=== PATIENT | male | born 1935 | race Caucasian/White ===

== ENCOUNTER → 2016-12-24 | Outpatient (CLI) | payer BC ==
[~2016-12-24] MED LIST: ASPEC81 PO; ATOR-22 PO; B-COTAB18 PO; CLOP1TAB15 PO; COQ10100 PO; GLGKIT; INSUINJ SC; INSUINJ17 SC; LATA0.009 OPB; METO1TAB69 PO; MULT-506 PO; NIAC1TAB59 PO; OMEG10007 PO; OMEP20CA9 PO; SYN100 PO
[2016-12-24 13:20] LABS: ESTIMATED AVERAGE GLUCOSE 174 mg/dl; HA1C FLAG Normal (Normal)
[2016-12-24 13:21] LABS: ALT/SGPT 34 U/L (12-78); BLOOD UREA NITROGEN 18 mg/dl (7-18); BUN/CREATININE RATIO 16.4 (10-20); CALCIUM 8.7 mg/dl (8.5-10.1); CARBON DIOXIDE 27 mmol/L (21-32); CHLORIDE 105 mmol/L (98-107); GLUCOSE 198 mg/dl (70-99); POTASSIUM 4.5 mmol/L (3.5-5.1); SODIUM 139 mmol/L (136-145)
[2016-12-24 13:24] LABS: ALKALINE PHOSPHATASE 107 U/L (45-117); AST/SGOT 20 U/L (15-37)
== END | disposition home or self-care (01) ==
LOC: C.LAB1850 12:14
PROVIDERS: ATTEND Internal Medicine
DX: E11.8 Type 2 diabetes mellitus with unspecified complications (principal); E78.00 Pure hypercholesterolemia, unspecified

== ENCOUNTER → 2017-03-21 | Outpatient (CLI) | payer BC ==
[~2017-03-21] MED LIST changes: +METO100T44 PO; -METO1TAB69 PO
== END | disposition home or self-care (01) ==
LOC: C.LAB1850 07:36
PROVIDERS: ATTEND Urology
DX: R39.9 Unspecified symptoms and signs involving the genitourinary system (principal); Z85.46 Personal history of malignant neoplasm of prostate

== ENCOUNTER → 2017-05-09 | Outpatient (CLI) | payer BC ==
[~2017-05-09] MED LIST changes: -METO100T44 PO; +METO1TAB69 PO
[2017-05-09 09:44] LABS: BLOOD UREA NITROGEN 15 mg/dl (7-18); BUN/CREATININE RATIO 13.4 (10-20); CALCIUM 9.2 mg/dl (8.5-10.1); CARBON DIOXIDE 30 mmol/L (21-32); CHLORIDE 107 mmol/L (98-107); GLUCOSE 221 mg/dl (70-99); POTASSIUM 4.7 mmol/L (3.5-5.1); SODIUM 140 mmol/L (136-145)
[2017-05-09 09:54] LABS: CHOLESTEROL 159 mg/dl (0-200); CHOLESTEROL/HDL RATIO 3.7; HDL CHOLESTEROL 43 mg/dl; LDL CHOLESTEROL CALCULATED 82 mg/dl; TRIGLYCERIDES 171 mg/dl (0-150); VERY LOW DENSITY LIPOPROT CALC 34 mg/dl
[2017-05-09 12:37] LABS: ESTIMATED AVERAGE GLUCOSE 186 mg/dl; HA1C FLAG Normal (Normal)
== END | disposition home or self-care (01) ==
LOC: C.LAB1850 07:25
PROVIDERS: ATTEND Nurse Practitioner Family
DX: E11.8 Type 2 diabetes mellitus with unspecified complications (principal)

== ENCOUNTER → 2017-10-08 | Outpatient (CLI) | payer BC ==
[~2017-10-08] MED LIST changes: +METO100T44 PO; -METO1TAB69 PO
[2017-10-08 09:44] LABS: ESTIMATED AVERAGE GLUCOSE 171 mg/dl; HA1C FLAG Normal (Normal)
[2017-10-08 10:23] LABS: ALT/SGPT 36 U/L (12-78); AST/SGOT 23 U/L (15-37); BLOOD UREA NITROGEN 26 mg/dl (7-18); CALCIUM 8.5 mg/dl (8.5-10.1); CARBON DIOXIDE 24 mmol/L (21-32); CHLORIDE 108 mmol/L (98-107); CREATININE 1.03 mg/dl (0.60-1.40); GLUCOSE 125 mg/dl (70-99); POTASSIUM 4.3 mmol/L (3.5-5.1); SODIUM 138 mmol/L (136-145)
[2017-10-08 10:28] LABS: ALKALINE PHOSPHATASE 96 U/L (45-117)
[2017-10-08 10:39] LABS: RATIO 17.7 mcg/mg (0-30.0)
== END | disposition home or self-care (01) ==
LOC: C.LAB1850 08:02
PROVIDERS: ATTEND Urology
DX: E11.40 Type 2 diabetes mellitus with diabetic neuropathy, unspecified (principal); Z51.81 Encounter for therapeutic drug level monitoring; Z79.4 Long term (current) use of insulin; C61 Malignant neoplasm of prostate

== ENCOUNTER → 2018-03-17 | Outpatient (CLI) | payer BC | END | disposition home or self-care (01) | LOC: C.LAB1850 10:19 | PROVIDERS: ATTEND Urology | DX: R97.20 Elevated prostate specific antigen [PSA] (principal) ==

== ENCOUNTER 2020-09-15 17:00 | Inpatient (IN) ==
[2020-09-15] MEDS ORDERED: ASPIRIN CHEW 324 MG PO STA (17:55)
[2020-09-15] MEDS ORDERED: NITROGLYCERIN SL 0.4 MG/TAB TAB SL STA (17:57)
[2020-09-15] MEDS ORDERED: ASPIRIN CHEW 324 MG ONE (17:57)
[2020-09-15] MEDS ORDERED: HEPARIN SOD (PORCINE) 1000 UNIT/ML 10 ML VIAL ONE (17:57)
[2020-09-15] MEDS ORDERED: TICAGRELOR 90 MG TAB PO ONE (17:57)
--- NOTE | 2020-09-15 18:11 | XRay Report ---
XR chest 1V portable CLINICAL HISTORY: Chest pain COMPARISON STUDY: Chest radiograph February 10, 2014. FINDINGS: Median sternotomy wires are noted as well as mediastinal surgical clips. There is moderate cardiomegaly. No pneumothorax or pleural effusion is noted. Note is made of pulmonary vascular conges tion with reticulonodular interstitial thickening. Hazy opacity along the left heart border is unchan ged. No lobar consolidation is present. IMPRESSION: 1. Reticulonodular interstitial thickening. Pulmonary edema is favored. An infectious process could a ppear similar but is considered less likely. 2. Moderate cardiomegaly. 3. No change in hazy opacity along the left heart border which can be assessed on subsequent exams. ACT 112: Negative or not required by law. Electronically signed by: Al Alston M.D. 09/15/2020 6:09 PM
[2020-09-15 18:12] LABS: Basophils # (auto) 0.01 K/uL (0-0.2); Basophils % (auto) 0.1 %; Eosinophils # (auto) 0.01 K/uL (0-0.5); Eosinophils % (auto) 0.1 %; Hemoglobin 15.3 g/dL (14.0-18.0); Immature Granulocytes # (auto) 0.03 K/uL (0.00-0.02); Immature Granulocytes % (auto) 0.3 %; Lymphocytes # (auto) 1.12 K/uL (1.2-3.4); Lymphocytes % (auto) 10.1 %; Mean Corpuscular Hemoglobin 30.9 pg (25-34); Mean Corpuscular Hgb Conc 34.8 g/dL (32-36); Mean Corpuscular Volume 88.9 fL (80-100); Mean Platelet Volume 10.6 fL (7.4-10.4); Monocytes # (auto) 0.56 K/uL (0.11-0.59); Neutrophils % (auto) 84.4 %; Platelet Count 241 K/uL (130-400); RDW Coefficient of Variation 14.1 % (11.5-14.5); Red Blood Count 4.95 M/uL (4.7-6.1); White Blood Count 11.13 K/uL (4.8-10.8)
[2020-09-15] MEDS ORDERED: niCARdipine HCL INJ 2.5 MG/ML 10 ML AMP ONE (18:12)
[2020-09-15] MEDS ORDERED: HEPARIN (PORCINE) 1000 UNIT/ML 10 ML (CATH LAB USE ONLY) ONE (18:12)
[2020-09-15] MEDS ORDERED: fentaNYL citrate 100 MCG/2 ML VIAL ONE (18:13)
[2020-09-15] MEDS ORDERED: MIDAZOLAM HCL 1 MG/ML 2ML VIAL ONE (18:13)
[2020-09-15] MEDS ORDERED: NITROGLYCERIN/D5W 100MCG/ML 20ML SYR ONE (18:13)
[2020-09-15] MEDS ORDERED: HEPARIN SOD (PORCINE) 1000 UNIT/ML 10 ML VIAL IV STA (18:14)
[2020-09-15] MEDS ORDERED: CLOPIDOGREL BISULFATE 300 MG TAB ONE (18:22)
[2020-09-15 18:25] LABS: Partial Thromboplastin Ratio 1.1; Partial Thromboplastin Time 30.2 Seconds (21.0-31.0); Prothrombin Time 10.9 Seconds (9.0-12.0)
[2020-09-15 18:34] LABS: Albumin Level 3.6 gm/dl (3.4-5.0); BUN Creatinine Ratio 13.5 (10-20); Calcium 9.3 mg/dl (8.5-10.1); Creatinine Clr Calc Pharmacy 41.4 ml/min; Est GFR (African American) 44.2; Est GFR (Non-African American) 38.1; Magnesium 2.2 mg/dl (1.8-2.4); Potassium 4.9 mmol/L (3.5-5.1)
[2020-09-15 18:45] LABS: Albumin Globulin Ratio 0.8 (0.9-2); Beta-Hydroxybutyrate 3.78 mg/dl (0.2-2.81); Bilirubin,Total 0.7 mg/dl (0.2-1); Creatine Kinase MB 37.8 ng/ml (0.5-3.6); Globulin 4.6 gm/dl (2.5-4.0); Thyroid Stimulating Hormone 1.28 uIu/ml (0.300-4.500); Total Protein 8.2 gm/dl (6.4-8.2); Troponin I 3.02 ng/ml (0-0.045)
--- NOTE | 2020-09-15 19:44 | Post Anesthesia Assessment ---
Date of Service September 15, 2020 Post Sedation Assessment Vital Signs Temp Pulse Pulse Resp BP BP Pulse Ox 09/15/20 18:18 98 09/15/20 18:11 90 20 157/89 H 96 09/15/20 18:00 102 H 18 142/86 H 99 09/15/20 17:52 91 H 22 145/83 H 97 09/15/20 17:02 97.7 F 92 H 18 09/15/20 17:00 99 Recovery Score Activity: Moves 4 extremities Respiration: Deep Breath/Cough Circulation: +/-20% PreAnes Value Consciousness: Fully Awake Oxygen Saturation: O2 needed for >90% Discharge Sedation Level of Care: Fast Track Phase II Post Sedation Plan On clinical assessment, the patient appears to have tolerated the sedation without complications. Patient is recovering as anticipated. Patient will continue to be monitored by nursing and may be discharged when sedation discharge criteria are met per below protocol. Upon Completions of procedure up to 15 minutes continue every 5 minute vital signs and the P.A.R. score; then discharge to a Phase I or Fast Track to Phase II per the following guidelines: * Discharge Patient to appropriate Phase II area if PAR is 8 or greater or return to pre- procedure baseline. The post - procedure orders will be as directed. * If PAR score is less than 8 or not return to pre-procedure baseline then patient will follow Phase I monitoring till PAR is reached for Phase II. The Phase I may be done in procedure room or may call to secure a Phase I area. * If naloxone or flumazenil are used for reversal, hold in Phase I for continued monitoring from when last reversal dose was given for a minimum of 60 minutes or longer pending the nurse and/or physician discretion of patient condition before discharge to Phase II. Please call the Sedation Physician to re-evaluate and complete post-note for discharge to Phase II area. Do NOT discharge from procedure sedation or Phase 1 until post- sedation evaluation note is complete by procedure /sedation MD Sedation Discharge Instructions to be given to the patient at discharge to home.
[2020-09-15] MEDS ORDERED: ACETAMINOPHEN 325 MG TAB PO PRN (19:50)
[2020-09-15] MEDS ORDERED: ONDANSETRON INJ 2 MG/ML 2 ML VIAL IV PRN (19:50)
[2020-09-15] MEDS ORDERED: MoRPHine SULFATE 2 MG/ML CARP IV PRN (19:50)
[2020-09-15] MEDS ORDERED: Heparin IV Standard *NO* Bolus IV ONE (19:55)
[2020-09-15] MEDS ORDERED: NITROGLYCERIN SL 0.4 MG/TAB TAB SL PRN (19:55)
[2020-09-15] MEDS ORDERED: SODIUM CHLORIDE 0.9% 1000ML 1,000 ML IV SCH (20:00)
[2020-09-15] MEDS ORDERED: GLUCOSE 10 TABS/TUBE PO PRN (20:02)
[2020-09-15] MEDS ORDERED: GLUCAGON FOR INJ 1 MG VIAL SQ PRN (20:02)
[2020-09-15] MEDS ORDERED: DEXTROSE 50% 50 ML SYRINGE IV PRN (20:02)
[2020-09-15] MEDS ORDERED: GLUCOSE 40% GEL 15 GM TUBE PO PRN (20:02)
[2020-09-15] MEDS ORDERED: PHARMACY GLYCEMIC MGMT CONSULT PRN (20:09)
--- NOTE | 2020-09-15 20:17 | Cardiology Consultation ---
Date of Consultation September 15, 2020 Assessment & Plan (1) Acute [place]: Presentation concerning for inferior [place]. RCA previously with moderate to severe disease that was not bypassed in 2014. Recommend proceeding with emergent cardiac catheterization and possible primary PCI. No apparent contraindications to procedure. Discussed risks, benefits, alternatives of procedure with patient and they are willing to proceed. Given IV heparin and clopidogrel in the ED. Further recommendations pending findings of coronary angiograph History of Present Illness History of Present Illness 84-year-old man here with acute chest pain and ECG concerning for acute [place]. Patient seen emergently in the ED after heart alert activated upon arrival. Past cardiac history remarkable for coronary artery disease post two-vessel CABG in 2013 (ANURADHA to LAD, TESFAYE to circumflex), moderate to severe aortic stenosis, hypertension. He is followed by Dr. Trotter as an outpatient. 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 Patient active at baseline. Today was working in his yard when developed persistent shortness of breath. Has had similar shortness of breath with exertion usually resolving with rest but today symptoms persisted. Denies any real chest pain. In the ED when hemodynamically stable. No chest pain and shortness of breath had largely resolved. Initial ECG showed inferior ST elevations, lateral ST depressions as well as elevation in aVR. Allergies Allergy/AdvReac Type Severity Reaction Status Date / Time adhesive Allergy Mild RASH Verified 08/14/20 10:58 Penicillins Allergy Unknown RASH Verified 08/14/20 10:58 Home Medications Home Medications Medication Instructions Recorded Confirmed Type multivitamin 1 tab PO DAILY #30 tab 05/31/19 08/14/20 Rx omega-3 fatty acids 1,000 mg 1,000 mg PO DAILY #30 cap 05/31/19 08/14/20 Rx capsule vitamin B complex 1 tab PO DAILY #30 tab 05/31/19 08/14/20 Rx aspirin 325 mg tablet 325 mg PO DAILY tab 07/14/19 08/14/20 History latanoprost 0.005 % eye drops 1 drops OP DAILY ml 07/14/19 08/14/20 History levothyroxine 100 mcg tablet 100 mcg PO DAILY #90 tab 12/06/19 08/14/20 Rx losartan 25 mg tablet 25 mg PO DAILY #90 tab 12/06/19 08/14/20 Rx omeprazole 20 mg capsule,delayed 20 mg PO DAILY #90 cap 12/06/19 08/14/20 Rx release blood sugar diagnostic #180 ea 12/10/19 08/14/20 Rx metoprolol succinate 100 mg 100 mg PO DAILY #90 tab 05/08/20 08/14/20 Rx tablet,extended release 24 hr Humulin N NPH U-100 Insulin 100 See Rx Instructions SQ .COMPLEX 05/25/20 08/14/20 Rx unit/mL subcutaneous #50 ml NS Humulin R Regular U-100 Insuln 100 See Rx Instructions SQ BID #30 ml 05/25/20 08/14/20 Rx unit/mL injection solution NS insulin syringe-needle U-100 1 mL ea 05/25/20 08/14/20 History 31 gauge x 5/16" atorvastatin 20 mg tablet 20 mg PO QPM #90 tab 09/08/20 Rx Patient History Medical History (Updated 09/15/20 @ 20:14 by Shay Holt MD) CAD (coronary artery disease) (12/30/13) Diabetes mellitus, with long-term current use of insulin Diabetic peripheral neuropathy Elevated prostate specific antigen (PSA) GERD without esophagitis Glaucoma History of parotid cancer Hypercholesterolemia Hypertension Malignant neoplasm of prostate Mitral regurgitation Moderate to severe aortic stenosis Never smoker Obesity (BMI 30-39.9) Osteoarthritis of hands, bilateral Osteoarthritis of left knee Primary hypothyroidism Tricuspid regurgitation Type 2 diabetes mellitus, with long-term current use of insulin Surgical History H/O transfusion of whole blood H/O varicose veins November 1970 History of genitourinary surgery 04/05/2003 S/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 Family History Brother Prostate cancer Family/Other Cancer Diabetes Heart disease Hypertension Denies family history of Colon cancer Ovarian cancer Myocardial infarction Breast cancer Social History Smoking Status: Never smoker Second Hand Exposure: No; Hx Alcohol Use: Yes Hx Substance Use: No Preferred Language: Malay Visual Impairment: No Limitations Hearing Ability: Normal Beliefs That Will Affect Care: None marital status: / Current Living Situation: Alone current occupational status: retired Feels Safe at Home: Yes and No Childhood Exposure to Second-Hand Smoke: Yes Dental Care, Regularly: No Physical Activity Frequency: 3-4 Times per Week Seatbelt Use: always Sunscreen Use: No Review of Systems Review of Systems: All systems reviewed & are unremarkable except as noted in HPI & below Physical Exam Physical Exam: General: Comfortable, no acute distress HEENT: Sclerae anicteric, mucous membranes moist Lungs: Clear to auscultation bilaterally Cardiac: Regular rate and rhythm, 2/6 systolic ejection murmur, late peaking Abdomen: Soft, nontender, nondistended, positive bowel sounds. Extremities: Warm, well perfused, no edema. 2+ radial pulses Neuro: Nonfocal Psych: Alert orient x3, normal affect and mood Results & Data ([facility]) Vital Signs (Past 12 Hours) Vital Signs Temp Pulse Pulse Resp BP BP Pulse Ox 09/15/20 18:18 98 09/15/20 18:11 90 20 157/89 H 96 09/15/20 18:00 102 H 18 142/86 H 99 09/15/20 17:52 91 H 22 145/83 H 97 09/15/20 17:02 97.7 F 92 H 18 09/15/20 17:00 99 PG Care Time/CCT Total # of Minutes Spent Total Time Spent with Patient: Total time spent is greater than 50% in coordination of care (as documented) at patient's floor/unit and/or counseling patient: Coding Level of Care Code 09537 Initial Inpt Care Lvl 3 Diagnoses Acute W[place] I21.9
--- NOTE | 2020-09-15 20:23 | Post Operative Brief Note ---
Cardiology Brief Post Op Date of Surgery September 15, 2020 Pre & Post Diagnosis Operation Date: 09/15/20 18:00 <No data on this case meets the specified criteria> Procedure -- Curb And Gutter Laborer Aj Holt MD Operations Supervisor [employer] Young Estimated Blood Loss 10 Findings See Below 1. 100% chronic distal left main occlusion 2. 50 to 60% proximal to mid RCA 3. ANURADHA to LAD widely patent. 90+% mid LAD stenosis after anastomosis 4. TESFAYE to high first diagonal widely patent. Retrofills for left main. Proximal circumflex appears acute on chronically occluded. OM, left PLB fills slowly largely from retrograde left to left collaterals from diagonal. Recommendations: Culprit likely acute on chronic proximal circumflex occlusion. OM, left PLB partially fills via collaterals. Proximal circumflex lesion not amenable to PCI through graft and as patient is pain-free recommend medical management.
[2020-09-15] MEDS ORDERED: INSULIN HUMAN NPH SC ONE (21:00)
[2020-09-15] MEDS: HEPARIN SODIUM/DEXTROSE 25,000 UNITS/500 ML BAG IV SCH (21:20)
[2020-09-15] MEDS: METOPROLOL TARTRATE 25 MG TAB PO SCH (21:34)
[2020-09-15] MEDS: INSULIN ASPART 100 UNITS/ML 3 ML PEN SC SCH (21:51)
--- NOTE | 2020-09-15 23:25 | Cardiac Catheterization ---
[facility] Data: Sign Maker Cardiac Status Clinical evaluation leading to the procedure CAD Presenation: STEMI Anginal Classification: CCS IV Heart Failure: No Cardiogenic Shock within 24 Hours: No Cardiac Arrest within 24 Hours: No Imaging Studies Past 6 Months: Yes Stress Studies Past 6 Months: No Diagnostic Physicians Name: Aj Holt MD Status: Emergency Closure Device Percutaneous Entry Location: Femoral Closure Device: Angio-Seal Recommendations: Medical Therapy and/or Counseling Intraprocedure Events Significant Disection: No Perforation: No Cardiac Cath Procedure Full Procedure Date September 15, 2020 Pre-Procedure Diagnosis Pre-Procedure Diagnosis: STEMI AUC Score AUC Score: 9 Post-Procedure Diagnosis Post-Procedure Diagnosis: Severe CAD Procedure(s) Performed Procedure(s) Performed: Coronary Angiography, Bypass Graft Angiography and Femoral Artery Angiography Associate Professor Of Music Aj Holt MD Varnish Blender(s) Young Estimated Blood Loss Estimated Blood Loss: 10 Medication(s) Medication(s): Clopidogrel, Fentanyl, Lidocaine 1%, Nicardipine, Nitroglycerin and Versed Summary of Findings Indication: Acute coronary syndrome. History of CAD post two-vessel CABG (ANURADHA to LAD, TESFAYE to circumflex). Access: 6 Fr right common femoral artery Catheters: JR4, JL4, NUBIA, pigtail Findings: LM -diffusely diseased, 100% distal occlusion LADproximally fills via retrograde filling from diagonal. Diffuse proximal to mid disease prior to takeoff of small second diagonal with 90% ostial stenosis. [id number]% acute on chronic appearing occlusion. Medium caliber OM 2, left PLB fill primarily via retrograde left to left collaterals from diagonal. RCA - dominant, small caliber, 50 to 60% proximal to mid disease. Small distal RCA, right PDA without significant disease ANURADHA to LADwidely patent. 90+% focal stenosis in mid LAD just after anastomosis. TESFAYE to high first diagonalwidely patent. Diagonal without significant disease after anastomosis. Arterial Closure: Angio-Seal Summary: 1. Severe [place] multivessel coronary artery disease -100% chronic distal left main occlusion 100% proximal acute on chronic circumflex occlusion 90+% mid LAD stenosis after anastomosis of ANURADHA 50 to 60% proximal to mid RCA 2. Widely patent ANURADHA to LAD, TESFAYE to first diagonal. Recommendations: Acute culprit thought to be acute on chronic occlusion of proximal circumflex. Suspect that medium caliber OM 2, left PLB previously filled partially via flow from bypassed diagonal. Proximal circumflex not amenable to PCI via TESFAYE bypass graft. In the setting of left to left collaterals to circumflex territory and with patient being chest pain-free, recommend medical management. Admit to telemetry Trend troponin until peak Check echocardiogram in a.m. Continue heparin infusion for 48 hours Continue DAPT with aspirin, clopidogrel Further consideration of PCI to mid LAD anastomosis pending clinical course. Hemodynamics Rest Ao:: 114/48/78 Final Ao: 130/51/82 LV: -- Recommendations Recommendations: Medical Therapy and/or Counseling Specimens Specimens: None Radiation Exposure (mGy) 2404 Contrast (mls) 80 Fluids (cc crystalloids) Fluids (cc crystalloids): 75 Drains Drains: none Anesthesia moderate Procedural Complication(s) None Disposition PCU I attest to the content of the Intraoperative Record and any orders documented therein. Any exceptions are noted below. [facility] Card Cath Procedure Codes Cardiac Catheterization Procedure 1: Cardiovascular Cath Procedures: 55376 Coronaries and Grafts/IM (venous & atrial) Moderate Sedation Procedure 1: Sedation/Anesthesia: 25119 Mod Sedation by the same physician;Init15 Min Child Age 5 & Up Procedure 2: Sedation/Anesthesia: 84828 Mod Sedation by the same physician; Ea [id number] Minutes PG Care Time/CCT Total # of Minutes Spent Total Time Spent with Patient: Total time spent is greater than 50% in coordination of care (as documented) at patient's floor/unit and/or counseling patient:
--- NOTE | 2020-09-15 23:36 | Emergency Department Note ---
History of Present Illness General Chief complaint: Shortness of Breath/Dyspnea Stated complaint: sob Time Seen by Provider: 09/15/20 17:45 Source: patient and RN notes reviewed Mode of arrival: ambulatory Limitations: no limitations History of Present Illness Provider complaint: Shortness of breath This patient is an 84-year-old male who presents to the emergency department with complaints of shortness of breath. The patient states it began earlier this afternoon while he was doing yard work. Patient states it feels currently like there is a squeezing sensation across his chest although it is minimal. Patient denies any nausea, vomiting, abdominal pain. He states he had a two- vessel bypass done at [facility] approximately 6 years ago. He follows with Dr. Trotter and states currently they are "working on a heart valve." Home Medications Home Medications Medication Instructions Recorded Confirmed Type multivitamin 1 tab PO DAILY #30 tab 05/31/19 08/14/20 Rx omega-3 fatty acids 1,000 mg 1,000 mg PO DAILY #30 cap 05/31/19 08/14/20 Rx capsule vitamin B complex 1 tab PO DAILY #30 tab 05/31/19 08/14/20 Rx aspirin 325 mg tablet 325 mg PO DAILY tab 07/14/19 08/14/20 History latanoprost 0.005 % eye drops 1 drops OP DAILY ml 07/14/19 08/14/20 History levothyroxine 100 mcg tablet 100 mcg PO DAILY #90 tab 12/06/19 08/14/20 Rx losartan 25 mg tablet 25 mg PO DAILY #90 tab 12/06/19 08/14/20 Rx omeprazole 20 mg capsule,delayed 20 mg PO DAILY #90 cap 12/06/19 08/14/20 Rx release blood sugar diagnostic #180 ea 12/10/19 08/14/20 Rx metoprolol succinate 100 mg 100 mg PO DAILY #90 tab 05/08/20 08/14/20 Rx tablet,extended release 24 hr Humulin N NPH U-100 Insulin 100 See Rx Instructions SQ .COMPLEX 05/25/20 08/14/20 Rx unit/mL subcutaneous #50 ml NS Humulin R Regular U-100 Insuln 100 See Rx Instructions SQ BID #30 ml 05/25/20 08/14/20 Rx unit/mL injection solution NS insulin syringe-needle U-100 1 mL ea 05/25/20 08/14/20 History 31 gauge x 5/16" atorvastatin 20 mg tablet 20 mg PO QPM #90 tab 09/08/20 Rx Allergies Allergy/AdvReac Type Severity Reaction Status Date / Time adhesive Allergy Mild RASH Verified 08/14/20 10:58 Penicillins Allergy Unknown RASH Verified 08/14/20 10:58 Past Med/Surg History Medical History (Updated 09/16/20 @ 00:15 by Martha Castillo MD) CAD (coronary artery disease) (12/30/13) Diabetes mellitus, with long-term current use of insulin Diabetic peripheral neuropathy Elevated prostate specific antigen (PSA) GERD without esophagitis Glaucoma History of parotid cancer Hypercholesterolemia Hypertension Malignant neoplasm of prostate Mitral regurgitation Moderate to severe aortic stenosis Never smoker Obesity (BMI 30-39.9) Osteoarthritis of hands, bilateral Osteoarthritis of left knee Primary hypothyroidism Tricuspid regurgitation Type 2 diabetes mellitus, with long-term current use of insulin Surgical History H/O transfusion of whole blood H/O varicose veins November 1970 History of genitourinary surgery 04/05/2003 S/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 Family History Brother Prostate cancer Family/Other Cancer Diabetes Heart disease Hypertension Denies family history of Colon cancer Ovarian cancer Myocardial infarction Breast cancer Social History Smoking Status: Never smoker Second Hand Exposure: No; Hx Alcohol Use: Yes Alcohol type: beer Hx Substance Use: No Preferred Language: Chinese Communication Ability: Effective Visual Impairment: No Limitations Hearing Ability: Normal 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 and A total of 10 systems reviewed and were otherwise negative Physical Exam Vital Signs Vital Signs - 24 hr 09/15/20 17:00 09/15/20 17:02 09/15/20 17:52 Temperature 36.5 C Temperature Source Oral Pulse Rate 92 H 91 H Pulse Rate [Apical] Respiratory Rate 18 22 Respiratory Effort / Characteristics Non-Labored Spontaneous Respiratory Depth Normal Respiratory Pattern Blood Pressure 145/83 H Blood Pressure [Left Arm] Blood Pressure Mean 107 Blood Pressure Mean [Left Arm] Blood Pressure Position [Left Arm] Pulse Oximetry 99 97 Oxygen Delivery Method Room Air Room Air Oxygen Flow Rate Sepsis Recent Fever Within 48 Hours No Sepsis New/Unexplained Change in Mental Status No Sepsis Action Taken by Nursing No Action Required 09/15/20 18:00 09/15/20 18:11 09/15/20 18:18 Temperature Temperature Source Pulse Rate 90 Pulse Rate [Apical] 102 H Respiratory Rate 18 20 Respiratory Effort / Characteristics Non-Labored Spontaneous Respiratory Depth Normal Respiratory Pattern Regular Blood Pressure 157/89 H Blood Pressure [Left Arm] 142/86 H Blood Pressure Mean 128 Blood Pressure Mean [Left Arm] 104 Blood Pressure Position [Left Arm] Pulse Oximetry 99 96 98 Oxygen Delivery Method Room Air Room Air Room Air Oxygen Flow Rate Sepsis Recent Fever Within 48 Hours Sepsis New/Unexplained Change in Mental Status Sepsis Action Taken by Nursing 09/15/20 19:30 Temperature 36.5 C Temperature Source Oral Pulse Rate Pulse Rate [Apical] 86 Respiratory Rate 20 Respiratory Effort / Characteristics Respiratory Depth Respiratory Pattern Blood Pressure Blood Pressure [Left Arm] 121/75 Blood Pressure Mean Blood Pressure Mean [Left Arm] 90 Blood Pressure Position [Left Arm] Lying Pulse Oximetry 94 Oxygen Delivery Method Nasal Cannula Oxygen Flow Rate 4 Sepsis Recent Fever Within 48 Hours Sepsis New/Unexplained Change in Mental Status Sepsis Action Taken by Nursing Vital signs reviewed. General: Well-appearing 84 yo male, in no significant distress. HEENT: No scleral icterus, PERRLA, neck supple. Atraumatic. Cardiovascular: Regular rate and rhythm, systolic ejection murmur Pulmonary: Clear to auscultation bilaterally, normal work of breathing. Abdomen: Soft, nontender, nondistended, positive bowel sounds. Musculoskeletal: Atraumatic, no significant peripheral edema. Neurologic: Patient awake alert and oriented x 3 Skin: Warm, dry, no rash Course Administered Medications Sodium Chloride (Nss 1000ml) 1,000 mls @ 100 mls/hr IV .Q10H ARIAN Stop: 09/16/20 03:29 Last Admin: 09/15/20 21:23 Dose: 100 mls/hr Documented by: [id number] Heparin Sodium/Dextrose (Heparin Sodium/Dextrose) 25,000 units in 500 mls @ 31 mls/hr IV .Q16H8M [facility]; Protocol Stop: 10/15/20 19:59 Last Admin: 09/15/20 21:20 Dose: 1,550 units/hr, 31 mls/hr Documented by: [id number] Cosigned by: [id number] Insulin Aspart (Insulin Aspart 100 Units/Ml 3 Ml Pen) 0 units SC ACHS [facility] Stop: 10/15/20 20:59 Last Admin: 09/15/20 21:51 Dose: 22 units Documented by: [id number] Cosigned by: [id number] Metoprolol Tartrate (Metoprolol Tartrate 25 Mg Tab) 25 mg PO Q8H [facility] Stop: 10/15/20 20:14 Last Admin: 09/15/20 21:34 Dose: 25 mg Documented by: [id number] Discontinued Medications Aspirin (Aspirin Chew 324 Mg) Confirm Administered Dose 324 mg .ROUTE .STK-MED ONE Stop: 09/15/20 17:58 Last Admin: 09/15/20 18:04 Dose: 324 mg Documented by: [id number] Clopidogrel Bisulfate (Clopidogrel Bisulfate 300 Mg Tab) Confirm Administered Dose 600 mg .ROUTE .STK-MED ONE Stop: 09/15/20 18:23 Last Admin: 09/15/20 18:24 Dose: 600 mg Documented by: [id number] Fentanyl Citrate (Fentanyl Citrate 100 Mcg/2 Ml Vial) Confirm Administered Dose 100 mcg .ROUTE .STK-MED ONE Stop: 09/15/20 18:14 Last Increment: 09/15/20 19:06 Dose: 50 mcg Documented by: [id number] Heparin Sodium (Porcine) (Heparin (Porcine) 1000 Unit/Ml 10 Ml (Cartography/Mapping Technician Use Only)) Confirm Administered Dose 10,000 units .ROUTE .STK-MED ONE Stop: 09/15/20 18:13 Last Admin: 09/15/20 19:07 Dose: Not Given Documented by: [id number] Heparin Sodium (Porcine) (Heparin Sod (Porcine) 1000 Unit/Ml 10 Ml Vial) 5,000 units IV NOW STA Stop: 09/15/20 18:15 Last Admin: 09/15/20 18:16 Dose: 5,000 units Documented by: [id number] Cosigned by: [id number] Heparin Sodium/Sodium Chloride (Heparin In Nss Infusion 1000 Unit/500 Ml (2 U/Ml) Bag) Confirm Administered Dose 3,000 units IV .STK-MED ONE Stop: 09/15/20 18:14 Last Admin: 09/15/20 19:06 Dose: 3,000 units Documented by: [id number] Insulin Human NPH (Insulin Human Nph) 40 units SC NOW ONE Stop: 09/15/20 21:01 Last Admin: 09/15/20 21:51 Dose: 40 units Documented by: [id number] Cosigned by: [id number] Midazolam HCl (Midazolam Hcl 1 Mg/Ml 2ml Vial) Confirm Administered Dose 2 mg .ROUTE .STK-MED ONE Stop: 09/15/20 18:14 Last Increment: 09/15/20 19:06 Dose: 1 mg Documented by: [id number] Nicardipine HCl (Nicardipine Hcl Inj 2.5 Mg/Ml 10 Ml Amp) Confirm Administered Dose 25 mg .ROUTE .STK-MED ONE Stop: 09/15/20 18:13 Last Admin: 09/15/20 19:07 Dose: 25 mg Documented by: [id number] Nitroglycerin (Nitroglycerin Sl 0.4 Mg/Tab Tab) 0.4 mg SL NOW STA Stop: 09/15/20 17:58 Last Admin: 09/15/20 18:03 Dose: 0.4 mg Documented by: [id number] Nitroglycerin/Dextrose (Nitroglycerin/D5w 100mcg/Ml 20ml Syr) Confirm Administered Dose 2,000 mcg .ROUTE .STK-MED ONE Stop: 09/15/20 18:14 Last Admin: 09/15/20 19:06 Dose: 2,000 mcg Documented by: [id number] Medical Decision Making Differential Diagnosis Reactive airway disease, pneumonia, pneumothorax, COPD, CHF, infections, cardiac ischemia, pulmonary embolism, musculoskeletal, gastrointestinal, as well as other pathologies. Medical Records Attestation: I reviewed the patient's medical records. Home Medications Current Medication List: was personally reviewed by me Laboratory Data Attestation: I reviewed the patient's lab results. Result diagrams: 09/15/20 17:59 09/15/20 17:59 Lab Results 09/15/20 09/15/20 09/15/20 Range/Units 17:59 17:59 17:59 WBC 11.13 H (4.8-10.8) K/uL RBC 4.95 (4.7-6.1) M/uL Hgb 15.3 (14.0-18.0) g/dL Hct 44.0 (42-52) % MCV 88.9 (80-100) fL MCH 30.9 (25-34) pg MCHC 34.8 (32-36) g/dL RDW Std Deviation 46.0 (36.4-46.3) fL RDW Coeff of Jaziel 14.1 (11.5-14.5) % Plt Count 241 (130-400) K/uL MPV 10.6 H (7.4-10.4) fL Immature Gran % (Auto) 0.3 % Neut % (Auto) 84.4 % Lymph % (Auto) 10.1 % [place] % (Auto) 5.0 % Eos % (Auto) 0.1 % Baso % (Auto) 0.1 % Neut # (Auto) 9.40 H (1.4-6.5) K/uL Lymph # (Auto) 1.12 L (1.2-3.4) K/uL [place] # (Auto) 0.56 (0.11-0.59) K/uL Eos # (Auto) 0.01 (0-0.5) K/uL Baso # (Auto) 0.01 (0-0.2) K/uL Immature Gran # (Auto) 0.03 H (0.00-0.02) K/uL PT 10.9 (9.0-12.0) Seconds INR 1.0 (0.9-1.1) APTT 30.2 (21.0-31.0) Seconds PTT Ratio 1.1 Sodium 132 L (136-145) mmol/L Potassium 4.9 (3.5-5.1) mmol/L Chloride 103 (98-107) mmol/L Carbon Dioxide 21 (21-32) mmol/L Anion Gap 8.0 (3-11) BUN 22 H (7-18) mg/dl Creatinine 1.64 H (0.6-1.4) mg/dl Est Cr Clr Drug Dosing 41.4 ml/min Est GFR ( Amer) 44.2 Est GFR (Non-Af Amer) 38.1 BUN/Creatinine Ratio 13.5 (10-20) Glucose 359 H* (70-99) mg/dl POC Glucose (70-99) mg/dl Calcium 9.3 (8.5-10.1) mg/dl Magnesium 2.2 (1.8-2.4) mg/dl Total Bilirubin 0.7 (0.2-1) mg/dl AST 82 H (15-37) U/L ALT 48 (12-78) U/L Alkaline Phosphatase 136 H (45-117) U/L Total Creatine Kinase 549 H (39-308) U/L CK-MB (CK-2) 37.8 H (0.5-3.6) ng/ml CK/CKMB % Calc 6.9 H (0-3.0) Troponin I 3.020 H* (0-0.045) ng/ml Total Protein 8.2 (6.4-8.2) gm/dl Albumin 3.6 (3.4-5.0) gm/dl Globulin 4.6 H (2.5-4.0) gm/dl Albumin/Globulin Ratio 0.8 L (0.9-2) Lipase 42 L (73-393) U/L Beta-Hydroxybutyric Acd 3.78 H (0.2-2.81) mg/dl TSH 1.280 (0.300-4.500) uIu/ml COVID-19 Eval Order SARS-CoV-2, RNA, NAAT (NEGATIVE) 09/15/20 09/15/20 09/15/20 Range/Units 18:00 18:00 18:00 WBC (4.8-10.8) K/uL RBC (4.7-6.1) M/uL Hgb (14.0-18.0) g/dL Hct (42-52) % MCV (80-100) fL MCH (25-34) pg MCHC (32-36) g/dL RDW Std Deviation (36.4-46.3) fL RDW Coeff of Jaziel (11.5-14.5) % Plt Count (130-400) K/uL MPV (7.4-10.4) fL Immature Gran % (Auto) % Neut % (Auto) % Lymph % (Auto) % [place] % (Auto) % Eos % (Auto) % Baso % (Auto) % Neut # (Auto) (1.4-6.5) K/uL Lymph # (Auto) (1.2-3.4) K/uL [place] # (Auto) (0.11-0.59) K/uL Eos # (Auto) (0-0.5) K/uL Baso # (Auto) (0-0.2) K/uL Immature Gran # (Auto) (0.00-0.02) K/uL PT (9.0-12.0) Seconds INR (0.9-1.1) APTT (21.0-31.0) Seconds PTT Ratio Sodium (136-145) mmol/L Potassium (3.5-5.1) mmol/L Chloride (98-107) mmol/L Carbon Dioxide (21-32) mmol/L Anion Gap (3-11) BUN (7-18) mg/dl Creatinine (0.6-1.4) mg/dl Est Cr Clr Drug Dosing ml/min Est GFR ( Amer) Est GFR (Non-Af Amer) BUN/Creatinine Ratio (10-20) Glucose (70-99) mg/dl POC Glucose 375 H* (70-99) mg/dl Calcium (8.5-10.1) mg/dl Magnesium (1.8-2.4) mg/dl Total Bilirubin (0.2-1) mg/dl AST (15-37) U/L ALT (12-78) U/L Alkaline Phosphatase (45-117) U/L Total Creatine Kinase (39-308) U/L CK-MB (CK-2) (0.5-3.6) ng/ml CK/CKMB % Calc (0-3.0) Troponin I (0-0.045) ng/ml Total Protein (6.4-8.2) gm/dl Albumin (3.4-5.0) gm/dl Globulin (2.5-4.0) gm/dl Albumin/Globulin Ratio (0.9-2) Lipase (73-393) U/L Beta-Hydroxybutyric Acd (0.2-2.81) mg/dl TSH (0.300-4.500) uIu/ml COVID-19 [facility] SARS-[facility]-2, RNA, NAAT NEGATIVE (NEGATIVE) 09/15/20 09/15/20 Range/Units 19:38 19:40 WBC (4.8-10.8) K/uL RBC (4.7-6.1) M/uL Hgb (14.0-18.0) g/dL Hct (42-52) % MCV (80-100) fL MCH (25-34) pg MCHC (32-36) g/dL RDW Std Deviation (36.4-46.3) fL RDW Coeff of Jaziel (11.5-14.5) % Plt Count (130-400) K/uL MPV (7.4-10.4) fL Immature Gran % (Auto) % Neut % (Auto) % Lymph % (Auto) % [place] % (Auto) % Eos % (Auto) % Baso % (Auto) % Neut # (Auto) (1.4-6.5) K/uL Lymph # (Auto) (1.2-3.4) K/uL [place] # (Auto) (0.11-0.59) K/uL Eos # (Auto) (0-0.5) K/uL Baso # (Auto) (0-0.2) K/uL Immature Gran # (Auto) (0.00-0.02) K/uL PT (9.0-12.0) Seconds INR (0.9-1.1) APTT (21.0-31.0) Seconds PTT Ratio Sodium (136-145) mmol/L Potassium (3.5-5.1) mmol/L Chloride (98-107) mmol/L Carbon Dioxide (21-32) mmol/L Anion Gap (3-11) BUN (7-18) mg/dl Creatinine (0.6-1.4) mg/dl Est Cr Clr Drug Dosing ml/min Est GFR ( Amer) Est GFR (Non-Af Amer) BUN/Creatinine Ratio (10-20) Glucose (70-99) mg/dl POC Glucose 329 H* 311 H* (70-99) mg/dl Calcium (8.5-10.1) mg/dl Magnesium (1.8-2.4) mg/dl Total Bilirubin (0.2-1) mg/dl AST (15-37) U/L ALT (12-78) U/L Alkaline Phosphatase (45-117) U/L Total Creatine Kinase (39-308) U/L CK-MB (CK-2) (0.5-3.6) ng/ml CK/CKMB % Calc (0-3.0) Troponin I (0-0.045) ng/ml Total Protein (6.4-8.2) gm/dl Albumin (3.4-5.0) gm/dl Globulin (2.5-4.0) gm/dl Albumin/Globulin Ratio (0.9-2) Lipase (73-393) U/L Beta-Hydroxybutyric Acd (0.2-2.81) mg/dl TSH (0.300-4.500) uIu/ml COVID-19 Eval Order SARS-CoV-2, RNA, NAAT (NEGATIVE) Imaging Data Radiologist's Impression: XR chest 1V portable CLINICAL HISTORY: Chest pain COMPARISON STUDY: Chest radiograph February 10, 2014. FINDINGS: Median sternotomy wires are noted as well as mediastinal surgical clips. There is moderate cardiomegaly. No pneumothorax or pleural effusion is noted. Note is made of pulmonary vascular congestion with reticulonodular interstitial thickening. Hazy opacity along the left heart border is unchanged. No lobar consolidation is present. IMPRESSION: 1. Reticulonodular interstitial thickening. Pulmonary edema is favored. An infectious process could appear similar but is considered less likely. 2. Moderate cardiomegaly. 3. No change in hazy opacity along the left heart border which can be assessed on subsequent exams. ACT 112: Negative or not required by law. Electronically signed by: Al Alston M.D. 09/15/2020 6:09 PM Dictated: 09/15/201807Transcribed: 09/15/201807 ECG Data Attestation: I personally reviewed and interpreted this ECG as follows: Indication: + SOB/dyspnea Rate (beats per minute): 91 Rhythm: + normal sinus ECG Intervals/blocks: + Normal QT-c (445) ECG [place]: + Normal ECG ST segments: + ST depression (Lateral) and + ST elevation (Inferior) ECG Findings: no PACs and no PVCs Blood Pressure Blood Pressure Findings: Normal blood pressure Blood Pressure Disposition: did not require urgent referral MDM Narrative This patient is an 84-year-old male who presents emergency department with his daughter by private vehicle. EKG was performed by nursing staff and reveals inferior ST elevation with reciprocal change. Patient did not have severe pain but did complain of a squeezing sensation. He did have shortness of breath with exertion. Patient does have a significant history of coronary artery disease post CABG. A heart alert was called. The patient was given 324 mg of aspirin and 1 sublingual nitroglycerin tablet. Chest x-ray was performed and reveals congestive change. Dr. Holt of interventional cardiology arrived at the [facility]'s bedside. Patient was taken to the catheterization lab for further evaluation. Patient and daughter expressed understanding of the plan and agreed. Impression & Plan ST elevation [place] (STEMI) Discharge Plan Visit Data Chief Complaint: Shortness of Breath/Dyspnea Stated Complaint: sob ED Provider: Martha Castillo Discharge Problem: ST elevation [place] (STEMI) Patient Disposition: Admitted As Inpatient Discharge Instructions Interventions: ED Discharge Assessment Last Done: 09/15/20 18:26 Discharge Problem: ST elevation [place] (STEMI) Qualifiers: Involved coronary artery: other inferior wall coronary artery Qualified Code(s): I21.19 - ST elevation (STEMI) myocardial infarction involving other coronary artery of inferior wall
[2020-09-16] MEDS: INSULIN ASPART 100 UNITS/ML 3 ML PEN SC SCH ×6 (00:34→21:03)
[2020-09-16 02:14] LABS: Basophils # (auto) 0.02 K/uL (0-0.2); Basophils % (auto) 0.2 %; Eosinophils # (auto) 0.02 K/uL (0-0.5); Eosinophils % (auto) 0.2 %; Hematocrit (blood only) 43.6 % (42-52); Hemoglobin 15.3 g/dL (14.0-18.0); Immature Granulocytes # (auto) 0.03 K/uL (0.00-0.02); Immature Granulocytes % (auto) 0.2 %; Lymphocytes # (auto) 1.61 K/uL (1.2-3.4); Lymphocytes % (auto) 12.1 %; Mean Corpuscular Hemoglobin 31.2 pg (25-34); Mean Corpuscular Hgb Conc 35.1 g/dL (32-36); Mean Platelet Volume 10.4 fL (7.4-10.4); Monocytes # (auto) 1.41 K/uL (0.11-0.59); Monocytes % (auto) 10.6 %; Neutrophils # (auto) 10.18 K/uL (1.4-6.5); Neutrophils % (auto) 76.7 %; Platelet Count 234 K/uL (130-400); RDW Standard Deviation 45.9 fL (36.4-46.3); White Blood Count 13.27 K/uL (4.8-10.8)
[2020-09-16 02:40] LABS: BUN Creatinine Ratio 17.8 (10-20); Calcium 8.4 mg/dl (8.5-10.1); Creatinine Clr Calc Pharmacy 54.1 ml/min; Est GFR (African American) 60.7; Est GFR (Non-African American) 52.4
[2020-09-16 03:06] LABS: Troponin I 60.2 ng/ml (0-0.045)
[2020-09-16 03:53] LABS: Partial Thromboplastin Time 55.5 Seconds (21.0-31.0)
[2020-09-16] MEDS: LEVOTHYROXINE SODIUM 100 MCG TABLET PO SCH (06:26)
[2020-09-16] MEDS: METOPROLOL TARTRATE 25 MG TAB PO SCH (06:26)
[2020-09-16 07:05] LABS: Estimated Average Glucose 180 mg/dl; Hemoglobin A1C 7.9 % (4.5-5.6)
[2020-09-16] MEDS ORDERED: PHARMACY GLYCEMIC MGMT CONSULT STA (08:33)
--- NOTE | 2020-09-16 08:34 | Hospitalist Consultation ---
Date of Consultation September 16, 2020 Assessment & Plan (1) ST elevation OK (STEMI): heparin drip aspirin and plavix beta johnie echocardiogram in progress during my visit -- report pending Dr. 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 Quijano with [facility] as outpatient Resume phototherapy after discharge (5) Type 2 diabetes mellitus, with long-term current use of insulin: A1c 7.9 glycemic management consult placed for close BG monitoring while inpatient (6) Malignant neoplasm of prostate: s/p prostatectomy checking post-void residual checking UA with recent symptoms of straining and difficulty starting stream will need to follow up as outpatient with urology (7) CAD (coronary artery disease): aspirin, plavix, lipitor, toprol 25mg q8h (8) Moderate to severe aortic stenosis: (9) Hypercholesterolemia: lipitor (10) GERD without esophagitis: stable (11) DVT prophylaxis: heparin drip diabetic diet full code History of Present Illness Attending Physician: Aj Holt MD History of Present Illness 84yo man PMH CAD s/p 2 vessel CABG, DM2, GERD, HTN, HLD, aortic stenosis, hypothyroidism, prostate ca s/p prostatectomy, 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 On 09-15 patient developed severe dyspnea. EKG significant for ST depressions I, II, aVL and elevations in II, aVR, V2 through V6. Patient went directly to cardiac cath. Found to have occlusion of proximal circumflex, not amenable to PCI. Dr. Holt recommended medical management with heparin, aspirin, plavix. Patient was admitted to telemetry unit. We are consulted for medical management of DM2, HTN, hypothyroidism, s/p prostatectomy. Patient has hx DM2, A1c 7.9% today. Controlled with insulin NPH 40 units am and 36 units pm as well as insulin with meals, but he can not remember the dose. Denies associated retinopathy, neuoropathy or nephropathy. He has had HTN for many years. Here in the hospital the BP ranged 111/72 - 157/89 overnight. Patient denies associated CP, headache, sob, dizziness. He has walked to the bathroom and has no symptoms. SOB has improved dramatically from yesterday. He has hypothyroidism many years duration. TSH today 1.28 which indicates his hypothyroid is well controlled with synthroid 100mcg. He denies associated constipation or diarrhea, dry or clammy skin, weight loss or gain. Patient had prostate cancer many years ago, underwent prostatectomy. Has been urinating without difficulty for > 5 years since his surgery. About 2 weeks ago he started feeling like he needed to go but could not and was straining to urinate. He urinated today without difficulty, no dysuria, no change in odor. Allergies Allergy/AdvReac Type Severity Reaction Status Date / Time adhesive Allergy Mild RASH Verified 08/14/20 10:58 Penicillins Allergy Unknown RASH Verified 08/14/20 10:58 Home Medications Home Medications Medication Instructions Recorded Confirmed Type multivitamin 1 tab PO DAILY #30 tab 05/31/19 08/14/20 Rx omega-3 fatty acids 1,000 mg 1,000 mg PO DAILY #30 cap 05/31/19 08/14/20 Rx capsule vitamin B complex 1 tab PO DAILY #30 tab 05/31/19 08/14/20 Rx aspirin 325 mg tablet 325 mg PO DAILY tab 07/14/19 08/14/20 History latanoprost 0.005 % eye drops 1 drops OP DAILY ml 07/14/19 08/14/20 History levothyroxine 100 mcg tablet 100 mcg PO DAILY #90 tab 12/06/19 08/14/20 Rx losartan 25 mg tablet 25 mg PO DAILY #90 tab 12/06/19 08/14/20 Rx omeprazole 20 mg capsule,delayed 20 mg PO DAILY #90 cap 12/06/19 08/14/20 Rx release blood sugar diagnostic #180 ea 12/10/19 08/14/20 Rx metoprolol succinate 100 mg 100 mg PO DAILY #90 tab 05/08/20 08/14/20 Rx tablet,extended release 24 hr Humulin N NPH U-100 Insulin 100 See Rx Instructions SQ .COMPLEX 05/25/20 08/14/20 Rx unit/mL subcutaneous #50 ml NS Humulin R Regular U-100 Insuln 100 See Rx Instructions SQ BID #30 ml 05/25/20 08/14/20 Rx unit/mL injection solution NS insulin syringe-needle U-100 1 mL ea 05/25/20 08/14/20 History 31 gauge x 5/16" atorvastatin 20 mg tablet 20 mg PO QPM #90 tab 09/08/20 Rx Patient History Medical History (Updated 09/16/20 @ 08:50 by Breana Galvez MD) CAD (coronary artery disease) (12/30/13) Diabetes mellitus, with long-term current use of insulin Diabetic peripheral neuropathy Elevated prostate specific antigen (PSA) GERD without esophagitis Glaucoma History of parotid cancer Hypercholesterolemia Hypertension Malignant neoplasm of prostate Mitral regurgitation Moderate to severe aortic stenosis Never smoker Obesity (BMI 30-39.9) Osteoarthritis of hands, bilateral Osteoarthritis of left knee Primary hypothyroidism Tricuspid regurgitation Type 2 diabetes mellitus, with long-term current use of insulin Surgical History H/O transfusion of whole blood H/O varicose veins November 1970 History of genitourinary surgery 04/05/2003 S/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 Family History Brother Prostate cancer Family/Other Cancer Diabetes Heart disease Hypertension Denies family history of Colon cancer Ovarian cancer Myocardial infarction Breast cancer Social History Smoking Status: Never smoker Second Hand Exposure: No; Hx Alcohol Use: Yes Alcohol type: beer Hx Substance Use: No Preferred Language: Romanian Communication Ability: Effective Visual Impairment: No Limitations Hearing Ability: Normal [employer] Required: No Beliefs That Will Affect Care: None marital status: / Current Living Situation: Alone current occupational status: retired Other Information That Helps Us Care for You: No Feels Safe at Home: Yes Safety Concerns: Feels Safe At This Time Childhood Exposure to Second-Hand Smoke: Yes Dental Care, Regularly: No Physical Activity Frequency: 3-4 Times per Week Seatbelt Use: always Sunscreen Use: No Assistive Devices: Denture - Upper, Denture - Lower and Glasses Review of Systems Constitutional: no fever, no chills, no fatigue, no weakness, no anorexia, no weight loss and no weight gain Ear, Nose, Mouth, Throat: no nasal congestion, no sore throat and no dysphagia Respiratory: no cough and no dyspnea Cardiovascular: no chest pain, no dyspnea on exertion, no orthopnea and no palpitations Gastrointestinal: no abdominal pain, no nausea, no vomiting, no hematemesis, no dysphagia, no constipation, no diarrhea/loose stools, no blood in stools and no melena Musculoskeletal: no back pain, no joint pain, no myalgia and no muscle weakness Integumentary: no rash, no lesions, no skin ulcer, no erythema, no dry skin and no pruritus Neurologic: no falls, no localized weakness, no generalized weakness, no numbness, no paresthesia, no tremor(s) and no headache(s) Psychiatric: no depression, no suicidal ideation, no homicidal ideation and no anxiety Endocrine: no cold intolerance and no heat intolerance Hematologic / Lymphatic: no easy bleeding and no easy bruising Physical Exam Constitutional: well developed and well nourished; no acute distress Eyes: PERRL, conjunctivae normal, anicteric sclerae ENMT: Mouth: oral mucous membranes not dry Respiratory: normal respiratory effort; no respiratory distress and no labored breathing Auscultation: lungs clear to auscultation bilaterally; no crackles, no rales, no rhonchi and no wheezes Cardiovascular: Rate/Rhythm: regular rate and regular rhythm Heart Sounds: no murmur and no cardiac rub Vessels: normal peripheral pulses and radial pulses present; no JVD Extremities: no edema Gastrointestinal (Abdomen): Inspection/Auscultation: abdomen normal to inspection and normal bowel sounds; abdomen not distended P ercussion/Palpation: abdomen soft; abdomen nontender, no guarding, abdomen not rigid and no hepatosplenomegaly Musculoskeletal: Head/Neck/Chest: normocephalic and head atraumatic Spine: no cervical spinal tenderness, no cervical muscular tenderness, no thoracic spinal tenderness and no lumbar spinal tenderness Skin: no rashes, warm and dry Neurologic: CN's II-XI intact bilaterally and moves all extremities Motor/Sensory: no tremor and no sensory deficit Psychiatric: Orientation: alert, oriented to person, oriented to place and oriented to time Apperance: appropriately groomed; not disheveled Affect: euthymic affect; no anxious affect and no tearful affect Genitourinary: no Vega catheter Results & Data Results & Data ([facility]) Vital Signs (Past 12 Hours) Vital Signs Temp Pulse Pulse Resp BP Pulse Ox 09/16/20 07:31 36.7 C 72 19 114/70 95 09/16/20 04:00 36.6 C 75 18 111/72 97 09/15/20 23:50 80 09/15/20 23:33 36.9 C 76 18 110/68 95 09/15/20 21:40 76 134/80 97 09/15/20 21:10 81 139/81 93 09/15/20 20:40 78 136/83 98 09/15/20 20:25 37.1 C 85 16 143/80 H 94 Laboratory Results Abnormal lab results 09/15/20 09/15/20 09/15/20 Range/Units 17:59 17:59 18:00 WBC 11.13 H (4.8-10.8) K/uL MPV 10.6 H (7.4-10.4) fL Neut # (Auto) 9.40 H (1.4-6.5) K/uL Lymph # (Auto) 1.12 L (1.2-3.4) K/uL [place] # (Auto) (0.11-0.59) K/uL Immature Gran # (Auto) 0.03 H (0.00-0.02) K/uL APTT (21.0-31.0) Seconds Sodium 132 L (136-145) mmol/L Chloride (98-107) mmol/L BUN 22 H (7-18) mg/dl Creatinine 1.64 H (0.6-1.4) mg/dl Glucose 359 H* (70-99) mg/dl POC Glucose 375 H* (70-99) mg/dl Hemoglobin A1c (4.5-5.6) % Calcium (8.5-10.1) mg/dl AST 82 H (15-37) U/L Alkaline Phosphatase 136 H (45-117) U/L Total Creatine Kinase 549 H (39-308) U/L CK-MB (CK-2) 37.8 H (0.5-3.6) ng/ml CK/CKMB % Calc 6.9 H (0-3.0) Troponin I 3.020 H* (0-0.045) ng/ml Globulin 4.6 H (2.5-4.0) gm/dl Albumin/Globulin Ratio 0.8 L (0.9-2) Lipase 42 L (73-393) U/L Beta-Hydroxybutyric Acd 3.78 H (0.2-2.81) mg/dl 09/15/20 09/15/20 09/15/20 Range/Units 19:38 19:40 21:29 WBC (4.8-10.8) K/uL MPV (7.4-10.4) fL Neut # (Auto) (1.4-6.5) K/uL Lymph # (Auto) (1.2-3.4) K/uL [place] # (Auto) (0.11-0.59) K/uL Immature Gran # (Auto) (0.00-0.02) K/uL APTT (21.0-31.0) Seconds Sodium (136-145) mmol/L Chloride (98-107) mmol/L BUN (7-18) mg/dl Creatinine (0.6-1.4) mg/dl Glucose (70-99) mg/dl POC Glucose 329 H* 311 H* 292 H (70-99) mg/dl Hemoglobin A1c (4.5-5.6) % Calcium (8.5-10.1) mg/dl AST (15-37) U/L Alkaline Phosphatase (45-117) U/L Total Creatine Kinase (39-308) U/L CK-MB (CK-2) (0.5-3.6) ng/ml CK/CKMB % Calc (0-3.0) Troponin I (0-0.045) ng/ml Globulin (2.5-4.0) gm/dl Albumin/Globulin Ratio (0.9-2) Lipase (73-393) U/L Beta-Hydroxybutyric Acd (0.2-2.81) mg/dl 09/16/20 09/16/20 09/16/20 Range/Units 00:31 01:39 01:39 WBC 13.27 H (4.8-10.8) K/uL MPV (7.4-10.4) fL Neut # (Auto) 10.18 H (1.4-6.5) K/uL Lymph # (Auto) (1.2-3.4) K/uL [place] # (Auto) 1.41 H (0.11-0.59) K/uL Immature Gran # (Auto) 0.03 H (0.00-0.02) K/uL APTT (21.0-31.0) Seconds Sodium (136-145) mmol/L Chloride 108 H (98-107) mmol/L BUN 22 H (7-18) mg/dl Creatinine (0.6-1.4) mg/dl Glucose 228 H (70-99) mg/dl POC Glucose 243 H (70-99) mg/dl Hemoglobin A1c (4.5-5.6) % Calcium 8.4 L (8.5-10.1) mg/dl AST (15-37) U/L Alkaline Phosphatase (45-117) U/L Total Creatine Kinase (39-308) U/L CK-MB (CK-2) (0.5-3.6) ng/ml CK/CKMB % Calc (0-3.0) Troponin I 60.200 H* (0-0.045) ng/ml Globulin (2.5-4.0) gm/dl Albumin/Globulin Ratio (0.9-2) Lipase (73-393) U/L Beta-Hydroxybutyric Acd (0.2-2.81) mg/dl 09/16/20 09/16/20 09/16/20 Range/Units 01:39 03:15 03:57 WBC (4.8-10.8) K/uL MPV (7.4-10.4) fL Neut # (Auto) (1.4-6.5) K/uL Lymph # (Auto) (1.2-3.4) K/uL [place] # (Auto) (0.11-0.59) K/uL Immature Gran # (Auto) (0.00-0.02) K/uL APTT 55.5 H* (21.0-31.0) Seconds Sodium (136-145) mmol/L Chloride (98-107) mmol/L BUN (7-18) mg/dl Creatinine (0.6-1.4) mg/dl Glucose (70-99) mg/dl POC Glucose 154 H (70-99) mg/dl Hemoglobin A1c 7.9 H (4.5-5.6) % Calcium (8.5-10.1) mg/dl AST (15-37) U/L Alkaline Phosphatase (45-117) U/L Total Creatine Kinase (39-308) U/L CK-MB (CK-2) (0.5-3.6) ng/ml CK/CKMB % Calc (0-3.0) Troponin I (0-0.045) ng/ml Globulin (2.5-4.0) gm/dl Albumin/Globulin Ratio (0.9-2) Lipase (73-393) U/L Beta-Hydroxybutyric Acd (0.2-2.81) mg/dl 09/16/20 Range/Units 07:29 WBC (4.8-10.8) K/uL MPV (7.4-10.4) fL Neut # (Auto) (1.4-6.5) K/uL Lymph # (Auto) (1.2-3.4) K/uL [place] # (Auto) (0.11-0.59) K/uL Immature Gran # (Auto) (0.00-0.02) K/uL APTT (21.0-31.0) Seconds Sodium (136-145) mmol/L Chloride (98-107) mmol/L BUN (7-18) mg/dl Creatinine (0.6-1.4) mg/dl Glucose (70-99) mg/dl POC Glucose 148 H (70-99) mg/dl Hemoglobin A1c (4.5-5.6) % Calcium (8.5-10.1) mg/dl AST (15-37) U/L Alkaline Phosphatase (45-117) U/L Total Creatine Kinase (39-308) U/L CK-MB (CK-2) (0.5-3.6) ng/ml CK/CKMB % Calc (0-3.0) Troponin I (0-0.045) ng/ml Globulin (2.5-4.0) gm/dl Albumin/Globulin Ratio (0.9-2) Lipase (73-393) U/L Beta-Hydroxybutyric Acd (0.2-2.81) mg/dl Medications Administered Current Inpatient Medications Acetaminophen (Acetaminophen 325 Mg Tab) 650 mg PO Q4H PRN PRN Reason: MILD Pain (Scale 1,2,3) Stop: 10/15/20 19:49 Aspirin (Aspirin 81 Mg Ectab) 81 mg PO QAM [facility] Stop: 10/16/20 08:59 Atorvastatin Calcium (Atorvastatin 40 Mg Tab) 80 mg PO QAM [facility] Stop: 10/16/20 08:59 Clopidogrel Bisulfate (Clopidogrel Bisulfate 75 Mg Tab) 75 mg PO QAM [facility] Stop: 10/16/20 08:59 Dextrose (Dextrose 50% 50 Ml Syringe) 25 - 50 ml IV UD PRN; Protocol PRN Reason: Hypoglycemia Protocol Stop: 10/15/20 20:01 Glucagon (Glucagon For Inj 1 Mg Vial) 1 mg SQ UD PRN; Protocol PRN Reason: Hypoglycemia Protocol Stop: 10/15/20 20:01 Glucose (Glucose 10 Tabs/Tube) 4 - 8 tabs PO UD PRN; Protocol PRN Reason: Hypoglycemia Protocol Stop: 10/15/20 20:01 Glucose (Glucose 40% Gel 15 Gm Tube) 15 - 30 gm PO UD PRN; Protocol PRN Reason: Hypoglycemia Protocol Stop: 10/15/20 20:01 Heparin Sodium/Dextrose (Heparin Sodium/Dextrose) 25,000 units in 500 mls @ 31 mls/hr IV .Q16H8M ARIAN; Protocol Stop: 10/15/20 19:59 Last Titration: 09/16/20 04:16 Dose: 1,550 units/hr, 31 mls/hr Documented by: Insulin Aspart (Insulin Aspart 100 Units/Ml 3 Ml Pen) 0 units SC ACHS [facility] Stop: 10/15/20 20:59 Last Admin: 09/15/20 21:51 Dose: 22 units Documented by: Insulin Human NPH (Insulin Human Nph) 45 units SC 0900 [facility] Stop: 09/16/20 12:00 Latanoprost (Latanoprost 0.005% Op Soln 2.5 Ml Btl) 1 drops OP DAILY ARIAN Stop: 10/16/20 08:59 Levothyroxine Sodium (Levothyroxine Sodium 100 Mcg Tablet) 100 mcg PO DAILYBB [facility] Stop: 10/16/20 06:29 Last Admin: 09/16/20 06:26 Dose: 100 mcg Documented by: Metoprolol Tartrate (Metoprolol Tartrate 25 Mg Tab) 25 mg PO Q8H [facility] Stop: 10/15/20 20:14 Last Admin: 09/16/20 06:26 Dose: 25 mg Documented by: Miscellaneous (Carbohydrates For Hypoglycemia ) 15 - 30 gm PO UD PRN PRN Reason: Hypoglycemia Protocol Stop: 10/15/20 20:01 Miscellaneous Information (Pharmacy Glycemic Mgmt Consult) 1 ea N/A UD PRN; Protocol PRN Reason: Consult Stop: 10/15/20 20:08 Miscellaneous Information (Pharmacy Glycemic Mgmt Consult) 1 ea N/A NOW STA Stop: 09/16/20 08:34 Morphine Sulfate (Morphine Sulfate 2 Mg/Ml Carp) 2 mg IV Q2H PRN PRN Reason: MODERATE to SEVERE Pain Stop: 09/29/20 19:49 Nitroglycerin (Nitroglycerin Sl 0.4 Mg/Tab Tab) 0.4 mg SL PRN PRN PRN Reason: Chest Pain Stop: 10/15/20 19:54 Ondansetron HCl (Ondansetron Inj 2 Mg/Ml 2 Ml Vial) 4 mg IV Q6H PRN PRN Reason: Nausea And Vomiting Stop: 10/15/20 19:49 PG Care Time/CCT Total # of Minutes Spent Total Time Spent with Patient: Total time spent is greater than 50% in coordination of care (as documented) at patient's floor/unit and/or counseling patient: Coding Level of Care Code 09065 Inpt Consult Level [address] elevation [place] (STEMI) I21.19 Involved coronary artery: other inferior wall coronary artery Hypertension I10 Hypertension type: essential hypertension Primary hypothyroidism E03.9 T-cell lymphoma C85.90 Type 2 diabetes mellitus, with long-term current use of insulin E11.59; Z79.4 Diabetes mellitus complication detail: with other circulatory complications Diabetes mellitus complication status: with circulatory complication Malignant neoplasm of prostate C61 CAD (coronary artery disease) I25.10 Associated angina: without angina Coronary Disease-Associated Artery/Lesion type: [place] artery [place] vs. transplanted heart: [place] heart Moderate to severe aortic stenosis I35.0 Hypercholesterolemia E78.00 GERD without esophagitis K21.9 DVT prophylaxis Z29.9 (1) CAD (coronary artery disease) Associated angina: without angina Coronary Disease-Associated Artery/Lesion type: [place] artery [place] vs. transplanted heart: [place] heart Qualified Code(s): I25.10 - Atherosclerotic heart disease of [place] coronary artery without angina pectoris (2) ST elevation [place] (STEMI) Involved coronary artery: other inferior wall coronary artery Qualified Code(s): I21.19 - ST elevation (STEMI) myocardial infarction involving other coronary artery of inferior wall (3) Type 2 diabetes mellitus, with long-term current use of insulin Diabetes mellitus complication detail: with other circulatory complications Diabetes mellitus complication status: with circulatory complication Qualified Code(s): E11.59 - Type 2 diabetes mellitus with other circulatory complications; Z79.4 - jail (current) use of insulin (4) Hypertension Hypertension type: essential hypertension Qualified Code(s): I10 - Essential (primary) hypertension
[2020-09-16] MEDS: ATORVASTATIN 40 MG TAB PO SCH (08:46)
[2020-09-16] MEDS: CLOPIDOGREL BISULFATE 75 MG TAB PO SCH (08:46)
[2020-09-16] MEDS: ASPIRIN 81 MG ECTAB PO SCH (08:46)
[2020-09-16] MEDS: LATANOPROST 0.005% OP SOLN 2.5 ML BTL OP SCH (08:50)
[2020-09-16] MEDS ORDERED: INSULIN HUMAN NPH SC SCH (09:00)
[2020-09-16] MEDS: HEPARIN SODIUM/DEXTROSE 25,000 UNITS/500 ML BAG IV SCH (10:50)
--- NOTE | 2020-09-16 12:42 | Cardiology Progress Note ---
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 OM/PLB partially fill via left to left collaterals -- 95% distal LAD after ANURADHA anastomosis 2. Moderate to severe 3. Mild LV dysfunction. Inferolateral wall severe hypokinesis. 4. Moderate mitral regurgitation. 5. Type 2 DM 6. MIKE 7. Hypertension Chest pain free. Troponin peaking. Hemodynamically and electrically stable Mild LV dysfunction with inferolateral wma on echo. No signs of heart failure on exam. Post procedure labs stable. No access site complications. -- Continue heparin infusion over weekend -- Continue DAPT with Aspirin, Clopidogrel -- Increase metoprolol to 50mg BID -- Restart losartan -- Continue statin -- Will decide about possible intervention to distal LAD stenosis on Friday. -- Appreciate hospital medicine/glycemic management input. Admission and Anticipated Discharge Date Admission Date: September 15, 2020 Subjective Feeling well this morning. No chest pain. No dyspnea. Some trouble sleeping overnight due to coughing. Cough resolved. Telemetry reviewed -- no events. 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 pulse intact -- No edema Results & Data ([facility]) Vital Signs (Past 12 Hours) Vital Signs Temp Pulse Resp BP Pulse Ox 09/16/20 11:53 98.2 F 88 18 123/70 93 09/16/20 07:31 98.1 F 72 19 114/70 95 09/16/20 04:00 97.9 F 75 18 111/72 97 PG Care Time/CCT Total # of Minutes Spent Total Time Spent with Patient: Total time spent is greater than 50% in coordination of care (as documented) at patient's floor/unit and/or counseling patient: Coding Level of Care Code 47440 Subseq Hosp Care Lvl 3 Diagnoses Acute NC I21.9
--- NOTE | 2020-09-16 13:51 | XCELERA ---
[id number]
--- NOTE | 2020-09-16 14:06 | Pharmacy Report ---
Pharmacy Glycemic Short Note 2 - Date of Service September 16, 2020 - Glycemic Short BSG Results (Last 24 hours): 09/15/20 09/15/20 09/15/20 17:59 18:00 19:38 Glucose 359 H* POC Glucose 375 H* 329 H* 09/15/20 09/15/20 09/16/20 19:40 21:29 00:31 Glucose POC Glucose 311 H* 292 H 243 H 09/16/20 09/16/20 09/16/20 01:39 03:57 07:29 Glucose 228 H POC Glucose 154 H 148 H 09/16/20 11:30 Glucose POC Glucose 187 H OUTPATIENT ANTIDIABETIC REGIMEN: * NPH 70 units qAM, 66 units qPM * Regular insulin 40 units qAM, 36 units qPM * A1c = 7.7% (05/18/20) ASSESSMENT: * Law is a 84 yo T2DM s/p [place] * Pharmacy was consulted 09/15 PM for severe hyperglycemia * Patient takes large doses of insulin at home (total 212 units/day). He reported to staff that during previous admissions he required much less insulin than he takes at home. * Fasting BSG of 148 mg/dL is near goal. He received 40 units of NPH last evening, which is ~40% reduction compared to home dose. Will continue 40% reduction this AM and then change to dose per scale. * Post prandial BSGs are improving. Will slightly tighten carb coverage. PLAN FOR INPATIENT GLYCEMIC CONTROL: * Basal insulin * NPH 45 units SQ this AM, then per scale BID with meals * 40 units for BSG less than 140 * 45 units for BSG 140 - 200 * 50 units for BSG greater than 200 * Bolus insulin * NovoLog per scale ACHS or Q6hrs while NPO * Goal Range: Low 120 mg/dL - High 160 mg/dL * Correction Factor: 12 mg/dL/unit * Nutritional / Prandial insulin per carb ratio of 1 unit per 3 grams CHO consumed thank you
[2020-09-16] MEDS: METOPROLOL TARTRATE 50 MG TAB PO SCH ×2 (14:21→21:13)
[2020-09-16] MEDS: INSULIN HUMAN NPH SC SCH (17:05)
[2020-09-17] MEDS: HEPARIN SODIUM/DEXTROSE 25,000 UNITS/500 ML BAG IV SCH ×3 (02:50→17:11)
[2020-09-17 04:28] LABS: Basophils # (auto) 0.02 K/uL (0-0.2); Basophils % (auto) 0.2 %; Eosinophils # (auto) 0.05 K/uL (0-0.5); Eosinophils % (auto) 0.5 %; Hemoglobin 13.3 g/dL (14.0-18.0); Immature Granulocytes # (auto) 0.03 K/uL (0.00-0.02); Immature Granulocytes % (auto) 0.3 %; Lymphocytes # (auto) 1.64 K/uL (1.2-3.4); Lymphocytes % (auto) 15.6 %; Mean Corpuscular Hemoglobin 30.2 pg (25-34); Mean Corpuscular Hgb Conc 34.1 g/dL (32-36); Mean Corpuscular Volume 88.4 fL (80-100); Monocytes # (auto) 1.43 K/uL (0.11-0.59); Monocytes % (auto) 13.6 %; Neutrophils # (auto) 7.37 K/uL (1.4-6.5); Neutrophils % (auto) 69.8 %; Platelet Count 219 K/uL (130-400); RDW Standard Deviation 45.8 fL (36.4-46.3); Red Blood Count 4.41 M/uL (4.7-6.1); White Blood Count 10.54 K/uL (4.8-10.8)
[2020-09-17 04:38] LABS: INR 1.1 (0.9-1.1); Prothrombin Time 11.9 Seconds (9.0-12.0)
[2020-09-17 04:46] LABS: BUN Creatinine Ratio 22.4 (10-20); Calcium 8.1 mg/dl (8.5-10.1); Creatinine Clr Calc Pharmacy 68.8 ml/min; Est GFR (African American) 81.3; Est GFR (Non-African American) 70.1; Magnesium 2.3 mg/dl (1.8-2.4); Phosphorus 2.6 mg/dl (2.5-4.9); Potassium 3.7 mmol/L (3.5-5.1)
[2020-09-17] MEDS: METOPROLOL TARTRATE 50 MG TAB PO SCH ×2 (06:01→13:20)
[2020-09-17] MEDS: LEVOTHYROXINE SODIUM 100 MCG TABLET PO SCH (06:18)
--- NOTE | 2020-09-17 06:22 | Electrocardiogram Report ---
Test Reason : Blood Pressure : / mmHG Vent. Rate : 091 BPM Atrial Rate : 091 BPM P-R Int : 208 ms QRS Dur : 102 ms QT Int : 362 ms P-R-T Axes : 043 041 166 degrees QTc Int : 445 ms Normal sinus rhythm ST elevation consider inferior injury or acute infarct ACUTE OH / STEMI Consider right ventricular involvement in acute inferior infarct Abnormal ECG When compared with ECG of 30-DEC-2013 15:47, Acute inferior infarction is now Present Confirmed by Abdirizak Parkinson ([id number]) on 09/17/2020 6:22:11 AM Referred By: REFERRED SELF Confirmed By:Abdirizak Parkinson
[2020-09-17 06:31] LABS: Partial Thromboplastin Ratio 3.1
--- NOTE | 2020-09-17 06:41 | Electrocardiogram Report ---
Test Reason : Blood Pressure : / mmHG Vent. Rate : 078 BPM Atrial Rate : 078 BPM P-R Int : 186 ms QRS Dur : 086 ms QT Int : 396 ms P-R-T Axes : 062 062 172 degrees QTc Int : 451 ms Normal sinus rhythm Possible Left atrial enlargement Abnormal ECG When compared with ECG of 15-SEP-2020 17:49, (unconfirmed) Inferior injury pattern is no longer Present Confirmed by Abdirizak Parkinson ([id number] on 09/17/2020 6:40:56 AM Referred By: REFERRED SELF Confirmed By:Abdirizak Parkinson
[2020-09-17 06:52] LABS: Partial Thromboplastin Time 85.9 Seconds (21.0-31.0)
[2020-09-17] MEDS: CARBOHYDRATES FOR HYPOGLYCEMIA PO PRN ×2 (07:41→07:56)
[2020-09-17] MEDS ORDERED: INSULIN ASPART 100 UNITS/ML 3 ML PEN SC SCH (08:00)
--- NOTE | 2020-09-17 08:35 | Hospitalist Progress Note ---
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 Quijano with [facility] as outpatient Resume phototherapy after discharge (4) GERD without esophagitis: stable (5) Hypercholesterolemia: lipitor (6) Malignant neoplasm of prostate: s/p prostatectomy - checked post-void residual -- post void was negligible 09-17 checking UA with recent symptoms of straining and difficulty starting stream -- UA was normal patient now states all symptoms have resolved. follow up as outpatient with urology as needed (7) ST elevation [place] (STEMI): heparin drip aspirin and plavix beta johnie echocardiogram EF 40-45%, grade 2 diastolic dysfunction, moderate to severe aortic stenosis, RVSP 45-50 Dr. Holt cardiology is primary (8) CAD (coronary artery disease): aspirin, plavix, lipitor, toprol 50mg q8h plans per Dr. Holt (9) Hypertension: -14 SBP range 111-123 Dr. Holt increased metoprolol tartrate from 25mg q8h to 50mg q8h 11-15 SBP 99 - [address] Holt (10) Moderate to severe aortic stenosis: plans per Dr. Holt (11) DVT prophylaxis: heparin drip diabetic diet full code Admission and Anticipated Discharge Date Admission Date: September 15, 2020 Subjective Hypoglycemia this AM -- BG 60. Asymptomatic -- not shaky or jittery, not sweaty. Insulin held this morning. Patient eating well. Denies shortness of breath, no chest pain. Briefly discussed patient's echocardiogram which was significant for EF 45% -- discussed mostly preserved "squeezing" function. Told him that I would defer to Dr. Holt for further discussion of echo. No hemoptysis or epistasix. No melena, no hematochezia, no hematuria, no bruising or bleeding in the setting of heparin drip. Urinary hesitancy has resolved, no dysuria, no retention. Review of Systems Constitutional: no fever, no chills, no fatigue, no weakness, no anorexia, no weight loss and no weight gain Ear, Nose, Mouth, Throat: no nasal congestion, no sore throat and no dysphagia Respiratory: no cough and no dyspnea Cardiovascular: no chest pain, no dyspnea on exertion, no orthopnea and no palpitations Gastrointestinal: no abdominal pain, no nausea, no vomiting, no hematemesis, no dysphagia, no constipation, no diarrhea/loose stools, no blood in stools and no melena Musculoskeletal: no back pain, no joint pain, no myalgia and no muscle weakness Integumentary: no rash, no lesions, no skin ulcer, no erythema, no dry skin and no pruritus Neurologic: no falls, no localized weakness, no generalized weakness, no numbness, no paresthesia, no tremor(s) and no headache(s) Psychiatric: no depression, no suicidal ideation, no homicidal ideation and no anxiety Endocrine: no cold intolerance and no heat intolerance Hematologic / Lymphatic: no easy bleeding and no easy bruising Physical Exam Constitutional: well developed and well nourished; no acute distress Eyes: PERRL, conjunctivae normal, anicteric sclerae ENMT: Mouth: oral mucous membranes not dry Respiratory: normal respiratory effort; no respiratory distress and no labored breathing Auscultation: lungs clear to auscultation bilaterally; no crackles, no rales, no rhonchi and no wheezes Cardiovascular: Rate/Rhythm: regular rate and regular rhythm Heart Sounds: no murmur and no cardiac rub Vessels: normal peripheral pulses and radial pulses present; no JVD Extremities: no edema Gastrointestinal (Abdomen): Inspection/Auscultation: abdomen normal to inspection and normal bowel sounds; abdomen not distended Percussion/Palpation: abdomen soft; abdomen nontender, no guarding, abdomen not rigid and no hepatosplenomegaly Musculoskeletal: Head/Neck/Chest: normocephalic and head atraumatic Spine: no cervical spinal tenderness, no cervical muscular tenderness, no thoracic spinal tenderness and no lumbar spinal tenderness Skin: no rashes, warm and dry Neurologic: CN's II-XI intact bilaterally and moves all extremities Motor/Sensory: no tremor and no sensory deficit Psychiatric: Orientation: alert, oriented to person, oriented to place and oriented to time Apperance: appropriately groomed; not disheveled Affect: euthymic affect; no anxious affect and no tearful affect Results & Data Results & Data ([facility]) Vital Signs (Past 12 Hours) Vital Signs Temp Pulse Resp BP Pulse Ox 09/17/20 07:52 36.9 C 65 18 112/72 98 09/17/20 03:31 37.2 C 74 18 115/71 94 09/16/20 23:25 37.8 C H 78 20 99/62 L 93 09/16/20 20:43 37.3 C 81 20 115/68 92 Laboratory Results Abnormal lab results 09/16/20 09/16/20 09/16/20 Range/Units 08:05 11:30 16:23 RBC (4.7-6.1) M/uL Hgb (14.0-18.0) g/dL Hct (42-52) % Neut # (Auto) (1.4-6.5) K/uL Towner # (Auto) (0.11-0.59) K/uL Immature Gran # (Auto) (0.00-0.02) K/uL APTT (21.0-31.0) Seconds Chloride (98-107) mmol/L BUN (7-18) mg/dl BUN/Creatinine Ratio (10-20) Glucose (70-99) mg/dl POC Glucose 187 H 166 H (70-99) mg/dl Calcium (8.5-10.1) mg/dl Troponin I 76.700 H* (0-0.045) ng/ml 09/16/20 09/17/20 09/17/20 Range/Units 20:38 04:16 04:16 RBC 4.41 L (4.7-6.1) M/uL Hgb 13.3 L (14.0-18.0) g/dL Hct 39.0 L (42-52) % Neut # (Auto) 7.37 H (1.4-6.5) K/uL Towner # (Auto) 1.43 H (0.11-0.59) K/uL Immature Gran # (Auto) 0.03 H (0.00-0.02) K/uL APTT (21.0-31.0) Seconds Chloride 111 H (98-107) mmol/L BUN 22 H (7-18) mg/dl BUN/Creatinine Ratio 22.4 H (10-20) Glucose 54 L (70-99) mg/dl POC Glucose 101 H (70-99) mg/dl Calcium 8.1 L (8.5-10.1) mg/dl Troponin I (0-0.045) ng/ml 09/17/20 09/17/20 09/17/20 Range/Units 05:52 07:34 07:35 RBC (4.7-6.1) M/uL Hgb (14.0-18.0) g/dL Hct (42-52) % Neut # (Auto) (1.4-6.5) K/uL Towner # (Auto) (0.11-0.59) K/uL Immature Gran # (Auto) (0.00-0.02) K/uL APTT 85.9 H* (21.0-31.0) Seconds Chloride (98-107) mmol/L BUN (7-18) mg/dl BUN/Creatinine Ratio (10-20) Glucose (70-99) mg/dl POC Glucose 60 L* 60 L* (70-99) mg/dl Calcium (8.5-10.1) mg/dl Troponin I (0-0.045) ng/ml 09/17/20 Range/Units 08:00 RBC (4.7-6.1) M/uL Hgb (14.0-18.0) g/dL Hct (42-52) % Neut # (Auto) (1.4-6.5) K/uL Towner # (Auto) (0.11-0.59) K/uL Immature Gran # (Auto) (0.00-0.02) K/uL APTT (21.0-31.0) Seconds Chloride (98-107) mmol/L BUN (7-18) mg/dl BUN/Creatinine Ratio (10-20) Glucose (70-99) mg/dl POC Glucose 67 L* (70-99) mg/dl Calcium (8.5-10.1) mg/dl Troponin I (0-0.045) ng/ml Medications Administered Current Inpatient Medications Acetaminophen (Acetaminophen 325 Mg Tab) 650 mg PO Q4H PRN PRN Reason: MILD Pain (Scale 1,2,3) Stop: 10/15/20 19:49 Last Admin: 09/16/20 23:30 Dose: 650 mg Documented by: Aspirin (Aspirin 81 Mg Ectab) 81 mg PO QAM [facility] Stop: 10/16/20 08:59 Last Admin: 09/16/20 08:46 Dose: 81 mg Documented by: Atorvastatin Calcium (Atorvastatin 40 Mg Tab) 80 mg PO QAM [facility] Stop: 10/16/20 08:59 Last Admin: 09/16/20 08:46 Dose: 80 mg Documented by: Clopidogrel Bisulfate (Clopidogrel Bisulfate 75 Mg Tab) [facility] Stop: 10/16/20 08:59 Last Admin: 09/16/20 08:46 Dose: 75 mg Documented by: Dextrose (Dextrose 50% 50 Ml Syringe) 25 - 50 ml IV UD PRN; Protocol PRN Reason: Hypoglycemia Protocol Stop: 10/15/20 20:01 Glucagon (Glucagon For Inj 1 Mg Vial) 1 mg SQ UD PRN; Protocol PRN Reason: Hypoglycemia Protocol Stop: 10/15/20 20:01 Glucose (Glucose 10 Tabs/Tube) 4 - 8 tabs PO UD PRN; Protocol PRN Reason: Hypoglycemia Protocol Stop: 10/15/20 20:01 Glucose (Glucose 40% Gel 15 Gm Tube) 15 - 30 gm PO UD PRN; Protocol PRN Reason: Hypoglycemia Protocol Stop: 10/15/20 20:01 Heparin Sodium/Dextrose (Heparin Sodium/Dextrose) 25,000 units in 500 mls @ 0 mls/hr IV .Q0M [facility]; Protocol Stop: 10/15/20 19:59 Last Titration: 09/17/20 06:56 Dose: 0 units/hr, 0 mls/hr Documented by: Insulin Aspart (Insulin Aspart 100 Units/Ml 3 Ml Pen) 0 units SC ACHS [facility] Stop: 10/15/20 20:59 Last Admin: 09/16/20 21:03 Dose: Not Given Documented by: Insulin Human NPH (Insulin Human Nph) 0 units SC BIDM [facility]; Protocol Stop: 10/16/20 16:59 Last Admin: 09/16/20 17:05 Dose: 45 units Documented by: Latanoprost (Latanoprost 0.005% Op Soln 2.5 Ml Btl) 1 drops OP DAILY [facility] Stop: 10/16/20 08:59 Last Admin: 09/16/20 08:50 Dose: 1 drops Documented by: Levothyroxine Sodium (Levothyroxine Sodium 100 Mcg Tablet) [facility] Stop: 10/16/20 06:29 Last Admin: 09/17/20 06:18 Dose: 100 mcg Documented by: Losartan Potassium (Losartan Potassium 25 Mg Tab) 25 mg PO QAM [facility] Stop: 10/17/20 08:59 Metoprolol Tartrate (Metoprolol Tartrate 50 Mg Tab) 50 mg PO Q8H [facility] Stop: 10/16/20 13:59 Last Admin: 09/17/20 06:01 Dose: 50 mg Documented by: Miscellaneous (Carbohydrates For Hypoglycemia ) 15 - 30 gm PO UD PRN PRN Reason: Hypoglycemia Protocol Stop: 10/15/20 20:01 Last Admin: 09/17/20 07:56 Dose: 15 gm Documented by: Miscellaneous Information (Pharmacy Glycemic Mgmt Consult) 1 ea N/A UD PRN; Protocol PRN Reason: Consult Stop: 10/15/20 20:08 Morphine Sulfate (Morphine Sulfate 2 Mg/Ml Carp) 2 mg IV Q2H PRN PRN Reason: MODERATE to SEVERE Pain Stop: 09/29/20 19:49 Nitroglycerin (Nitroglycerin Sl 0.4 Mg/Tab Tab) 0.4 mg SL PRN PRN PRN Reason: Chest Pain Stop: 10/15/20 19:54 Ondansetron HCl (Ondansetron Inj 2 Mg/Ml 2 Ml Vial) 4 mg IV Q6H PRN PRN Reason: Nausea And Vomiting Stop: 10/15/20 19:49 PG Care Time/CCT Total # of Minutes Spent Total Time Spent with Patient: Total time spent is greater than 50% in coordination of care (as documented) at patient's floor/unit and/or counseling patient: Coding Level of Care Code 89437 Subseq Hosp Care Lvl 3 Diagnoses Type 2 diabetes mellitus, with long-term current use of insulin E11.59; Z79.4 Diabetes mellitus complication detail: with other circulatory complications Diabetes mellitus complication status: with circulatory complication Primary hypothyroidism E03.9 T-cell lymphoma C85.90 GERD without esophagitis K21.9 Hypercholesterolemia E78.00 Malignant neoplasm of prostate C61 ST elevation [place] (STEMI) I21.19 Involved coronary artery: other inferior wall coronary artery CAD (coronary artery disease) I25.10 Associated angina: without angina Coronary Disease-Associated Artery/Lesion type: [place] artery [place] vs. transplanted heart: [place] heart Hypertension I10 Hypertension type: essential hypertension Moderate to severe aortic stenosis I35.0 DVT prophylaxis Z29.9 (1) CAD (coronary artery disease) Associated angina: without angina Coronary Disease-Associated Artery/Lesion type: [place] artery [place] vs. transplanted heart: [place] heart Qualified Code(s): I25.10 - Atherosclerotic heart disease of [place] coronary artery without angina pectoris (2) ST elevation [place] (STEMI) Involved coronary artery: other inferior wall coronary artery Qualified Code(s): I21.19 - ST elevation (STEMI) myocardial infarction involving other coronary artery of inferior wall (3) Type 2 diabetes mellitus, with long-term current use of insulin Diabetes mellitus complication detail: with other circulatory complications Diabetes mellitus complication status: with circulatory complication Qualified Code(s): E11.59 - Type 2 diabetes mellitus with other circulatory complications; Z79.4 - section cutter (current) use of insulin (4) Hypertension Hypertension type: essential hypertension Qualified Code(s): I10 - Essential (primary) hypertension
[2020-09-17] MEDS: LATANOPROST 0.005% OP SOLN 2.5 ML BTL OP SCH (09:19)
[2020-09-17] MEDS: ATORVASTATIN 40 MG TAB PO SCH (10:14)
[2020-09-17] MEDS: LOSARTAN POTASSIUM 25 MG TAB PO SCH (10:14)
[2020-09-17] MEDS: CLOPIDOGREL BISULFATE 75 MG TAB PO SCH (10:15)
[2020-09-17] MEDS: ASPIRIN 81 MG ECTAB PO SCH (10:36)
[2020-09-17 12:23] LABS: Appearance Urine Clear (Clear); Bilirubin Urine Negative (Negative); Blood Urine Negative (Negative); Color Urine Yellow; Glucose Urine UA Negative (Negative); Ketones Urine Negative (Negative); Leukocyte Esterase Urine Negative (Negative); Nitrite Urine Negative (Negative); Protein Urine Negative (Negative); Specific Gravity Urine 1.014 (1.000-1.030); Urobilinogen Urine Negative (Negative)
[2020-09-17] MEDS: INSULIN ASPART 100 UNITS/ML 3 ML PEN SC SCH ×3 (13:18→21:25)
--- NOTE | 2020-09-17 14:12 | Pharmacy Report ---
Pharmacy Glycemic Short Note 2 - Date of Service September 17, 2020 - Glycemic Short BSG Results (Last 24 hours): 09/16/20 09/16/20 09/17/20 16:23 20:38 04:16 Glucose 54 L POC Glucose 166 H 101 H 09/17/20 09/17/20 09/17/20 07:34 07:35 08:00 Glucose POC Glucose 60 L* 60 L* 67 L* 09/17/20 09/17/20 09/17/20 08:17 10:08 11:29 Glucose POC Glucose 113 H 166 H 166 H OUTPATIENT ANTIDIABETIC REGIMEN: * NPH 70 units qAM, 66 units qPM * Regular insulin 40 units qAM, 36 units qPM * A1c = 7.7% (05/18/20) ASSESSMENT: 09/17: * Patient received 137 units of insulin yesterday with acceptable BSG control: * 90 units of basal * 47 units of bolus * BSGs: 148, 187, 166, 101 mg/dL * Patient had an episode of asymptomatic hypoglycemia this AM (BSG 60 mg/dL) despite 35% decrease in home doses of NPH. Patient was given juice with recheck of 68 mg/dL. AM dose of Novolog and NPH were held. BSG recovery noted at lunchtime, therefore NPH will be resumed at dinner at reduced doses. * Post prandial BSGs were trending downward yesterday. Unclear if this was due to basal insulin or short acting insulin - likely a combination of the two. Novolog parameters have been loosened to avoid further hypo. 09/16: * Law is a 84 yo T2DM s/p SC * Pharmacy was consulted 09/15 PM for severe hyperglycemia * Patient takes large doses of insulin at home (total 212 units/day). He reported to staff that during previous admissions he required much less insulin than he takes at home. * Fasting BSG of 148 mg/dL is near goal. He received 40 units of NPH last evening, which is ~40% reduction compared to home dose. Will continue 40% reduction this AM and then change to dose per scale. * Post prandial BSGs are improving. Will slightly tighten carb coverage. PLAN FOR INPATIENT GLYCEMIC CONTROL: * Basal insulin - decrease * NPH held in AM * NPH per scale BID with meals (starting with dinner): * 10 units for BSG less than 140 * 20 units for BSG 140 - 200 * 25 units for BSG greater than 200 * Bolus insulin * NovoLog per scale ACHS or Q6hrs while NPO * Goal Range: Low 120 mg/dL - High 160 mg/dL * Correction Factor: 20 mg/dL/unit * Nutritional / Prandial insulin per carb ratio of 1 unit per 7 grams CHO consumed thank you
[2020-09-17] MEDS ORDERED: FUROSEMIDE 40 MG in SYRINGE 0 ML IV ONE (15:15)
[2020-09-17 15:28] LABS: Partial Thromboplastin Ratio 1.7
[2020-09-17 15:29] LABS: Partial Thromboplastin Time 48.3 Seconds (21.0-31.0)
[2020-09-17] MEDS: INSULIN HUMAN NPH SC SCH (17:10)
[2020-09-17] MEDS: METOPROLOL TARTRATE 100 MG TAB PO SCH (21:26)
--- NOTE | 2020-09-17 22:32 | Cardiology Progress Note ---
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 OM/PLB partially fill via left to left collaterals -- 95% distal LAD after ANURADHA anastomosis 2. Moderate to severe 3. Mild LV dysfunction. Inferolateral wall severe hypokinesis. 4. Moderate mitral regurgitation. 5. Type 2 DM 6. MIKE 7. Hypertension Chest pain free. Troponin down. Hemodynamically and electrically stable. More dyspneic today with exertion. Congestion on exam. Renal function stable. Hb down. -- Repeat chest xray. 40 IV lasix now. Continue daily weights, strict I/Os. -- Continue heparin infusion over weekend -- Continue DAPT with Aspirin, Clopidogrel -- Increase metoprolol to 100 mg BID. Continue losartan -- Continue statin -- Will decide about possible intervention to distal LAD stenosis on Friday. -- Appreciate hospital medicine/glycemic management input. Admission and Anticipated Discharge Date Admission Date: September 15, 2020 Subjective Denies chest pain. More dyspneic today with any movement. No other new concerns. Telemetry reviewed -- no events. Review of Systems Review of Systems: All systems reviewed & are unremarkable except as noted in HPI & below Physical Exam Physical Exam: General: visually dyspneic with sitting up HENT: Oropharynx clear mucous membranes moist Lungs: few crackles at bases bilaterally Cardiac: Regular rate and rhythm, 2/6 BLAZE. +JVD ~9 Abdomen: Soft, nontender Neuro: Nonfocal Psych: Alert orient x3, normal affect and mood Extremities/Vascular: -- 2+ radial bilaterally -- RT [employer] - no ecchymosis/hematoma. pulse intact -- No edema Results & Data ([facility]) Vital Signs (Past 12 Hours) Vital Signs Temp Pulse Pulse Pulse Resp BP Pulse Ox 09/17/20 20:45 98.4 F 89 20 95 09/17/20 16:43 98.4 F 92 H 16 150/85 H 97 09/17/20 14:40 85 09/17/20 11:38 98.1 F 86 18 144/74 H 98 PG Care Time/CCT Total # of Minutes Spent Total Time Spent with Patient: Total time spent is greater than 50% in coordination of care (as documented) at patient's floor/unit and/or counseling patient: Coding Level of Care Code 24406 Subseq Hosp Care Lvl 3 Diagnoses Acute [place] I21.9
[2020-09-18 04:54] LABS: Hematocrit (blood only) 37.4 % (42-52); Hemoglobin 12.9 g/dL (14.0-18.0); Mean Corpuscular Hemoglobin 30.3 pg (25-34); Mean Corpuscular Hgb Conc 34.5 g/dL (32-36); Mean Corpuscular Volume 87.8 fL (80-100); Mean Platelet Volume 10.1 fL (7.4-10.4); Platelet Count 238 K/uL (130-400); Red Blood Count 4.26 M/uL (4.7-6.1); White Blood Count 9.08 K/uL (4.8-10.8)
[2020-09-18 05:13] LABS: Partial Thromboplastin Ratio 2.3
[2020-09-18 05:18] LABS: Partial Thromboplastin Time 63.2 Seconds (21.0-31.0)
[2020-09-18 05:33] LABS: BUN Creatinine Ratio 20.5 (10-20); Creatinine Clr Calc Pharmacy 64.9 ml/min; Est GFR (African American) 75.7; Est GFR (Non-African American) 65.3; Magnesium 2.3 mg/dl (1.8-2.4); Phosphorus 2.5 mg/dl (2.5-4.9); Potassium 3.8 mmol/L (3.5-5.1)
[2020-09-18] MEDS: LEVOTHYROXINE SODIUM 100 MCG TABLET PO SCH (05:36)
--- NOTE | 2020-09-18 08:09 | XRay Report ---
XR chest 1V portable HISTORY: 84 years-old Male dyspnea acute shortness of breath COMPARISON: Chest radiograph 09/15/2020 TECHNIQUE: Portable AP view of the chest FINDINGS: Cardiac silhouette is moderately enlarged. Prior median sternotomy. There is moderately improved aera tion of the lungs with only minimal persistent bibasilar densities present. Eventration of the right hemidiaphragm. No pneumothorax, large pleural effusion or overt pulmonary edema. Unchanged mild blunt ing of the costophrenic angles. Degenerative changes of the shoulders and spine. IMPRESSION: 1. Cardiomegaly with pulmonary vascular congestion. 2. Mildly improved aeration of the lungs with decreased reticular nodular opacities. ACT 112: Negative or not required by law. The above report was generated using voice recognition software. It may contain grammatical, syntax o r spelling errors. Electronically signed by: Chad Krause M.D. 09/18/2020 8:08 AM
[2020-09-18] MEDS: INSULIN HUMAN NPH SC SCH ×2 (08:12→18:04)
[2020-09-18] MEDS: METOPROLOL TARTRATE 100 MG TAB PO SCH ×2 (08:14→20:52)
[2020-09-18] MEDS: LATANOPROST 0.005% OP SOLN 2.5 ML BTL OP SCH (08:15)
[2020-09-18] MEDS: INSULIN ASPART 100 UNITS/ML 3 ML PEN SC SCH ×4 (08:16→20:53)
[2020-09-18] MEDS: ASPIRIN 81 MG ECTAB PO SCH (08:30)
[2020-09-18] MEDS: ATORVASTATIN 40 MG TAB PO SCH (08:31)
[2020-09-18] MEDS: LOSARTAN POTASSIUM 25 MG TAB PO SCH (08:31)
[2020-09-18] MEDS: CLOPIDOGREL BISULFATE 75 MG TAB PO SCH (08:31)
--- NOTE | 2020-09-18 10:17 | Cardiology Progress Note ---
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 OM/PLB partially fill via left to left collaterals -- 95% distal LAD after ANURADHA anastomosis 2. Moderate to severe 3. Mild LV dysfunction. Inferolateral wall severe hypokinesis. 4. Moderate mitral regurgitation. 5. Type 2 DM 6. MIKE 7. Hypertension 8. Nonsustained VT 9. Anemia Dyspnea and congestion on exam improved following the Lasix yesterday. Weight down more than 2 kg. Remains chest pain-free. Hemodynamically stable. 1 episode of nonsustained VT overnight Renal function stable. Hb down. --Tentatively plan on PCI to mid LAD through ANURADHA graft later today. Keep n.p.o. --Can stop heparin infusion now -- Continue DAPT with Aspirin, Clopidogrel --Continue current metoprolol, losartan and statin -- Appreciate hospital medicine/glycemic management input. Admission and Anticipated Discharge Date Admission Date: September 15, 2020 Subjective Dyspnea improved following diuresis yesterday, negative more than 1 L. Breathing near baseline. Has had no chest pain since admission. No other new concerns. Telemetry reviewed --one episode of nonsustained VT overnight Review of Systems Review of Systems: All systems reviewed & are unremarkable except as noted in HPI & below Physical Exam Physical Exam: General: Breathing comfortably HENT: Oropharynx clear mucous membranes moist Lungs: Lungs clear Cardiac: Regular rate and rhythm, 2/6 BLAZE. No JVD Abdomen: Soft, nontender Neuro: Nonfocal Psych: Alert orient x3, normal affect and mood Extremities/Vascular: -- 2+ radial bilaterally -- RT [employer]CH[employer] - no ecchymosis/hematoma. pulse intact -- No edema Results & Data ([facility]) Vital Signs (Past 12 Hours) Vital Signs Temp Pulse Pulse Resp BP Pulse Ox 09/18/20 07:17 97.7 F 71 18 114/69 97 09/18/20 04:04 98.8 F 79 18 111/69 96 09/17/20 23:22 98.6 F 70 19 106/64 96 PG Care Time/CCT Total # of Minutes Spent Total Time Spent with Patient: Total time spent is greater than 50% in coordination of care (as documented) at patient's floor/unit and/or counseling patient: Coding Level of Care Code 63430 Subseq Hosp Care Lvl 3 Diagnoses Acute [place] I21.9
--- NOTE | 2020-09-18 10:49 | Medical Student Progress Note ---
Date of Service September 18, 2020 Assessment & Plan (1) Ischemic cardiomyopathy: Mr Ca is an 84 yo male with a cardiovascular pmh sig for CAD s/p 2 vessel CABG, SA, HTN, HLD. He was admitted 3 days ago due to concern of acute CT. EKG showed ST elevations that seemed to have resolved in f/u EKG. Cardiomegaly and vascular congestion on CXR. Echo showed mild LV dysfunction and inferolateral wall severe hypokinesis is addition to moderate to severe on echo along with echocardiogram EF 40- 45%, grade 2 diastolic dysfunction.. Cardiomyopathy seems to be compensated. No clinical signs of congestion. Dyspnea and weight ( - <2 kg) improved on Lasix. Initial cardiac cath evaluation which revealed occlusion of proximal circumflex. Cardiology decided he was not amenable to PCI and was medically treated and monitored at telemetry unit over the weekend. He was seen by cardiology today. It was decided that he will continue medical treatment. Plan: agree with cardiology plan: continue to treat medically: Continue dual antiplatelet therapy with aspirin and clopidogrel continue statin continue metoprolol and losartan Stop heparin infusion monitor for worsening sxs that might call for a PCI (2) Moderate to severe aortic stenosis: see above (3) Type 2 diabetes mellitus, with long-term current use of insulin: Patient has been on insulin therapy for DM2 for many number of years. During his hospital stay he had 1 hypoglycemia episode in which his glucose levels dropped to 55. His glocus is 155 today. He feels better. No further hypoglycemia sxs A1c 7.9 Plan: glycemic management consult placed continue Humulin R Regular as baseline therapy, continue NPH before meals after measuring blood sugars repeat A1c in 3 months take blood sugars at home regularly f/u w/ pcp Diabetes mellitus complication detail: with other circulatory complications Diabetes mellitus complication status: with circulatory complication Qualified Code(s): E11.59 - Type 2 diabetes mellitus with other circulatory complications; Z79.4 - USP (current) use of insulin Admission and Anticipated Discharge Date Admission Date: September 15, 2020 Subjective Mr Ca is an 84 yo patient who is here for concerns of acute CT. He reports no overnight events. Felling better overall. He was seen by cardiology today and was informed that he will be undergoing PCI this afternoon, however, the cardiology team later decided that treating medically with monitoring would be the best option. Admits to some coughing that's normal for him. Denies chest pain, SOB, STOVALL, orthopnea, edema, calf pain increased urination, water intake, shaking, lightheadedness, syncope, pre-syncope, ORTIZ, night sweats, chills. Review of Systems Constitutional: no fever, no chills, no sweats and no body aches Respiratory: + cough; no chest congestion, no dyspnea and no dyspnea on exertion Cardiovascular: no chest pain, no chest pain at rest, no dyspnea, no dyspnea at rest, no orthopnea, no syncope, no edema and no calf pain Gastrointestinal: no abdominal pain, no nausea and no vomiting Genitourinary: no urinary frequency Physical Exam Constitutional: well developed and + obese; no acute distress Respiratory: normal respiratory effort Auscultation: lungs clear to auscultation bilaterally; no crackles, no rhonchi and no wheezes Cardiovascular: Rate/Rhythm: regular rate and regular rhythm Vessels: no JVD and no carotid bruit Extremities: no calf tenderness, no pedal edema and no edema Gastrointestinal (Abdomen): Inspection/Auscultation: abdomen normal to in spection and normal bowel sounds Percussion/Palpation: abdomen nontender Results & Data ([facility]) Vital Signs (Past 12 Hours) Vital Signs Temp Pulse Pulse Resp BP Pulse Ox 09/18/20 07:17 36.5 C 71 18 114/69 97 09/18/20 04:04 37.1 C 79 18 111/69 96 09/17/20 23:22 37.0 C 70 19 106/64 96
[2020-09-18] MEDS: HEPARIN SODIUM/DEXTROSE 25,000 UNITS/500 ML BAG IV SCH (11:00)
--- NOTE | 2020-09-18 12:35 | Pharmacy Report ---
Pharmacy Glycemic Short Note 2 - Date of Service September 18, 2020 - Glycemic Short BSG Results (Last 24 hours): OUTPATIENT ANTIDIABETIC REGIMEN: * NPH 70 units qAM, 66 units qPM * Regular insulin 40 units qAM, 36 units qPM * A1c = 7.7% (05/18/20) ASSESSMENT: 09/18: * Patient received a total of 45 units of insulin yesterday * 25 units basal + 20 units bolus * This was ~70% reduction in TDD from the previous day * BSGs were [phone] mg/dL - mostly uncontrolled * Fasting BSG this AM was elevated at 173 mg/dL * This is likely due to basal deficiency from yesterday * Will increase basal dose by ~50% today * Given trend in rising post prandial BSGs throughout yesterday and today with lunch: * Will tighten CF/CR to provide more correctional/prandial insulin 09/17: * Patient received 137 units of insulin yesterday with acceptable BSG control: * 90 units of basal * 47 units of bolus * BSGs: 148, 187, 166, 101 mg/dL * Patient had an episode of asymptomatic hypoglycemia this AM (BSG 60 mg/dL) despite 35% decrease in home doses of NPH. Patient was given juice with recheck of 68 mg/dL. AM dose of Novolog and NPH were held. BSG recovery noted at lunchtime, therefore NPH will be resumed at dinner at reduced doses. * Post prandial BSGs were trending downward yesterday. Unclear if this was due to basal insulin or short acting insulin - likely a combination of the two. Novolog parameters have been loosened to avoid further hypo. 09/16: * Law is a 84 yo T2DM s/p [place] * Pharmacy was consulted 09/15 PM for severe hyperglycemia * Patient takes large doses of insulin at home (total 212 units/day). He reported to staff that during previous admissions he required much less insulin than he takes at home. * Fasting BSG of 148 mg/dL is near goal. He received 40 units of NPH last evening, which is ~40% reduction compared to home dose. Will continue 40% reduction this AM and then change to dose per scale. * Post prandial BSGs are improving. Will slightly tighten carb coverage. PLAN FOR INPATIENT GLYCEMIC CONTROL: * Basal insulin - increased * NPH per scale BID with meals (starting with dinner): * 25 units for BSG less than 140 * 30 units for BSG 140 - 200 * 35 units for BSG greater than 200 * Bolus insulin - tightened CF/CR * NovoLog per scale ACHS or Q6hrs while NPO * Goal Range: Low 120 mg/dL - High 160 mg/dL * Correction Factor: 15 mg/dL/unit * Nutritional / Prandial insulin per carb ratio of 1 unit per 5 grams CHO consumed DISCHARGE RECOMMENDATIONS: * HbA1c was 7.9% from this admission which is at goal. Goal HbA1c is < 8% given patient's age and comorbidities. I would not recommend any changes in insulin regimen upon discharge. I would recommend close follow-up with outpatient provider to make any necessary changes given HbA1c trending upwards and recent IA.
--- NOTE | 2020-09-18 14:10 | Hospitalist Progress Note ---
Date of Service September 18, 2020 Assessment & Plan (1) ST elevation GA (STEMI): Peak troponin 76. 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 Also with >90% distal LAD lesions after ANURADHA graft. Completed 48-hour heparin infusion. Remains on asa/plavix, high-intensity statin, ARB, metoprolol. No recurrent cardiopulmonary symptoms. Tele stable. Echocardiogram EF 40-45%, grade 2 diastolic dysfunction, moderate to severe aortic stenosis, RVSP 45-50. Some discussion leading up to today about intervening on LAD lesion. However, this will be deferred and medical management continued instead. LDL <70 on lipid profile this admission. (2) CAD (coronary artery disease): aspirin, plavix, lipitor, toprol BID, ARB. Consider changing toprol to toprol xl given LV dysfunction. (3) Type 2 diabetes mellitus, with long-term current use of insulin: A1c 7.9%. glycemic management per pharmacy - assistance appreciated. (4) Primary hypothyroidism: synthroid 100mcg daily. TSH 1.28. 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 sees Dr. Quijano with [facility] as outpatient. (6) GERD without esophagitis: stable on no meds (7) Hypercholesterolemia: lipitor LDL controlled (8) Malignant neoplasm of prostate: s/p prostatectomy no voiding issues at this time (9) Hypertension: controlled with current meds (10) Moderate to severe aortic stenosis: noted on echo (11) Ischemic cardiomyopathy: EF 40-45% compensated today cont BB cont ARB daily weights, etc (12) DVT prophylaxis: heparin drip just stopped if patient stays beyond tomorrow then start heparin or lovenox SC Admission and Anticipated Discharge Date Admission Date: September 15, 2020 Subjective patient feeling well. no cp, no dyspnea at rest or w/ activity. 1 episode of nonsustained VT on monitor overnight - 9 beats. eating well. ambulating. no GI symptoms. heart cath deferred today - medical management recommended to patient by cardiology. Review of Systems Constitutional: no fever Respiratory: no cough, no dyspnea and no dyspnea on exertion Cardiovascular: no chest pain Gastrointestinal: no abdominal pain Physical Exam Constitutional: well developed and well nourished; no acute distress and no altered mental status ENMT: external ear and nose normal, oropharynx normal Respiratory: normal respiratory effort, lungs clear to auscultation Cardiovascular: Rate/Rhythm: regular rate and regular rhythm Heart Sounds: normal S1, normal S2 and + murmur Vessels: posterior tibial pulses present and dorsalis pedis pulses present; no JVD Extremities: no edema Gastrointestinal (Abdomen): normal bowel sounds, soft, nontender, no hepatosplenomegaly Psychiatric: A+Ox3, euthymic affect Results & Data Results & Data ([facility]) Vital Signs (Past 12 Hours) Vital Signs Temp Pulse Pulse Resp BP Pulse Ox 09/18/20 12:00 37.0 C 66 16 127/70 96 09/18/20 07:17 36.5 C 71 18 114/69 97 09/18/20 04:04 37.1 C 79 18 111/69 96 Laboratory Results Laboratory Results - last 24 hr 09/17/20 09/17/20 09/17/20 14:51 14:51 16:18 WBC RBC Hgb Hct MCV MCH MCHC RDW Std Deviation RDW Coeff of Jaziel Plt Count MPV APTT 48.3 H* PTT Ratio 1.7 Sodium Potassium Chloride Carbon Dioxide Anion Gap BUN Creatinine Est Cr Clr Drug Dosing Est GFR ( Amer) Est GFR (Non-Af Amer) BUN/Creatinine Ratio Glucose POC Glucose 237 H Calcium Phosphorus Magnesium Troponin I 15.900 H* Specimen Hemolysis 09/17/20 09/18/20 09/18/20 20:24 04:20 04:20 WBC 9.08 RBC 4.26 L Hgb 12.9 L Hct 37.4 L MCV 87.8 MCH 30.3 MCHC 34.5 RDW Std Deviation 45.0 RDW Coeff of Jaziel 14.0 Plt Count 238 MPV 10.1 APTT 63.2 H* PTT Ratio 2.3 Sodium Potassium Chloride Carbon Dioxide Anion Gap BUN Creatinine Est Cr Clr Drug Dosing Est GFR ( Amer) Est GFR (Non-Af Amer) BUN/Creatinine Ratio Glucose POC Glucose 257 H Calcium Phosphorus Magnesium Troponin I Specimen Hemolysis 09/18/20 09/18/20 09/18/20 04:20 07:41 11:45 WBC RBC Hgb Hct MCV MCH MCHC RDW Std Deviation RDW Coeff of Jaziel Plt Count MPV APTT PTT Ratio Sodium 137 Potassium 3.8 Chloride 109 H Carbon Dioxide 23 Anion Gap 5.0 BUN 22 H Creatinine 1.05 Est Cr Clr Drug Dosing 64.9 Est GFR ( Amer) 75.7 Est GFR (Non-Af Amer) 65.3 BUN/Creatinine Ratio 20.5 H Glucose 155 H POC Glucose 173 H 230 H Calcium 8.0 L Phosphorus 2.5 Magnesium 2.3 Troponin I Specimen Hemolysis 09/18/20 12:56 WBC RBC Hgb Hct MCV MCH MCHC RDW Std Deviation RDW Coeff of Jaziel Plt Count MPV APTT PTT Ratio Sodium Potassium Chloride Carbon Dioxide Anion Gap BUN Creatinine Est Cr Clr Drug Dosing Est GFR ( Amer) Est GFR (Non-Af Amer) BUN/Creatinine Ratio Glucose POC Glucose 184 H Calcium Phosphorus Magnesium Troponin I Specimen Hemolysis PG Care Time/CCT Total # of Minutes Spent Total Time Spent with Patient: Total time spent is greater than 50% in coordination of care (as documented) at patient's floor/unit and/or counseling patient: Coding Level of Care Code 76448 Subseq Hosp Care Lvl [address] elevation [place] (STEMI) I21.19 Involved coronary artery: other inferior wall coronary artery CAD (coronary artery disease) I25.10 Associated angina: without angina Coronary Disease-Associated Artery/Lesion type: [place] artery [place] vs. transplanted heart: [place] heart Type 2 diabetes mellitus, with long-term current use of insulin E11.59; Z79.4 Diabetes mellitus complication detail: with other circulatory complications Diabetes mellitus complication status: with circulatory complication Primary hypothyroidism E03.9 T-cell lymphoma C85.90 GERD without esophagitis K21.9 Hypercholesterolemia E78.00 Malignant neoplasm of prostate C61 Hypertension I10 Hypertension type: essential hypertension Moderate to severe aortic stenosis I35.0 Ischemic cardiomyopathy I25.5 DVT prophylaxis Z29.9 (1) CAD (coronary artery disease) Associated angina: without angina Coronary Disease-Associated Artery/Lesion type: [place] artery [place] vs. transplanted heart: [place] heart Qualified Code(s): I25.10 - Atherosclerotic heart disease of [place] coronary artery without angina pectoris (2) ST elevation [place] (STEMI) Involved coronary artery: other inferior wall coronary artery Qualified Code(s): I21.19 - ST elevation (STEMI) myocardial infarction involving other coronary artery of inferior wall (3) Type 2 diabetes mellitus, with long-term current use of insulin Diabetes mellitus complication detail: with other circulatory complications Diabetes mellitus complication status: with circulatory complication Qualified Code(s): E11.59 - Type 2 diabetes mellitus with other circulatory complications; Z79.4 - jail (current) use of insulin (4) Hypertension Hypertension type: essential hypertension Qualified Code(s): I10 - Essential (primary) hypertension
[2020-09-19] MEDS: LEVOTHYROXINE SODIUM 100 MCG TABLET PO SCH (06:20)
[2020-09-19] MEDS: INSULIN ASPART 100 UNITS/ML 3 ML PEN SC SCH (07:51)
[2020-09-19] MEDS: INSULIN HUMAN NPH SC SCH (07:53)
[2020-09-19] MEDS: CLOPIDOGREL BISULFATE 75 MG TAB PO SCH (08:00)
[2020-09-19] MEDS: ASPIRIN 81 MG ECTAB PO SCH (08:00)
[2020-09-19] MEDS: METOPROLOL TARTRATE 100 MG TAB PO SCH (08:00)
[2020-09-19] MEDS: ATORVASTATIN 40 MG TAB PO SCH (08:00)
[2020-09-19] MEDS: LOSARTAN POTASSIUM 25 MG TAB PO SCH (08:01)
--- NOTE | 2020-09-19 08:52 | Pharmacy Report ---
Pharmacy Glycemic Short Note 2 - Date of Service September 19, 2020 - Glycemic Short BSG Results (Last 24 hours): 09/18/20 09/18/20 09/18/20 11:45 12:56 16:05 POC Glucose 230 H 184 H 244 H 09/18/20 09/19/20 20:35 07:35 POC Glucose 285 H 187 H OUTPATIENT ANTIDIABETIC REGIMEN: * NPH 70 units qAM, 66 units qPM * Regular insulin 40 units qAM, 36 units qPM * A1c = 7.7% (05/18/20) ASSESSMENT: * Law is a 84 yo T2DM s/p [place] * Pharmacy was consulted 09/15 PM for severe hyperglycemia * Patient takes large doses of insulin at home (total 212 units/day). He reported to staff that during previous admissions he required much less insulin than he takes at home. 09/19: * Mr. Ca received a total of 98 units of insulin yesterday - more than double from the previous day * 55 units basal + 43 units bolus * BSGs were uncontrolled yesterday: [phone] mg/dL * Believe that patient is likely basal deficient given reduced insulin doses from his hypoglycemic episode on 09/17 * Basal insulin was increased by 120% yesterday. Fasting BSG this AM was still trending upwards from yesterday at 187 mg/dL. Therefore, will plan to increase basal insulin by another 20-30% today. Of note, patient receives 136 units of basal insulin as an outpatient and received 90 units of basal on the day of his hypoglycemic episode. Today's dose will provide at most 80 units of basal which I do not expect to cause hypoglycemia. * Lunchtime BSG was [] * Post prandial BSGs trended up throughout the day yesterday so her correction factor and carbohydrate ratio were increased with lunch. 09/18: * Patient received a total of 45 units of insulin yesterday * 25 units basal + 20 units bolus * This was ~70% reduction in TDD from the previous day * BSGs were [phone] mg/dL - mostly uncontrolled * Fasting BSG this AM was elevated at 173 mg/dL * This is likely due to basal deficiency from yesterday * Will increase basal dose by ~50% today * Given trend in rising post prandial BSGs throughout yesterday and today with lunch: * Will tighten CF/CR to provide more correctional/prandial insulin PLAN FOR INPATIENT GLYCEMIC CONTROL: * Basal insulin - increased * NPH per scale BID with meals: * 30 units for BSG less than 140 * 35 units for BSG 140 - 200 * 40 units for BSG greater than 200 * Bolus insulin - * NovoLog per scale ACHS or Q6hrs while NPO * Goal Range: Low 120 mg/dL - High 160 mg/dL * Correction Factor: 15 mg/dL/unit * Nutritional / Prandial insulin per carb ratio of 1 unit per 5 grams CHO consumed DISCHARGE RECOMMENDATIONS: * HbA1c was 7.9% from this admission which is at goal. Goal HbA1c is < 8% given patient's age and comorbidities. I would not recommend any changes in insulin regimen upon discharge. I would recommend close follow-up with outpatient provider to make any necessary changes given HbA1c trending upwards and recent HI.
[2020-09-19] MEDS ORDERED: FUROSEMIDE 20 MG TAB PO SCH (09:00)
[2020-09-19] MEDS ORDERED: POTASSIUM CHLORIDE 10 MEQ TABCR PO SCH (09:00)
--- NOTE | 2020-09-19 10:00 | Hospitalist Progress Note ---
Date of Service September 19, 2020 Assessment & Plan (1) ST elevation [place] (STEMI): Peak troponin 76. 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 Also with >90% distal LAD lesions after ANURADHA graft. Completed 48-hour heparin infusion. Remains on asa/plavix, high-intensity statin, ARB, metoprolol. LDL 69 on lipid profile. No recurrent cardiopulmonary symptoms. Tele with occasional runs of NSVT. Echocardiogram EF 40-45%, grade 2 diastolic dysfunction, moderate to severe aortic stenosis, RVSP 45-50. Medical management for CAD continued rather than attempting cath intervention. NO ischemic symptoms since admission. Dr Holt to d/c home today. (2) Ischemic cardiomyopathy: EF 40-45% compensated cont BB cont ARB cont lasix with K supplementation daily weights, etc (3) Moderate to severe aortic stenosis: noted on echo (4) Type 2 diabetes mellitus, with long-term current use of insulin: A1c 7.9%. glycemic management per pharmacy - assistance appreciated during this admission. I stressed to him the importance of checking his blood sugars more than once daily. He is on N & R twice daily each and I told him that glycemic control is paramount in the setting of his severe CAD. He voiced understanding. From medical standpoint can d/c home. f/u with PCP for DM and other medical issues. Admission and Anticipated Discharge Date Admission Date: September 15, 2020 Subjective patient feeling well with no rest or exertional chest pain, dyspnea, orthopnea, PND. eating well. no cough or other respiratory complaints. run of nonsustained VT overnight. no symptoms. Review of Systems Constitutional: no fever and no chills Respiratory: no cough, no dyspnea and no dyspnea on exertion Cardiovascular: no chest pain Gastrointestinal: no abdominal pain, no nausea and no vomiting Physical Exam Constitutional: well developed and well nourished; no acute distress and no altered mental status ENMT: external ear and nose normal, oropharynx normal Respiratory: normal respiratory effort, lungs clear to auscultation Cardiovascular: Rate/Rhythm: regular rate and regular rhythm Heart Sounds: normal S1, normal S2 and + murmur Vessels: posterior tibial pulses present and dorsalis pedis pulses present; no JVD Extremities: no edema Gastrointestinal (Abdomen): normal bowel sounds, soft, nontender, no hepatosplenomegaly Psychiatric: A+Ox3, euthymic affect Results & Data Results & Data ([facility]) Vital Signs (Past 12 Hours) Vital Signs Temp Pulse Resp BP Pulse Ox 09/19/20 08:05 36.8 C 56 L 20 131/74 95 09/19/20 04:54 36.9 C 55 L 18 121/70 96 09/18/20 23:49 37.4 C 70 18 112/65 96 Laboratory Results Laboratory Results - last 24 hr 09/18/20 09/18/20 09/18/20 11:45 12:56 16:05 APTT PTT Ratio POC Glucose 230 H 184 H 244 H 09/18/20 09/19/20 09/19/20 20:35 07:35 07:56 APTT 28.0 PTT Ratio 1.0 POC Glucose 285 H 187 H PG Care Time/CCT Total # of Minutes Spent Total Time Spent with Patient: Total time spent is greater than 50% in coordination of care (as documented) at patient's floor/unit and/or counseling patient: Coding Level of Care Code 42505 Subseq Hosp Care Lvl [address] elevation [place] (STEMI) I21.19 Involved coronary artery: other inferior wall coronary artery Ischemic cardiomyopathy I25.5 Moderate to severe aortic stenosis I35.0 Type 2 diabetes mellitus, with long-term current use of insulin E11.59; Z79.4 Diabetes mellitus complication status: with circulatory complication Diabetes mellitus complication detail: with other circulatory complications (1) ST elevation [place] (STEMI) Involved coronary artery: other inferior wall coronary artery Qualified Code(s): I21.19 - ST elevation (STEMI) myocardial infarction involving other coronary artery of inferior wall (2) Type 2 diabetes mellitus, with long-term current use of insulin Diabetes mellitus complication status: with circulatory complication Diabetes mellitus complication detail: with other circulatory complications Qualified Code(s): E11.59 - Type 2 diabetes mellitus with other circulatory complications; Z79.4 - [place] (current) use of insulin
[2020-09-19] MEDS: LATANOPROST 0.005% OP SOLN 2.5 ML BTL OP SCH (10:17)
--- NOTE | 2020-09-19 12:14 | Medical Student Progress Note ---
Date of Service September 19, 2020 Assessment & Plan (1) ST elevation [place] (STEMI): Mr Ca is an 84 yo male with a cardiovascular pmh sig for CAD s/p 2 vessel CABG, SA, HTN, HLD. He was admitted 4 days ago due to concern of acute AK. EKG showed ST elevations that seemed to have resolved in f/u EKG. Cardiomegaly and vascular congestion on CXR. Echo showed mild LV dysfunction and inferolateral wall severe hypokinesis is addition to moderate to severe on echo along with echocardiogram EF 40- 45%, grade 2 diastolic dysfunction. Initial cardiac cath evaluation which revealed occlusion of proximal circumflex. Cardiology decided he was not amenable to PCI and was medically treated and m onitored at telemetry unit over the weekend. He was seen by cardiology today. It was decided that he will continue medical treatment. Plan: agree with cardiology plan: continue to treat medically: Increase metoprolol from 100 to 200 daily. Start Lasix 20 mg daily with K supplement Continue dual antiplatelet therapy with aspirin and clopidogrel continue losartan monitor for worsening sxs that might call for a PCI Ready to be discharged home Involved coronary artery: other inferior wall coronary artery Qualified Code(s): I21.19 - ST elevation (STEMI) myocardial infarction involving other coronary artery of inferior wall (2) Ischemic cardiomyopathy: Echo showed mild LV dysfunction and inferolateral wall severe hypokinesis is addition to moderate to severe on echo along with echocardiogram EF 40- 45%, grade 2 diastolic dysfunction. Cardiomyopathy seems to be compensated. No clinical signs of congestion. Dyspnea and weight ( - <2 kg) improved on Lasix. Plan: agree with cardiology plan: continue to treat medically: Increase metoprolol from 100 to 200 daily. Start Lasix 20 mg daily with K supplement Continue dual antiplatelet therapy with aspirin and clopidogrel continue losartan monitor for worsening sxs that might call for a PCI Ready to be discharged home (3) Moderate to severe aortic stenosis: see above (4) Type 2 diabetes mellitus, with long-term current use of insulin: Patient has been on insulin therapy for DM2 for many number of years. During his hospital stay he had 1 hypoglycemia episode in which his glucose levels dropped to 55. His glucose is 187 today. He feels better. No further hypoglycemia sxs A1c 7.9 Plan: continue Humulin R Regular and NPH before meals after measuring blood sugars repeat A1c in 3 months educated patient on importance of taking blood sugars at home regularly with his insulin regimen f/u w/ pcp Diabetes mellitus complication detail: with other circulatory complications Diabetes mellitus complication status: with circulatory complication Qualified Code(s): E11.59 - Type 2 diabetes mellitus with other circulatory complications; Z79.4 - [facility] (current) use of insulin Admission and Anticipated Discharge Date Admission Date: September 15, 2020 Subjective Mr. Umana is feeling well today. No chest pain or dyspnea at rest or with activity. He is eating well and walking around his room comfortably. No overnight events except fir 1 episode of 12 beats nonsustained VT on monitor Review of Systems Constitutional: no fever, no chills, no sweats, no fatigue and no malaise Respiratory: no cough, no chest congestion, no dyspnea and no dyspnea on exert ion Cardiovascular: no chest pain, no chest pain at rest, no chest pain with activity, no radiating jaw, neck or arm pain, no dyspnea, no dyspnea at rest and no dyspnea on exertion Gastrointestinal: no abdominal pain, no nausea, no vomiting, no constipation and no diarrhea/loose stools Neurologic: no gait abnormality, no unsteadiness, no falls, no paralysis, no loss of sensation, no tingling, no numbness and no paresthesia Psychiatric: no behavioral changes, no depression and no change in appetite Physical Exam Constitutional: well developed and + obese; no acute distress Respiratory: normal respiratory effort Auscultation: lungs clear to auscultation bilaterally; no crackles, no rhonchi and no wheezes Cardiovascular: Rate/Rhythm: regular rate and regular rhythm Heart Sounds: normal S1, normal S2 and + murmur; no gallop and no cardiac rub Vessels: no JVD and no carotid bruit Extremities: no calf tenderness, no pedal edema and no edema Gastrointestinal (Abdomen): normal bowel sounds, soft, nontender, no hepatosplenomegaly Inspection/Auscultation: abdomen normal to inspection and normal bowel sounds; abdomen not distended Percussion/Palpation: abdomen nontender Skin: no rashes, warm and dry Psychiatric: Orientation: alert and oriented x 3 Apperance: appropriately dressed and appropriately groomed Eye Contact: good eye contact Motor Beha vior: steady gait and station Speech: normal rate/rhythm/volume of speech Affect: euthymic affect Results & Data ([facility]) Vital Signs (Past 12 Hours) Vital Signs Temp Pulse Resp BP Pulse Ox 09/19/20 10:01 36.8 C 56 L 20 131/74 95 09/19/20 08:05 36.8 C 56 L 20 131/74 95 09/19/20 04:54 36.9 C 55 L 18 121/70 96
--- NOTE | 2020-09-19 13:54 | Discharge Summary ---
Date of Service September 19, 2020 Admission HPI Per Admitting Provider 84-year-old man here with acute chest pain and ECG concerning for acute [place]. Patient seen emergently in the ED after heart alert activated upon arrival. Past cardiac history remarkable for coronary artery disease post two-vessel CABG in 2013 (ANURADHA to LAD, TESFAYE to circumflex), moderate to severe aortic stenosis, hypertension. He is followed by Dr. Trotter as an outpatient. 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 Patient active at baseline. Today was working in his yard when developed persistent shortness of breath. Has had similar shortness of breath with exertion usually resolving with rest but today symptoms persisted. Denies any real chest pain. In the ED when hemodynamically stable. No chest pain and shortness of breath had largely resolved. Initial ECG showed inferior ST elevations, lateral ST depressions as well as elevation in aVR. Specialty Data Cardiology Cardiac catheterization 09/15/2020: 1. Severe kake multivessel coronary artery disease -100% chronic distal left main occlusion 100% proximal acute on chronic circumflex occlusion 90+% mid LAD stenosis after anastomosis of ANURADHA 50 to 60% proximal to mid RCA 2. Widely patent ANURADHA to LAD, TESFAYE to first diagonal. Echo 09/16/2020: Borderline LVH, LVEF 40 to 45%, severe inferolateral hypokinesis, moderate to severe aortic stenosis (PV 3.4, MG 28, YASMINE 0.7, DI 0.27) moderate MR, grade 2 diastolic dysfunction, mild to moderate pulmonary hypertension, PASP 45-50 Discharge Data Consultations 09/15/20 18:19 ED Decision to Admit Stat 09/15/20 18:20 Consult Cardiac Catheterization Stat 09/15/20 19:59 Consult Cardiac Rehabilitation Routine 09/15/20 20:00 Consult Hospitalist Routine Procedures Performed Operation Date: 09/15/20 18:00 Actual Procedures s Cineradiography w/Routine Exam - Shay Holt MD p Cath, Cors with Grafts (no LV) - Shay Holt MD Operation Date: 09/18/20 13:00 <No data on this case meets the specified criteria> Hospital Course (1) Acute [place]: Patient was taken urgently for cardiac catheterization which revealed an acute on chronic proximal circumflex subtotal occlusion which was thought to be the culprit for his presenting symptoms. Was noted to have some left to left collaterals to his obtuse marginal/PLB. On catheterization also noted to have a patent TESFAYE to first diagonal and ANURADHA to LAD. Distal to ANURADHA anastomosis found to have a 90% focal LAD stenosis. Proximal circumflex occlusion was not amenable to PCI and as patient was chest pain-free at time of catheterization intervention to LAD stenosis was deferred. He was admitted to telemetry where he remained chest pain-free throughout the remainder of his hospitalization. His troponin peaked at 76. Repeat echocardiogram again showed moderate to severe aortic stenosis and moderate mitral regurgitation. He had a new inferolateral wall motion abnormality and mild LV dysfunction with an EF around 45%. On hospital day 3 was noted to be more dyspneic with evidence of volume overload which responded well to IV Lasix. Heparin infusion discontinued on hospital day 4. Further discussion had with Cy Trotter, his primary plumber's assistant, regarding additional intervention to LAD and for now we will plan to treat conservatively. Discharged to home on hospital day 5 on new DAPT with aspirin and clopidogrel. Toprol-XL increased from 100 to 200 mg daily. Started on Lasix 20 mg daily with potassium supplementation. He will follow-up with Dr. Trotter in 1 week with repeat BMP at that time. Discharge Instructions Home Medications multivitamin 1 tab PO DAILY #30 tab 05/31/19 [Rx Confirmed 08/14/20] vitamin B complex 1 tab PO DAILY #30 tab 05/31/19 [Rx Confirmed 08/14/20] latanoprost 0.005 % eye drops 1 drops OP DAILY ml 07/14/19 [History Confirmed 08/14/20] levothyroxine 100 mcg tablet 100 mcg PO DAILY #90 tab 12/06/19 [Rx Confirmed 08/14/20] losartan 25 mg tablet 25 mg PO DAILY #90 tab 12/06/19 [Rx Confirmed 08/14/20] blood sugar diagnostic #180 ea 12/10/19 [Rx Confirmed 08/14/20] Humulin N NPH U-100 Insulin 100 unit/mL subcutaneous See Rx Instructions SQ .COMPLEX #50 ml NS 05/25/20 [Rx Confirmed 08/14/20] Humulin R Regular U-100 Insuln 100 unit/mL injection solution See Rx Instructions SQ BID #30 ml NS 05/25/20 [Rx Confirmed 08/14/20] insulin syringe-needle U-100 1 mL 31 gauge x /" ea 05/25/20 [History Confirmed 08/14/20] atorvastatin 20 mg tablet 20 mg PO QPM #90 tab 09/08/20 [Rx] aspirin 81 mg PO QAM #30 tab 09/19/20 [Rx] clopidogrel 75 mg PO QAM #30 tab 09/19/20 [Rx] furosemide 20 mg PO QAM #30 tab 09/19/20 [Rx] metoprolol succinate 200 mg PO DAILY #180 tab 09/19/20 [Rx Confirmed 08/14/20] nitroglycerin [Nitrostat] 0.4 mg SUBLINGUAL PRN PRN #30 tab 09/19/20 [Rx] pantoprazole [Protonix] 40 mg PO DAILY #30 tab 09/19/20 [Rx] potassium chloride [Klor-Con M10] 10 meq PO DAILY #30 tab 09/19/20 [Rx] Coding Level of Care Code D/C Day Management >30 mins Diagnoses Acute [place] I21.[address]: [address] elevation myocardial infarction
== END 2020-09-19 10:32 | disposition home or self-care (01) | DRG 281 ==
LOC: ED 17:00 → 2S 20:06
PROC: CLB.CCG (2020-09-15 18:00)

== ENCOUNTER 2020-12-10 06:24 | Observation (INO) ==
[~2020-12-10 06:24] MED LIST changes: -ASPEC81 PO; -ATOR-22 PO; -B-COTAB18 PO; -CLOP1TAB15 PO; -COQ10100 PO; -GLGKIT; -INSUINJ SC; -INSUINJ17 SC; +INSULIN ASPART 100 UNITS/ML 3 ML PEN SC ONE; -LATA0.009 OPB; -METO100T44 PO; -MULT-506 PO; -NIAC1TAB59 PO; -OMEG10007 PO; -OMEP20CA9 PO; -SYN100 PO
[2020-12-10] MEDS ORDERED: FAMOTIDINE 20MG IV PUSH 20 MG/5 ML SYR IV STA (06:45)
[2020-12-10] MEDS ORDERED: METOCLOPRAMIDE HCL INJ 5 MG/ML 2 ML VIAL IV STA (06:46)
[2020-12-10 07:18] LABS: Basophils # (auto) 0.03 K/uL (0-0.2); Basophils % (auto) 0.3 %; Eosinophils % (auto) 1.1 %; Hematocrit (blood only) 37.4 % (42-52); Hemoglobin 12.6 g/dL (14.0-18.0); Immature Granulocytes # (auto) 0.02 K/uL (0.00-0.02); Immature Granulocytes % (auto) 0.2 %; Lymphocytes # (auto) 1.05 K/uL (1.2-3.4); Lymphocytes % (auto) 11.7 %; Mean Corpuscular Hemoglobin 29.1 pg (25-34); Mean Corpuscular Hgb Conc 33.7 g/dL (32-36); Mean Corpuscular Volume 86.4 fL (80-100); Mean Platelet Volume 9.4 fL (7.4-10.4); Monocytes # (auto) 0.89 K/uL (0.11-0.59); Neutrophils # (auto) 6.85 K/uL (1.4-6.5); Neutrophils % (auto) 76.7 %; Platelet Count 288 K/uL (130-400); Red Blood Count 4.33 M/uL (4.7-6.1); White Blood Count 8.94 K/uL (4.8-10.8)
--- NOTE | 2020-12-10 07:18 | Emergency Department Note ---
Impression & Plan Substernal chest pain, Epigastric abdominal pain, Elevated troponin, CHF (congestive heart failure) ED Provider Note NAME: RACHELLE ELIZABETH AGE: 85 SEX: M ARRIVES VIA: Ambulance INFORMANT: Patient, ED PROVIDER(S): Kayode Moe MD CHIEF COMPLAINT: abdominal pain PLAN: Disposition: Admit MEDICAL DECISION MAKING: The patient is a pleasant 85-year-old gentleman with a past medical history of CAD status post CABG, history of preserved EF heart failure, moderate to severe aortic stenosis, moderate MR, pulmonary hypertension, hyperlipidemia, DM2 on insulin, obesity, hypertension, hyperlipidemia presents emergency department with acute onset epigastric pain which began around midnight and per the patient did not allow him to sleep despite taking Pepto-Bismol. Prior to this last night he reports yesterday and the day prior feeling well without any similar pain and denies fevers, chills, cough, congestion, nausea, vomiting, diarrhea. He reports he had a normal bowel movement yesterday and the day before. He does report intermittent shortness of breath which he relates is ongoing for several months. He does relate that he was admitted to the hospital for his abdominal pain and he is unsure what the cause was attributed to. Review of the patient's records does comment that the patient did have STEMI in September 2020 found to have chronic 100% distal left main occlusion, 100% proximal acute on chronic circumflex occlusion and 90% mid LAD stenosis after anastomosis of ANURADHA, 50 to 60% proximal mid RCA which was medically managed with volume management. Patient was admitted to [facility] from 12/03-12/05 for symptoms of substernal and epigastric pain. He was noted to have volume overload component of CHF. However the etiology to the patient's epigastric pain was unclear. Patient did have a CT scan of his abdomen that was unremarkable. His echo from the hospitalization showed improved EF to 50-55%. Differential diagnosis of his epigastric pain is unclear and gastritis, PUD among others were considered. Of note, his pain did resolve following diuresis and so hepatic congestion was considered likely. He also had diarrhea with negative C. difficile testing and so pancreatic insufficiency given atrophy on CT was also considered. He did have troponins peaked at 0.493 which was thought to be related to his volume overload/decompensated CHF. WBC and platelets within normal limits. H/H 12.6/37.4 slightly decreased from recent admission the may be related to patient's volume overload. Chemistry without metabolic acidosis. Electrolytes and LFTs without significant abnormality. Troponin 0.525 increased from patient's recent admission. BNP 4700 creased from 3K on patient's prior admission. Lipase is not elevated. Given the patient's increased BNP and exam it would seem he is at increased fluid retention although his weight is 105 kg today and he was 109kg on admission previously. CT on pelvis performed and negative for acute intra-abdominal process. Partially visualized bilateral pleural effusions are again seen and suggestive of pulmonary edema. Repeat Troponin slightly improved/stable at 0.461. While patient initially felt improvement with Pepcid and GI cocktail, he again was feeling return of his pain and was concerned about going home. Given the patient's history with unclear etiology to pain he agreed with admission. Patient ordered Lasix and well as Carafate for suspected components of CHF and gastritis, respectively. Case was discussed with Dr. Sorto, [facility] hospitalist, who will evaluate the patient for admission. Triage Nursing notes reviewed and agree them. Prior medical records reviewed Vital Signs: reviewed and remarkable for no significant abnormalities Differential diagnosis: Appendicitis, testicular torsion, infections, diverticulitis, UTI, obstruction, mesenteric ischemia, aortic pathology, inflammatory bowel disease, renal colic, PUD, pancreatitis, biliary pathology, hernia, volvulus, constipation, as well as other pathologies. ER treatment provided: See below. Diagnostics interpreted by me: ECG: NSR, 67 bpm, no ectopy, LVH with repolarization abnormality, no overt ST elevation. Similar to 12/04/2020. Cardiac Monitoring: An order for continuous cardiac monitoring was placed and demonstrated NSR, 67 bpm, no ectopy. Laboratory studies: See below Imaging studies: ABDOMEN AND PELVIS CT WITH IV CONTRAST CT DOSE: 1199.04 mGy.cm HISTORY: upper abdominal pain TECHNIQUE: Multiaxial CT images of the abdomen and pelvis were performed following the use of intravenous contrast. A dose lowering technique was utilized adhering to the principles of ALARA. COMPARISON STUDY: Abdomen and pelvis CT 12/03/2020. FINDINGS: : Imaged portions of the lower chest partially visualize moderate bilateral pleural effusions. Interlobular septal thickening indicates pulmonary edema. There are also groundglass opacities. Cardiomegaly is noted. This remains unchanged. No pneumatosis, free air or portal venous gas is present. The liver, spleen, and right kidney are unremarkable. There is no hydronephrosis. Stable bilateral adrenal gland nodularity. A water attenuation 7.4 cm lesion within the lower pole of the left kidney reflects a cyst. There is marked pancreatic glandular atrophy. There is no biliary or pancreatic ductal dilatation. There is no evidence for a bowel obstruction. Left colon diverticulosis is noted without evidence for acute diverticulitis. The appendix is surgically absent. The prostate is surgically absent. There is no abnormality within the prostatectomy bed. There is no lymphadenopathy. No suspicious skeletal lesions are present. There are multiple fat containing ventral hernias. No acute lumbar spine or pelvic fractures identified. Mild bilateral perinephric edema, unchanged. Chronic skin thickening within the lower abdominal rader. IMPRESSION: 1. No significant change compared to the prior study. No acute process within the abdomen or pelvis. 2. Colonic diverticulosis without evidence for acute diverticulitis. 3. Partially visualized moderate bilateral pleural effusions with evidence for pulmonary edema. Ground glass opacities favor atelectasis or edema although superimposed infectious process could appear similar. 4. Status post prostatectomy. ACT 112: Negative or not required by law. Electronically signed by: Denver Dunn M.D. 12/10/2020 8:37 AM Dictated: 12/10/20829 Transcribed: 12/10/20829 Consultation(s): Case was discussed with Dr. Sorto, [facility] hospitalist, who will evaluate the patient for admission. HPI: The patient is a pleasant 85-year-old gentleman with a past medical history of CAD status post CABG, history of preserved EF heart failure, moderate to severe aortic stenosis, moderate MR, pulmonary hypertension, hyperlipidemia, DM2 on insulin, obesity, hypertension, hyperlipidemia presents emergency department with acute onset epigastric pain which began around midnight and per the patient did not allow him to sleep despite taking Pepto-Bismol. Prior to this last night he reports yesterday and the day prior feeling well without any similar pain and denies fevers, chills, cough, congestion, nausea, vomiting, diarrhea. He reports he had a normal bowel movement yesterday and the day before. He does report intermittent shortness of breath which he relates is ongoing for several months. He does relate that he was admitted to the hospital for his abdominal pain and he is unsure what the cause was attributed to. ROS: See above HPI for pertinent positives & negatives. A total of 10 systems reviewed and were otherwise negative. PAST MEDICAL HISTORY:See Below PAST SURGICAL HISTORY:See Below FAMILY HISTORY:See Below SOCIAL HISTORY:See Below HOME MEDICATIONS:See Below ALLERGIES:See Below VITALS:See Below PHYSICAL EXAMINATION: GENERAL: Awake, alert, fatigued-appearing, in no distress HENT: Normocephalic, atraumatic. Oropharynx unremarkable. EYES: Normal conjunctiva. Sclera non-icteric. NECK: Supple. No nuchal rigidity. FROM. No JVD. RESPIRATORY: Diminished at bases. Mildly dyspneic in no distress. CARDIAC: Regular rate, normal rhythm. Extremities warm and well perfused. Pulses equal. ABDOMEN: Soft, non-distended. Mild epigastric tenderness to palpation. No rebound or guarding. No masses. RECTAL: Deferred. MUSCULOSKELETAL: Chest examination reveals no tenderness. The back is symmetrical on inspection without obvious abnormality. There is no CVA tenderness to palpation. No joint edema. LOWER EXTREMITIES: Calves are equal size bilaterally and non-tender. 1+ edema. No discoloration. NEURO: Normal sensorium. No sensory or motor deficits noted. SKIN: No rash or jaundice noted. ED COURSE: Critical Care: I have personally spent greater than 35 minutes of critical care time in the direct management of this patient. This includes bedside care, interpretation of diagnostic studies, and testing, discussion with consultants, patient, and family members, and other required patient management activities. This 35 minutes is in excess of all separately billable procedures. Kayode Moe MD Past Med/Surg History Medical History (Updated 12/11/20 @ 01:07 by Kayode Moe MD) Acute RI CAD (coronary artery disease) Diabetes mellitus, with long-term current use of insulin Diabetic peripheral neuropathy Diarrhea Elevated prostate specific antigen (PSA) Epigastric abdominal pain GERD without esophagitis Glaucoma History of parotid cancer Hypercholesterolemia Hypertension Inferolateral myocardial infarction Ischemic cardiomyopathy Malignant neoplasm of prostate Mitral regurgitation Moderate to severe aortic stenosis Never smoker Osteoarthritis of hands, bilateral Osteoarthritis of left knee Primary hypothyroidism ST elevation RI (STEMI) Tricuspid regurgitation Surgical History H/O transfusion of whole blood H/O varicose veins November 1970 History of genitourinary surgery 04/05/2003 S/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 Family History (Reviewed 11/18/20 @ 14:59 by Shola Trotter Jr, MD, [facility]) Brother Prostate cancer Family/Other Cancer Diabetes Heart disease Hypertension Denies family history of Colon cancer Ovarian cancer Myocardial infarction Breast cancer Social History Smoking Status: Never smoker Second Hand Exposure: No; Hx Alcohol Use: Yes Alcohol type: beer Hx Substance Use: No Preferred Language: Hebrew Communication Ability: Effective Visual Impairment: No Limitations Hearing Ability: Normal Veterinary Surgery Technologist Required: No Beliefs That Will Affect Care: None marital status: / Current Living Situation: Alone current occupational status: retired Other Information That Helps Us Care for You: No Feels Safe at Home: Yes Safety Concerns: Feels Safe At This Time Childhood Exposure to Second-Hand Smoke: Yes Dental Care, Regularly: No Physical Activity Frequency: 3-4 Times per Week Seatbelt Use: always Sunscreen Use: No Assistive Devices: None Allergies Allergies Allergy/AdvReac Type Severity Reaction Status Date / Time adhesive Allergy Mild RASH Verified 12/10/20 06:52 Penicillins Allergy Unknown RASH Unverified 12/10/20 06:52 Home Meds Home Medications Medication Instructions Recorded Confirmed latanoprost 0.005 % eye drops 1 drops OP DAILY ml 07/14/19 12/10/20 insulin syringe-needle U-100 1 mL ea 05/25/20 12/08/20 31 gauge x 5/16" Humulin N NPH U-100 Insulin 66 - 70 unit SQ AMPM 12/03/20 12/10/20 Humulin R Regular U-100 Insuln 36 - 40 unit SQ AMPM 12/03/20 12/10/20 levothyroxine 100 mcg PO QAM 12/03/20 12/10/20 metoprolol succinate 200 mg PO QAM 12/03/20 12/10/20 multivitamin [Daily Multi-Vitamin] 1 tab PO QAM 12/03/20 12/10/20 pantoprazole [Protonix] 40 mg PO QAM 12/03/20 12/10/20 potassium chloride [Klor-Con M10] 10 meq PO QAM 12/03/20 12/10/20 vitamin B complex 1 tab PO QAM 12/03/20 12/10/20 coenzyme Q10 1 cap PO DAILY 12/07/20 12/10/20 Previous Rx's Medication Instructions Recorded blood sugar diagnostic #180 ea 12/10/19 atorvastatin 20 mg tablet 20 mg PO QPM #90 tab 09/08/20 aspirin 81 mg PO QAM #30 tab 09/19/20 clopidogrel 75 mg tablet 75 mg PO QAM #90 tab 09/21/20 ranolazine 500 mg tablet,extended 500 mg PO BID #180 tab 11/18/20 release,12 hr furosemide 40 mg PO QAM #90 tab 12/05/20 isosorbide mononitrate 60 mg 60 mg PO DAILY #30 tab 12/07/20 tablet,extended release 24 hr nitroglycerin 0.4 mg sublingual 0.4 mg SUBLINGUAL PRN PRN #30 tab 12/07/20 tablet piriel-[id number]-[id number] 1 cap PO BID #60 cap 12/08/20 3,000-9,500-15,000 unit capsule,delayed releas losartan 25 mg tablet 25 mg PO DAILY #90 tab 12/08/20 Results & Data (ED) Vital Signs Vital Signs - 24 hr 12/10/20 06:38 12/10/20 08:16 12/10/20 11:01 Temperature 36.5 C Temperature Source Oral Pulse Rate 82 Pulse Rate [Apical] 83 Pulse Rate from SpO2 Sensor 75 Pulse Rhythm Regular Pulse Strength Normal Respiratory Rate 15 18 15 Respiratory Effort / Characteristics Non-Labored Spontaneous Respiratory Depth Normal Respiratory Pattern Regular Blood Pressure 132/75 145/89 H Blood Pressure [Left Arm] 144/92 H Blood Pressure Mean 94 107 Blood Pressure Mean [Left Arm] 109 Blood Pressure Position Sitting Pulse Oximetry 95 95 96 Oxygen Delivery Method Room Air Room Air Sepsis Recent Fever Within 48 Hours No Sepsis New/Unexplained Change in Mental Status No Sepsis Action Taken by Nursing No Action Required 12/10/20 11:30 12/10/20 12:00 12/10/20 13:00 Temperature Temperature Source Pulse Rate 73 74 83 Pulse Rate [Apical] Pulse Rate from SpO2 Sensor 73 74 Pulse Rhythm Pulse Strength Respiratory Rate 15 24 33 H Respiratory Effort / Characteristics Respiratory Depth Respiratory Pattern Blood Pressure 149/97 H 128/93 155/93 H Blood Pressure [Left Arm] Blood Pressure Mean 114 104 113 Blood Pressure Mean [Left Arm] Blood Pressure Position Pulse Oximetry 97 97 Oxygen Delivery Method Sepsis Recent Fever Within 48 Hours Sepsis New/Unexplained Change in Mental Status Sepsis Action Taken by Nursing Laboratory Data Result diagrams: 12/10/20 07:10 12/10/20 07:10 Lab Results 12/10/20 12/10/20 12/10/20 Range/Units 07:10 07:10 09:49 WBC 8.94 (4.8-10.8) K/uL RBC 4.33 L (4.7-6.1) M/uL Hgb 12.6 L (14.0-18.0) g/dL Hct 37.4 L (42-52) % MCV 86.4 (80-100) fL MCH 29.1 (25-34) pg MCHC 33.7 (32-36) g/dL RDW Std Deviation 47.0 H (36.4-46.3) fL RDW Coeff of Jaziel 15.0 H (11.5-14.5) % Plt Count 288 (130-400) K/uL MPV 9.4 (7.4-10.4) fL Immature Gran % (Auto) 0.2 % Neut % (Auto) 76.7 % Lymph % (Auto) 11.7 % [place] % (Auto) 10.0 % Eos % (Auto) 1.1 % Baso % (Auto) 0.3 % Neut # (Auto) 6.85 H (1.4-6.5) K/uL Lymph # (Auto) 1.05 L (1.2-3.4) K/uL [place] # (Auto) 0.89 H (0.11-0.59) K/uL Eos # (Auto) 0.10 (0-0.5) K/uL Baso # (Auto) 0.03 (0-0.2) K/uL Immature Gran # (Auto) 0.02 (0.00-0.02) K/uL Sodium 138 (136-145) mmol/L Potassium 4.3 (3.5-5.1) mmol/L Chloride 107 (98-107) mmol/L Carbon Dioxide 26 (21-32) mmol/L Anion Gap 5.0 (3-11) BUN 24 H (7-18) mg/dl Creatinine 1.27 (0.6-1.4) mg/dl Est Cr Clr Drug Dosing 50.9 ml/min Est GFR ( Amer) 59.7 Est GFR (Non-Af Amer) 51.5 BUN/Creatinine Ratio 19.2 (10-20) Glucose 125 H (70-99) mg/dl POC Glucose (70-99) mg/dl Calcium 8.4 L (8.5-10.1) mg/dl Phosphorus 3.0 (2.5-4.9) mg/dl Magnesium 2.2 (1.8-2.4) mg/dl Total Bilirubin 0.7 (0.2-1) mg/dl Direct Bilirubin 0.2 (0-0.2) mg/dl AST 18 (15-37) U/L ALT 38 (12-78) U/L Alkaline Phosphatase 133 H (45-117) U/L Troponin I 0.525 H* 0.461 H* (0-0.045) ng/ml NT-Pro-B Natriuret Pep 4760 H (0-1800) pg/ml Total Protein 6.7 (6.4-8.2) gm/dl Albumin 3.0 L (3.4-5.0) gm/dl Globulin 3.7 (2.5-4.0) gm/dl Albumin/Globulin Ratio 0.8 L (0.9-2) Lipase 31 L (73-393) U/L 12/10/20 Range/Units 09:53 WBC (4.8-10.8) K/uL RBC (4.7-6.1) M/uL Hgb (14.0-18.0) g/dL Hct (42-52) % MCV (80-100) fL MCH (25-34) pg MCHC (32-36) g/dL RDW Std Deviation (36.4-46.3) fL RDW Coeff of Jaziel (11.5-14.5) % Plt Count (130-400) K/uL MPV (7.4-10.4) fL Immature Gran % (Auto) % Neut % (Auto) % Lymph % (Auto) % [place] % (Auto) % Eos % (Auto) % Baso % (Auto) % Neut # (Auto) (1.4-6.5) K/uL Lymph # (Auto) (1.2-3.4) K/uL [place] # (Auto) (0.11-0.59) K/uL Eos # (Auto) (0-0.5) K/uL Baso # (Auto) (0-0.2) K/uL Immature Gran # (Auto) (0.00-0.02) K/uL Sodium (136-145) mmol/L Potassium (3.5-5.1) mmol/L Chloride (98-107) mmol/L Carbon Dioxide (21-32) mmol/L Anion Gap (3-11) BUN (7-18) mg/dl Creatinine (0.6-1.4) mg/dl Est Cr Clr Drug Dosing ml/min Est GFR ( Amer) Est GFR (Non-Af Amer) BUN/Creatinine Ratio (10-20) Glucose (70-99) mg/dl POC Glucose 132 H (70-99) mg/dl Calcium (8.5-10.1) mg/dl Phosphorus (2.5-4.9) mg/dl Magnesium (1.8-2.4) mg/dl Total Bilirubin (0.2-1) mg/dl Direct Bilirubin (0-0.2) mg/dl AST (15-37) U/L ALT (12-78) U/L Alkaline Phosphatase (45-117) U/L Troponin I (0-0.045) ng/ml NT-Pro-B Natriuret Pep (0-1800) pg/ml Total Protein (6.4-8.2) gm/dl Albumin (3.4-5.0) gm/dl Globulin (2.5-4.0) gm/dl Albumin/Globulin Ratio (0.9-2) Lipase (73-393) U/L Administered Medications Lipase/Protease/Amylase (Pancreaze (Lipase 10,500u) Cap) 1 cap PO BID ARIAN Stop: 01/09/21 20:59 Last Admin: 12/10/20 20:56 Dose: 1 cap Documented by: [id number] Atorvastatin Calcium (Atorvastatin 20 Mg Tab) 20 mg PO QPM ARIAN Stop: 01/09/21 20:59 Last Admin: 12/10/20 20:55 Dose: 20 mg Documented by: [id number] Furosemide 40 mg/ Syringe 4 mls @ 4 mls/min IV [id number] ARIAN Stop: 01/09/21 16:59 Last Admin: 12/10/20 16:54 Dose: 4 mls/min Documented by: [id number] Insulin Aspart (Insulin Aspart 100 Units/Ml 3 Ml Pen) 0 units SC ACHS ARIAN Stop: 01/09/21 16:29 Last Admin: 12/10/20 21:18 Dose: Not Given Documented by: [id number] Cosigned by: [id number] Admin: 12/10/20 16:54 Dose: 17 units Documented by: [id number] Cosigned by: [id number] Metoprolol Succinate (Metoprolol Succ 50mg Ext Rel Tab) 200 mg PO QAM ARIAN Stop: 01/09/21 15:59 Last Admin: 12/10/20 16:54 Dose: 200 mg Documented by: [id number] Ranolazine (Ranolazine 500 Mg Er Tab) 500 mg PO BID [facility] Stop: 01/09/21 20:59 Last Admin: 12/10/20 20:55 Dose: 500 mg Documented by: [id number] Discontinued Medications Al Hydrox/Mg Hydrox/Simethicone (Gi Cocktail Ed Use) 1 dose PO ONE ONE Stop: 12/10/20 08:45 Last Admin: 12/10/20 09:26 Dose: 1 dose Documented by: [id number] Furosemide (Furosemide 40 Mg/4 Ml Vial) 40 mg IV NOW STA Stop: 12/10/20 11:37 Last Admin: 12/10/20 12:22 Dose: 40 mg Documented by: [id number] Famotidine (Pepcid 20mg Iv Push) 20 mg in 5 mls @ 2.5 mls/min IV NOW STA Stop: 12/10/20 06:46 Last Admin: 12/10/20 07:05 Dose: 2.5 mls/min Documented by: [id number] Insulin Human NPH (Insulin Human Nph) 40 units SC ONE ONE Stop: 12/10/20 17:31 Last Admin: 12/10/20 17:53 Dose: 40 units Documented by: [id number] Cosigned by: [id number] Ioversol (Ioversol 100ml) 94 ml IV ONCE ONE Stop: 12/10/20 08:23 Last Admin: 12/10/20 08:23 Dose: 94 ml Documented by: [id number] Metoclopramide HCl (Metoclopramide Hcl Inj 5 Mg/Ml 2 Ml Vial) 5 mg IV NOW STA Stop: 12/10/20 06:47 Last Admin: 12/10/20 07:05 Dose: 5 mg Documented by: [id number] Sucralfate (Sucralfate 1 Gm/10 Ml Udc) 1 gm PO NOW STA Stop: 12/10/20 11:37 Last Admin: 12/10/20 12:20 Dose: 1 gm Documented by: [id number] Discharge Plan Visit Data Chief Complaint: Abdominal Pain Stated Complaint: ABDMOMINAL PAIN ED Provider: Kayode Moe Discharge Problem: Substernal chest pain, Epigastric abdominal pain, Elevated troponin, CHF (congestive heart failure) Patient Disposition: Admitted As Inpatient Discharge Instructions Interventions: ED Discharge Assessment Last Done: 12/10/20 15:01 Discharge Problem: CHF (congestive heart failure) Qualifiers: Heart failure type: unspecified Heart failure chronicity: acute on chronic Qualified Code(s): I50.9 - Heart failure, unspecified
[2020-12-10 07:41] LABS: BUN Creatinine Ratio 19.2 (10-20); Bilirubin Direct 0.2 mg/dl (0-0.2); Calcium 8.4 mg/dl (8.5-10.1); Creatinine Clr Calc Pharmacy 50.9 ml/min; Est GFR (African American) 59.7; Est GFR (Non-African American) 51.5; Magnesium 2.2 mg/dl (1.8-2.4); Potassium 4.3 mmol/L (3.5-5.1)
[2020-12-10 07:54] LABS: Albumin Globulin Ratio 0.8 (0.9-2); Bilirubin,Total 0.7 mg/dl (0.2-1); Globulin 3.7 gm/dl (2.5-4.0); Total Protein 6.7 gm/dl (6.4-8.2); Troponin I 0.525 ng/ml (0-0.045)
[2020-12-10] MEDS ORDERED: IOVERSOL 100ml IV ONE (08:22)
--- NOTE | 2020-12-10 08:39 | CT Scan Report ---
ABDOMEN AND PELVIS CT WITH IV CONTRAST CT DOSE: 1199.04 mGy.cm HISTORY: upper abdominal pain TECHNIQUE: Multiaxial CT images of the abdomen and pelvis were performed following the use of intrave nous contrast. A dose lowering technique was utilized adhering to the principles of ALARA. COMPARISON STUDY: Abdomen and pelvis CT 12/03/2020. FINDINGS: : Imaged portions of the lower chest partially visualize moderate bilateral pleural effusio ns. Interlobular septal thickening indicates pulmonary edema. There are also groundglass opacities. C ardiomegaly is noted. This remains unchanged. No pneumatosis, free air or portal venous gas is presen t. The liver, spleen, and right kidney are unremarkable. There is no hydronephrosis. Stable bilateral adrenal gland nodularity. A water attenuation 7.4 cm lesion within the lower pole of the left kidney reflects a cyst. There is marked pancreatic glandular atrophy. There is no biliary or pancreatic charlie richy dilatation. There is no evidence for a bowel obstruction. Left colon diverticulosis is noted with out evidence for acute diverticulitis. The appendix is surgically absent. The prostate is surgically absent. There is no abnormality within the prostatectomy bed. There is no lymphadenopathy. No suspici ous skeletal lesions are present. There are multiple fat containing ventral hernias. No acute lumbar spine or pelvic fractures identified. Mild bilateral perinephric edema, unchanged. Chronic skin thick ening within the lower abdominal rader. IMPRESSION: 1. No significant change compared to the prior study. No acute process within the abdomen or pelvis. 2. Colonic diverticulosis without evidence for acute diverticulitis. 3. Partially visualized moderate bilateral pleural effusions with evidence for pulmonary edema. Groun d glass opacities favor atelectasis or edema although superimposed infectious process could appear si milar. 4. Status post prostatectomy. ACT 112: Negative or not required by law. Electronically signed by: Denver Dunn M.D. 12/10/2020 8:37 AM
[2020-12-10] MEDS ORDERED: GI COCKTAIL ED USE PO ONE (08:44)
--- NOTE | 2020-12-10 08:53 | XRay Report ---
XR chest 1V portable HISTORY: Atypical Chest Pain COMPARISON: Chest 12/03/2020. FINDINGS: No pneumothorax. Poststernotomy changes. The heart remains mildly enlarged. Diffuse interst itial/vascular thickening and small bilateral pleural effusions persist. This favors pulmonary edema. Patchy densities within the left lower lung zone are also unchanged. IMPRESSION: 1. No change in the pulmonary edema and bilateral pleural effusions. 2. Patchy left lung base airspace opacities persist and may represent atelectasis or pneumonia. ACT 112: Negative or not required by law. Electronically signed by: Denver Dunn M.D. 12/10/2020 8:52 AM
[2020-12-10] MEDS ORDERED: SUCRALFATE 1 GM/10 ML UDC PO STA (11:36)
[2020-12-10] MEDS ORDERED: FUROSEMIDE 40 MG/4 ML VIAL IV STA (11:36)
--- NOTE | 2020-12-10 11:44 | Electrocardiogram Report ---
Test Reason : Blood Pressure : / mmHG Vent. Rate : 067 BPM Atrial Rate : 067 BPM P-R Int : 168 ms QRS Dur : 092 ms QT Int : 436 ms P-R-T Axes : 034 021 168 degrees QTc Int : 460 ms Poor data quality, interpretation may be adversely affected Normal sinus rhythm Possible Left atrial enlargement Left ventricular hypertrophy with repolarization abnormality Possible Inferior infarct , age undetermined Abnormal ECG When compared with ECG of 04-DEC-2020 06:46, Borderline criteria for Inferior infarct are now Present Confirmed by Abdirizak Parkinson ([id number]) on 12/10/2020 11:43:50 AM Referred By: REFERRED SELF Confirmed By:Abdirizak Parkinson
--- NOTE | 2020-12-10 13:30 | History & Physical Report ---
Date of Service December 10, 2020 Assessment & Plan (1) Acute on chronic diastolic (congestive) heart failure: Elevated proBNP. Chest x-ray with bilateral pulmonary edema and pleural effusions with fluid in the horizontal fissure similar to prior chest x-ray when he was diagnosed with congestive heart failure. Lasix 40 mg IV given in ER. We will continue 40 mg IV BID. Patient failed 40mg PO daily after last discharge therefore this should be increased once euvolemic. Low-salt, heart healthy, fluid restrict 1500 mL Daily weights Strict I's and O's (2) Right upper quadrant abdominal pain: Ultrasound liver pending Possible liver congestion from congestive heart failure however will consult GI to rule out GI cause. (3) CAD (coronary artery disease): STEMI in September 2020. Patient with widely patent ANURADHA to LAD, TESFAYE to first diagonal. Culprit lesion with acute on chronic occlusion of proximal circumflex with collaterals which was not amenable to PCI via TESFAYE. Also with residual mid LAD stenosis after the anastomosis not felt to be culprit lesion and elected for medical management of this. Continue dual antiplatelet therapy with aspirin echocardiogram. Continue metoprolol succinate 200 mg p.o. every morning, losartan 25 mg p.o. daily, atorvastatin 20 mg every afternoon With downtrending troponin do not suspect acute coronary syndrome however shortness of breath may represent anginal equivalent. (4) Diarrhea: Possibly secondary to pancreatic insufficiency. Continue pancreatic enzymes. (5) Pancreatic insufficiency: Continue pancreatic enzymes twice daily (6) Primary hypothyroidism: TSH WNL Continue levothyroxine 100 mcg p.o. daily (7) GERD without esophagitis: Continue pantoprazole 40mg PO daily (8) Diabetes mellitus, with long-term current use of insulin: HbA1C 8.4 in Nov. No need to repeat this. Consult pharmacy for glycemic control. (9) DVT prophylaxis: Deferred given likely short duration of stay Admission and Anticipated Discharge Date Admission Date: Dec 10, 2020 History of Present Illness Chief Complaint: RUQ pain Primary Care Provider: Abraham Aguirre MD Law Ca is an 85 year old male with coronary artery disease and chronic congestive heart failure who presents to the ER with right upper quadrant abdominal pain. He was admitted from December 03 - December 05 with the same pain. At that time he was diagnosed with acute on chronic diastolic congestive heart failure and suspected his right upper quadrant pain was secondary to liver congestion. Liver enzymes have been normal, CT liver and gallbladder unremarkable although he has not had an ultrasound or HIDA scan previously. He reports his pain never fully went away but was much improved with diuresis on discharge. No chest pain, palpitations, presyncope or syncope. His weight has been slowly increasing since discharge although cannot give me a value on this. He has increased his lasix to total 80mg PO daily with worsening pain and no change to his shortness of breath in the last 2 days. He has been taking pepto- bismol for the pain without any change to his pain. He notes he is short of breath on exertion but this has been chronic and relatively at his baseline. In the ER he reports mild improvement with Maalox, famotidine and Carafate given in ER although still having significant pain. Reports having an EGD over 15 years ago but is unable to recall findings of this. Never had a colonoscopy previously. He has chronic diarrhea felt to be secondary to pancreatic insufficiency but started after his STEMI last year. He was recently started on pancreatic enzymes but reports not taking it for long enough to have seen a difference. He was referred to medicine for admission and ongoing management of abdominal pain. Allergies Allergy/AdvReac Type Severity Reaction Status Date / Time adhesive Allergy Mild RASH Verified 12/10/20 06:52 Penicillins Allergy Unknown RASH Unverified 12/10/20 06:52 Home Medications Medication Instructions Recorded Confirmed Type latanoprost 0.005 % eye drops 1 drops OP DAILY ml 07/14/19 12/10/20 History blood sugar diagnostic #180 ea 12/10/19 12/08/20 Rx insulin syringe-needle U-100 1 mL ea 05/25/20 12/08/20 History 31 gauge x 5/16" atorvastatin 20 mg tablet 20 mg PO QPM #90 tab 09/08/20 12/10/20 Rx aspirin 81 mg PO QAM #30 tab 09/19/20 12/10/20 Rx clopidogrel 75 mg tablet 75 mg PO QAM #90 tab 09/21/20 12/10/20 Rx ranolazine 500 mg tablet,extended 500 mg PO BID #180 tab 11/18/20 12/10/20 Rx release,12 hr Humulin N NPH U-100 Insulin 66 - 70 unit SQ AMPM 12/03/20 12/10/20 History Humulin R Regular U-100 Insuln 36 - 40 unit SQ AMPM 12/03/20 12/10/20 History levothyroxine 100 mcg PO QAM 12/03/20 12/10/20 History metoprolol succinate 200 mg PO QAM 12/03/20 12/10/20 History multivitamin [Daily Multi-Vitamin] 1 tab PO QAM 12/03/20 12/10/20 History pantoprazole [Protonix] 40 mg PO QAM 12/03/20 12/10/20 History potassium chloride [Klor-Con M10] 10 meq PO QAM 12/03/20 12/10/20 History vitamin B complex 1 tab PO QAM 12/03/20 12/10/20 History furosemide 40 mg PO QAM #90 tab 12/05/20 12/10/20 Rx coenzyme Q10 1 cap PO DAILY 12/07/20 12/10/20 History isosorbide mononitrate 60 mg 60 mg PO DAILY #30 tab 12/07/20 12/10/20 Rx tablet,extended release 24 hr nitroglycerin 0.4 mg sublingual 0.4 mg SUBLINGUAL PRN PRN #30 tab 12/07/20 12/10/20 Rx tablet [id number] 1 cap PO BID #60 cap 12/08/20 12/10/20 Rx 3,000-9,500-15,000 unit capsule,delayed releas losartan 25 mg tablet 25 mg PO DAILY #90 tab 12/08/20 12/10/20 Rx Past Med/Surg History Medical History (Updated 12/11/20 @ 10:29 by Jose Maria Sorto MD) Acute [place] CAD (coronary artery disease) Diabetes mellitus, with long-term current use of insulin Diabetic peripheral neuropathy Diarrhea Elevated prostate specific antigen (PSA) Epigastric abdominal pain GERD without esophagitis Glaucoma History of parotid cancer Hypercholesterolemia Hypertension Inferolateral myocardial infarction Ischemic cardiomyopathy Malignant neoplasm of prostate Mitral regurgitation Moderate to severe aortic stenosis Never smoker Osteoarthritis of hands, bilateral Osteoarthritis of left knee Primary hypothyroidism ST elevation [place] (STEMI) Tricuspid regurgitation Surgical History H/O transfusion of whole blood H/O varicose veins November 1970 History of genitourinary surgery 04/05/2003 S/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 Family History Brother Prostate cancer Family/Other Cancer Diabetes Heart disease Hypertension Denies family history of Colon cancer Ovarian cancer Myocardial infarction Breast cancer Social History Smoking Status: Never smoker Second Hand Exposure: No; Hx Alcohol Use: Yes Alcohol type: beer Hx Substance Use: No Preferred Language: Estonian Communication Ability: Effective Visual Impairment: No Limitations Hearing Ability: Normal Company Manager Required: No Beliefs That Will Affect Care: None marital status: / Current Living Situation: Alone current occupational status: retired Other Information That Helps Us Care for You: No Feels Safe at Home: Yes Safety Concerns: Feels Safe At This Time Childhood Exposure to Second-Hand Smoke: Yes Dental Care, Regularly: No Physical Activity Frequency: 3-4 Times per Week Seatbelt Use: always Sunscreen Use: No Assistive Devices: None Review of Systems Review of Systems: All systems reviewed & are unremarkable except as noted in HPI & below Physical Exam Constitutional: well developed, + acute distress (after walking back from the bathroom using accessory resp muscles) and + obese; + not well nourished Eyes: + anicteric sclerae; normal pupil size ENMT: external ear and nose normal, oropharynx normal Respiratory: + labored breathing (after exertion), + uses accessory muscles and able to speak in complete sentences; no cough Auscultation: + diminished lung sounds (bibasal) and + crackles (fine bases); no rales, no rhonchi and no wheezes Cardiovascular: Rate/Rhythm: regular rate Heart Sounds: + murmur (RUSB 2/6 systolic) Vessels: + JVD (visible to mid jaw) Extremities: normal capillary refill and + pedal edema (1+ pretibial equal b/l); no calf tenderness Gastrointestinal (Abdomen): Inspection/Auscultation: normal bowel sounds Percussion/Palpation: + abdomen tender (RUQ) and abdomen soft; no guarding and abdomen not rigid Musculoskeletal: no cyanosis or clubbing, extremities motor strength 5/5 Skin: no rashes, warm and dry (no areas of cellulitis) Neurologic: moves all extremities and awake; not confused Psychiatric: A+Ox3, euthymic affect Genitourinary: no CVA tenderness Results & Data Results & Data ([facility]) Vital Signs (Past 12 Hours) Vital Signs Temp Pulse Pulse Resp BP BP Pulse Ox 12/10/20 13:00 83 33 H 155/93 H 12/10/20 12:00 74 24 128/93 97 12/10/20 11:30 73 15 149/97 H 97 12/10/20 11:01 15 145/89 H 96 12/10/20 08:16 83 18 144/92 H 95 12/10/20 06:38 36.5 C 82 15 132/75 95 Diagnostic Findings XR chest 1V portable IMPRESSION: 1. No change in the pulmonary edema and bilateral pleural effusions. 2. Patchy left lung base airspace opacities persist and may represent atelectasis or pneumonia. ABDOMEN AND PELVIS CT WITH IV CONTRAST IMPRESSION: 1. No significant change compared to the prior study. No acute process within the abdomen or pelvis. 2. Colonic diverticulosis without evidence for acute diverticulitis. 3. Partially visualized moderate bilateral pleural effusions with evidence for pulmonary edema. Ground glass opacities favor atelectasis or edema although superimposed infectious process could appear similar. 4. Status post prostatectomy. Medications Administered ER Medications given: Lasix 40mg IV Carafate 1g PO Metoclopramide 5mg IV ECG Indication: abdominal pain Rate (beats per minute): 67 Rhythm: normal sinus Comparison ECG Date: from (Dec 04, 2020) Change: no significant change Code Status & VTE Plan Code Status DNR/DNI as discussed with the patient VTE Prophylaxis Plan VTE Prophylaxis will be ordered: No PG Care Time/CCT Total # of Minutes Spent Total Time Spent with Patient: Total time spent is greater than 50% in coordination of care (as documented) at patient's floor/unit and/or counseling patient: Coding Level of Care Code 75657 OBS Care - Level 3 Diagnoses Acute on chronic diastolic (congestive) heart failure I50.33 Right upper quadrant abdominal pain R10.11 CAD (coronary artery disease) I25.10 Diarrhea R19.7 Pancreatic insufficiency K86.89 Primary hypothyroidism E03.9 GERD without esophagitis K21.9 Diabetes mellitus, with long-term current use of insulin E11.9; Z79.4 DVT prophylaxis Z29.9
--- NOTE | 2020-12-10 13:48 | Ultrasound Report ---
US liver HISTORY: 85 years-old Male RUQ pain acute right upper quadrant abdominal pain COMPARISON: CT abdomen and pelvis of same day TECHNIQUE: Multiple real-time sonographic images of the abdominal right upper quadrant were obtained assessing grayscale appearance and color flow FINDINGS: Limited exam secondary to patient body habitus and obscuring bowel gas. Right-sided pleural effusion. Unremarkable liver. Unremarkable gallbladder without shadowing cholelit hiasis, wall thickening or pericholecystic fluid. Sonographic Rogers sign reported as negative. Bettina l common bile duct, 5 mm. Imaged right kidney is unremarkable without hydronephrosis. IMPRESSION: 1. No cholelithiasis or sonographic evidence of acute cholecystitis. 2. No biliary ductal dilation. ACT 112: Negative or not required by law. The above report was generated using voice recognition software. It may contain grammatical, syntax o r spelling errors. Electronically signed by: Chad Krause M.D. 12/10/2020 1:46 PM
[2020-12-10] MEDS ORDERED: ACETAMINOPHEN 325 MG TAB PO PRN (15:26)
[2020-12-10] MEDS ORDERED: ONDANSETRON INJ 2 MG/ML 2 ML VIAL IV PRN (15:26)
[2020-12-10] MEDS ORDERED: ALUMINUM/MAGNESIUM SUSP 30 ML UDC PO PRN (15:26)
[2020-12-10] MEDS ORDERED: PHARMACY GLYCEMIC MGMT CONSULT PRN (15:38)
[2020-12-10] MEDS ORDERED: CARBOHYDRATES FOR HYPOGLYCEMIA PO PRN (16:15)
[2020-12-10] MEDS ORDERED: GLUCOSE 10 TABS/TUBE PO PRN (16:15)
[2020-12-10] MEDS ORDERED: GLUCAGON FOR INJ 1 MG VIAL SQ PRN (16:15)
[2020-12-10] MEDS ORDERED: GLUCOSE 40% GEL 15 GM TUBE PO PRN (16:15)
[2020-12-10] MEDS ORDERED: DEXTROSE 50% 50 ML SYRINGE IV PRN (16:15)
[2020-12-10] MEDS: METOPROLOL SUCC 50MG EXT REL TAB PO SCH (16:54)
[2020-12-10] MEDS: FUROSEMIDE 40 MG in SYRINGE 0 ML IV SCH (16:54)
[2020-12-10] MEDS: INSULIN ASPART 100 UNITS/ML 3 ML PEN SC SCH ×2 (16:54→21:18)
[2020-12-10] MEDS ORDERED: FUROSEMIDE 40 MG/4 ML VIAL IV SCH (17:00)
[2020-12-10] MEDS ORDERED: INSULIN HUMAN NPH SC ONE (17:30)
--- NOTE | 2020-12-10 17:43 | Pharmacy Report ---
Pharmacy Glycemic Short Note 2 - Date of Service December 10, 2020 - Glycemic Short BSG Results (Last 24 hours): 12/10/20 12/10/20 12/10/20 07:10 09:53 16:53 Glucose 125 H POC Glucose 132 H 237 H OUTPATIENT ANTIDIABETIC REGIMEN: * NPH 70 units SQ qAM, 66 units qPM + regular insulin 40 units qAM, 36 units qPM * A1c = 8.4% (11/30/20) ASSESSMENT: * Law is a 85 yo T2DM admitted with acute on chronic CHF * His glucose was elevated at the time of consultation (232 mg/dL). Patient reports last taking insulin 2/6 PM therefore hyperglycemia is not surprising. * Based on data from previous admissions, he requires ~ 100 units/day of insulin when ordered a diet. * Will start patient on NPH + Novolog based on previous admission usage. PLAN FOR INPATIENT GLYCEMIC CONTROL: * Basal insulin * NPH 40 units SQ now * Further basal insulin dosing to be determined on 2/8 am * Bolus insulin * NovoLog per scale ACHS or Q6hrs while NPO * Goal Range: Low 110 mg/dL - High 140 mg/dL * Correction Factor: 15 mg/dL/unit * Nutritional / Prandial insulin per carb ratio of 1 unit per 4 grams CHO consumed * Add an overnight check at 0200
[2020-12-10] MEDS: RANOLAZINE 500 MG ER TAB PO SCH (20:55)
[2020-12-10] MEDS: ATORVASTATIN 20 MG TAB PO SCH (20:55)
[2020-12-10] MEDS: PANCREAZE (LIPASE 10,500U) CAP PO SCH (20:56)
[2020-12-11] MEDS ORDERED: MELATONIN 3 MG TAB PO PRN (01:17)
[2020-12-11] MEDS ORDERED: MELATONIN 3 MG TAB PO ONE (01:22)
[2020-12-11] MEDS ORDERED: INSULIN ASPART 100 UNITS/ML 3 ML PEN SC ONE (02:00)
[2020-12-11] MEDS: LEVOTHYROXINE SODIUM 100 MCG TABLET PO SCH (05:47)
[2020-12-11] MEDS: PANCREAZE (LIPASE 10,500U) CAP PO SCH ×2 (07:49→20:40)
[2020-12-11] MEDS: METOPROLOL SUCC 50MG EXT REL TAB PO SCH (07:50)
[2020-12-11] MEDS: RANOLAZINE 500 MG ER TAB PO SCH ×2 (07:50→20:39)
[2020-12-11] MEDS: LOSARTAN POTASSIUM 25 MG TAB PO SCH (07:50)
[2020-12-11] MEDS: MULTIVITAMIN TAB PO SCH (07:51)
[2020-12-11] MEDS: POTASSIUM CHLORIDE 10 MEQ TABCR PO SCH (07:51)
[2020-12-11] MEDS: PANTOprazole 40 MG TAB PO SCH (07:51)
[2020-12-11] MEDS: ASPIRIN 81 MG ECTAB PO SCH (07:51)
[2020-12-11] MEDS: CLOPIDOGREL BISULFATE 75 MG TAB PO SCH (07:52)
[2020-12-11] MEDS: ISOSORBIDE MONO EXTENDED REL 60 MG TABCR PO SCH (07:52)
[2020-12-11] MEDS: FUROSEMIDE 40 MG in SYRINGE 0 ML IV SCH ×2 (07:52→17:15)
[2020-12-11] MEDS: VITAMIN B COMPLEX TAB PO SCH (07:52)
[2020-12-11] MEDS: LATANOPROST 0.005% OP SOLN 2.5 ML BTL OP SCH (07:53)
[2020-12-11] MEDS: INSULIN ASPART 100 UNITS/ML 3 ML PEN SC SCH ×4 (07:59→20:38)
[2020-12-11] MEDS ORDERED: INSULIN HUMAN NPH SC ONE (08:15)
[2020-12-11] MEDS ORDERED: COENZYME Q10 PO SCH (09:00)
--- NOTE | 2020-12-11 09:24 | Hospitalist Progress Note ---
Date of Service December 11, 2020 Assessment & Plan (1) Acute on chronic diastolic (congestive) heart failure: Elevated proBNP. Chest x-ray with bilateral pulmonary edema and pleural effusions with fluid in the horizontal fissure similar to prior chest x-ray when he was diagnosed with congestive heart failure. Lasix 40 mg IV given in ER. We will continue 40 mg IV BID. Patient failed 40mg PO daily after last discharge therefore this should be increased once euvolemic. Low-salt, heart healthy, fluid restrict 1500 mL Daily weights Strict I's and O's Echo (12-04-) EF 50-55%, moderate to severe aortic stenosis, moderate mitral regurgitation 1-31 admit weight 109 kg 2-5 112.9 kg 2-8 109.6 kg CHF consult placed (2) Severe aortic stenosis: consulted CHF will also need cardiology consult to determine if TAVR candidate (3) Elevated troponin: likely supply demand mismatch in setting of CHF repeat troponin in morning check echo (4) Right upper quadrant abdominal pain: Ultrasound liver pending Possible liver congestion from congestive heart failure however will consult GI to rule out GI cause. 2-8 RUQ without cholelithiasis or cholecystitis, no CBD dilatation (5) CAD (coronary artery disease): STEMI in September 2020. Patient with widely patent ANURADHA to LAD, TESFAYE to first diagonal. Culprit lesion with acute on chronic occlusion of proximal circumflex with collaterals which was not amenable to PCI via TESFAYE. Also with residual mid LAD stenosis after the anastomosis not felt to be culprit lesion and elected for medical management of this. Continue dual antiplatelet therapy with aspirin echocardiogram. Continue metoprolol succinate 200 mg p.o. every morning, losartan 25 mg p.o. daily, atorvastatin 20 mg every afternoon With downtrending troponin do not suspect acute coronary syndrome however shortness of breath may represent anginal equivalent. (6) Diarrhea: Possibly secondary to pancreatic insufficiency. (7) Pancreatic insufficiency: Continue pancreatic enzymes twice daily (8) Primary hypothyroidism: TSH WNL Continue levothyroxine 100 mcg p.o. daily (9) GERD without esophagitis: Admission and Anticipated Discharge Date Admission Date: December 10, 2020 Subjective Shortness of breath has improved significantly. STOVALL has improved. LE edema continues to improve. Right sided chest pain has resolved completely. Took melatonin last night and slept for only 3 hours. Requesting an additional sleep aid tonight. Review of Systems Constitutional: no fever, no chills, no fatigue, no weakness, no anorexia, no weight loss and no weight gain Ear, Nose, Mouth, Throat: no nasal congestion, no sore throat and no dysphagia Respiratory: no cough and no dyspnea Cardiovascular: no chest pain, no dyspnea on exertion, no orthopnea and no palpitations Gastrointestinal: no abdominal pain, no nausea, no vomiting, no hematemesis, no dysphagia, no constipation, no diarrhea/loose stools, no blood in stools and no melena Genitourinary: no dysuria and no hematuria Musculoskeletal: no back pain, no joint pain, no myalgia and no muscle weakness Integumentary: no rash, no lesions, no skin ulcer, no erythema, no dry skin and no pruritus Neurologic: no falls, no localized weakness, no generalized weakness, no numbness, no paresthesia, no tremor(s) and no headache(s) Psychiatric: no depression, no suicidal ideation, no homicidal ideation and no anxiety Endocrine: no cold intolerance and no heat intolerance Hematologic / Lymphatic: no easy bleeding and no easy bruising Physical Exam Constitutional: well developed and well nourished; no acute distress Eyes: PERRL, conjunctivae normal, anicteric sclerae ENMT: Mouth: oral mucous membranes not dry Respiratory: normal respiratory effort; no respiratory distress and no labored breathing Auscultation: lungs clear to auscultation bilaterally; no crackles, no rales, no rhonchi and no wheezes Cardiovascular: Rate/Rhythm: regular rate and regular rhythm Heart Sounds: no murmur and no cardiac rub Vessels: normal peripheral pulses and radial pulses present; no JVD Extremities: + edema Gastrointestinal (Abdomen): Inspection/Auscultation: abdomen normal to inspection and normal bowel sounds; abdomen not distended Percussion/Palpation: abdomen soft; abdomen nontender, no guarding, abdomen not rigid and no hepatosplenomegaly Musculoskeletal: Head/Neck/Chest: normocephalic and head atraumatic Spine: no cervical spinal tenderness, no cervical muscular tenderness, no thoracic spinal tenderness and no lumbar spinal tenderness Skin: no rashes, warm and dry Neurologic: CN's II-XI intact bilaterally and moves all extremities Motor/Sensory: no tremor and no sensory deficit Psychiatric: Orientation: alert, oriented to person, oriented to place and oriented to time Apperance: appropriately groomed; not disheveled Affect: euthymic affect; no anxious affect and no tearful affect Genitourinary: no Vega catheter Results & Data Results & [facility] ([facility]) Vital Signs (Past 12 Hours) Vital Signs Temp Pulse Pulse Resp BP Pulse Ox 12/11/20 08:00 62 12/11/20 07:38 36.6 C 58 L 19 119/71 94 12/11/20 07:30 59 L 12/11/20 02:22 65 12/10/20 22:20 37 C 65 20 115/71 93 Laboratory Results Abnormal lab results 12/10/20 12/10/20 12/10/20 Range/Units 09:49 09:53 16:53 POC Glucose 132 H 237 H (70-99) mg/dl Troponin I 0.461 H* (0-0.045) ng/ml 12/10/20 Range/Units 20:50 POC Glucose 114 H (70-99) mg/dl Troponin I (0-0.045) ng/ml Medications Administered Current Inpatient Medications Acetaminophen (Acetaminophen 325 Mg Tab) 650 mg PO Q4H PRN PRN Reason: Pain or Fever Stop: 01/09/21 15:25 Al Hydrox/Mg Hydrox/Simethicone (Aluminum/Magnesium Susp 30 Ml Udc) 15 ml PO Q4H PRN PRN Reason: Dyspepsia Stop: 01/09/21 15:25 Lipase/Protease/Amylase (Pancreaze (Lipase 10,500u) Cap) 1 cap PO BID [facility] Stop: 01/09/21 20:59 Last Admin: 12/11/20 07:49 Dose: 1 cap Documented by: Aspirin (Aspirin 81 Mg Ectab) 81 mg PO QAM [facility] Stop: 01/10/21 08:59 Last Admin: 12/11/20 07:51 Dose: 81 mg Documented by: Atorvastatin Calcium (Atorvastatin 20 Mg Tab) 20 mg PO QPM [facility] Stop: 01/09/21 20:59 Last Admin: 12/10/20 20:55 Dose: 20 mg Documented by: Clopidogrel Bisulfate (Clopidogrel Bisulfate 75 Mg Tab) 75 mg PO QAM [facility] Stop: 01/10/21 08:59 Last Admin: 12/11/20 07:52 Dose: 75 mg Documented by: Dextrose (Dextrose 50% 50 Ml Syringe) 25 - 50 ml IV UD PRN; Protocol PRN Reason: Hypoglycemia Protocol Stop: 01/09/21 16:14 Glucagon (Glucagon For Inj 1 Mg Vial) 1 mg SQ UD PRN; Protocol PRN Reason: Hypoglycemia Protocol Stop: 01/09/21 16:14 Glucose (Glucose 40% Gel 15 Gm Tube) 15 - 30 gm PO UD PRN; Protocol PRN Reason: Hypoglycemia Protocol Stop: 01/09/21 16:14 Glucose (Glucose 10 Tabs/Tube) 4 - 8 tabs PO UD PRN; Protocol PRN Reason: Hypoglycemia Protocol Stop: 01/09/21 16:14 Furosemide 40 mg/ Syringe 4 mls @ 4 mls/min IV [id number] ARIAN Stop: 01/09/21 16:59 Last Admin: 12/11/20 07:52 Dose: 4 mls/min Documented by: Insulin Aspart (Insulin Aspart 100 Units/Ml 3 Ml Pen) 0 units SC ACHS ARIAN; Protocol Stop: 01/09/21 16:29 Last Admin: 12/11/20 07:59 Dose: 8 units Documented by: Isosorbide Mononitrate (Isosorbide [place] Extended Rel 60 Mg Tabcr) 60 mg PO DAILY ARIAN Stop: 01/10/21 08:59 Last Admin: 12/11/20 07:52 Dose: 60 mg Documented by: Latanoprost (Latanoprost 0.005% Op Soln 2.5 Ml Btl) 1 drops OP DAILY [facility] Stop: 01/10/21 08:59 Last Admin: 12/11/20 07:53 Dose: 1 drops Documented by: Levothyroxine Sodium (Levothyroxine Sodium 100 Mcg Tablet) 100 mcg PO DAILYBB [facility] Stop: 01/10/21 06:29 Last Admin: 12/11/20 05:47 Dose: 100 mcg Documented by: Losartan Potassium (Losartan Potassium 25 Mg Tab) 25 mg PO DAILY ARIAN Stop: 01/10/21 08:59 Last Admin: 12/11/20 07:50 Dose: 25 mg Documented by: Melatonin (Melatonin 3 Mg Tab) 3 mg PO HS PRN PRN Reason: Sleep Stop: 01/10/21 01:16 Last Admin: 12/11/20 01:58 Dose: 3 mg Documented by: Metoprolol Succinate (Metoprolol Succ 50mg Ext Rel Tab) 200 mg PO QAM [facility] Stop: 01/09/21 15:59 Last Admin: 12/11/20 07:50 Dose: 200 mg Documented by: Miscellaneous (Carbohydrates For Hypoglycemia ) 15 - 30 gm PO UD PRN PRN Reason: Hypoglycemia Treatment Stop: 01/09/21 16:14 Miscellaneous Information (Pharmacy Glycemic Mgmt Consult) 1 ea N/A UD PRN PRN Reason: Consult Stop: 01/09/21 15:37 Multivitamins (Multivitamin Tab) 1 tab PO QAM ARIAN Stop: 01/10/21 08:59 Last Admin: 12/11/20 07:51 Dose: 1 tab Documented by: Ondansetron HCl (Ondansetron Inj 2 Mg/Ml 2 Ml Vial) 4 mg IV Q6H PRN PRN Reason: Nausea Stop: 01/09/21 15:25 Pantoprazole Sodium (Pantoprazole 40 Mg Tab) 40 mg PO QAM [facility] Stop: 01/10/21 08:59 Last Admin: 12/11/20 07:51 Dose: 40 mg Documented by: Potassium Chloride (Potassium Chloride 10 Meq Tabcr) 10 meq PO QAM ARIAN Stop: 01/10/21 08:59 Last Admin: 12/11/20 07:51 Dose: 10 meq Documented by: Ranolazine (Ranolazine 500 Mg Er Tab) 500 mg PO BID [facility] Stop: 01/09/21 20:59 Last Admin: 12/11/20 07:50 Dose: 500 mg Documented by: Vitamin B Complex (Vitamin B Complex Tab) 1 tab PO QAM [facility] Stop: 01/10/21 08:59 Last Admin: 12/11/20 07:52 Dose: 1 tab Documented by: PG Care Time/CCT Total # of Minutes Spent Total Time Spent with Patient: Total time spent is greater than 50% in coordination of care (as documented) at patient's floor/unit and/or counseling patient: Coding Level of Care Code 03807 Subseq Hosp Care Lvl 3 Diagnoses Acute on chronic diastolic (congestive) heart failure I50.33 Severe aortic stenosis I35.0 Elevated troponin R77.8 Right upper quadrant abdominal pain R10.11 CAD (coronary artery disease) I25.10 Coronary Disease-Associated Artery/Lesion type: [place] artery [place] vs. transplanted heart: [place] heart Associated angina: angina presence unspecified Diarrhea R19.7 Diarrhea type: unspecified type Pancreatic insufficiency K86.89 Primary hypothyroidism E03.9 GERD without esophagitis K21.9 (1) CAD (coronary artery disease) Coronary Disease-Associated Artery/Lesion type: [place] artery [place] vs. transplanted heart: [place] heart Associated angina: angina presence unspecified Qualified Code(s): I25.10 - Atherosclerotic heart disease of [place] coronary artery without angina pectoris (2) Diarrhea Diarrhea type: unspecified type Qualified Code(s): R19.7 - Diarrhea, unspecified
--- NOTE | 2020-12-11 10:35 | Pharmacy Report ---
Pharmacy Glycemic Short Note 2 - Date of Service December 11, 2020 - Glycemic Short BSG Results (Last 24 hours): OUTPATIENT ANTIDIABETIC REGIMEN: * NPH 70 units SQ qAM, 66 units qPM + regular insulin 40 units qAM, 36 units qPM * A1c = 8.4% (11/30/20) ASSESSMENT: 12/11: * Patient received 40 units of NPH last evening around dinner and 17 units of Novolog with his meal. * BSG trended downward 232-114-76 mg/dL * Fasting BSG is 88 mg/dL this AM * This is below his goal range so will back off slightly on NPH dosing for today. * No changes to Novolog at this time 12/10: * Law is a 85 yo T2DM admitted with acute on chronic CHF * His glucose was elevated at the time of consultation (232 mg/dL). Patient reports last taking insulin 2/6 PM therefore hyperglycemia is not surprising. * Based on data from previous admissions, he requires ~ 100 units/day of insulin when ordered a diet. * Will start patient on NPH + Novolog based on previous admission usage. PLAN FOR INPATIENT GLYCEMIC CONTROL: * Basal insulin - decreased * NPH 25-35 units SQ BIDM (BSG < 140 mg/dL = 25 units; BSG 140-180 mg/dL = 30 units; BSG > 180 mg/dL = 35 units) * Bolus insulin - no change * NovoLog per scale ACHS or Q6hrs while NPO * Goal Range: Low 110 mg/dL - High 140 mg/dL * Correction Factor: 15 mg/dL/unit * Nutritional / Prandial insulin per carb ratio of 1 unit per 4 grams CHO consumed
[2020-12-11] MEDS: INSULIN HUMAN NPH SC SCH (17:14)
[2020-12-11] MEDS: ATORVASTATIN 20 MG TAB PO SCH (20:40)
[2020-12-11] MEDS ORDERED: MELATONIN 3 MG TAB PO SCH (21:00)
[2020-12-12] MEDS ORDERED: INSULIN ASPART 100 UNITS/ML 3 ML PEN SC SCH
[2020-12-12] MEDS: LEVOTHYROXINE SODIUM 100 MCG TABLET PO SCH (05:03)
[2020-12-12 06:39] LABS: Hematocrit (blood only) 37.4 % (42-52); Hemoglobin 12.6 g/dL (14.0-18.0); Mean Corpuscular Hgb Conc 33.7 g/dL (32-36); Mean Corpuscular Volume 86.2 fL (80-100); Mean Platelet Volume 9.7 fL (7.4-10.4); Platelet Count 307 K/uL (130-400); RDW Standard Deviation 47.4 fL (36.4-46.3); Red Blood Count 4.34 M/uL (4.7-6.1); White Blood Count 8.79 K/uL (4.8-10.8)
[2020-12-12 07:09] LABS: BUN Creatinine Ratio 25.4 (10-20); Creatinine Clr Calc Pharmacy 54.4 ml/min; Est GFR (African American) 63.3; Est GFR (Non-African American) 54.6; Magnesium 2.4 mg/dl (1.8-2.4); Potassium 3.7 mmol/L (3.5-5.1)
[2020-12-12 07:22] LABS: Phosphorus 3.7 mg/dl (2.5-4.9); Troponin I 0.145 ng/ml (0-0.045)
--- NOTE | 2020-12-12 08:23 | Discharge Summary ---
Date of Service December 12, 2020 Admission HPI Per Admitting Provider Law Ca is an 85 year old male with coronary artery disease and chronic congestive heart failure who presents to the ER with right upper quadrant abdominal pain. He was admitted from December 03 - December 05 with the same pain. At that time he was diagnosed with acute on chronic diastolic congestive heart failure and suspected his right upper quadrant pain was secondary to liver congestion. Liver enzymes have been normal, CT liver and gallbladder unremarkable although he has not had an ultrasound or HIDA scan previously. He reports his pain never fully went away but was much improved with diuresis on di scharge. No chest pain, palpitations, presyncope or syncope. His weight has been slowly increasing since discharge although cannot give me a value on this. He has increased his lasix to total 80mg PO daily with worsening pain and no change to his shortness of breath in the last 2 days. He has been taking pepto- bismol for the pain without any change to his pain. He notes he is short of breath on exertion but this has been chronic and relatively at his baseline. In the ER he reports mild improvement with Maalox, famotidine and Carafate given in ER although still having significant pain. Reports having an EGD over 15 years ago but is unable to recall findings of this. Never had a colonoscopy previously. He has chronic diarrhea felt to be secondary to pancreatic insufficiency but started after his STEMI last year. He was recently started on pancreatic enzymes but reports not taking it for long enough to have seen a difference. He was referred to medicine for admission and ongoing management of abdominal pain. Principal Diagnosis congestive heart failure severe aortic stenosis Discharge Exam Constitutional well developed and well nourished; no acute distress Eyes PERRL, conjunctivae normal, anicteric sclerae ENMT Mouth: oral mucous membranes not dry Respiratory normal respiratory effort; no respiratory distress and no labored breathing Auscultation: lungs clear to auscultation bilaterally; no crackles, no rales, no rhonchi and no wheezes Cardiovascular Rate/Rhythm: regular rate and regular rhythm Heart Sounds: no murmur and no cardiac rub Vessels: normal peripheral pulses and radial pulses present; no JVD Extremities: + edema Gastrointestinal (Abdomen) Inspection/Auscultation: abdomen normal to inspection and normal bowel sounds; abdomen not distended Percussion/Palpation: abdomen soft; abdomen nontender, no guarding, abdomen not rigid and no hepatosplenomegaly Musculoskeletal Head/Neck/Chest: normocephalic and head atraumatic Spine: no cervical spinal tenderness, no cervical muscular tenderness, no thoracic spinal tenderness and no lumbar spinal tenderness Skin no rashes, warm and dry Neurologic CN's II-XI intact bilaterally and moves all extremities Motor/Sensory: no tremor and no sensory deficit Psychiatric Orientation: alert, oriented to person, oriented to place and oriented to time Apperance: appropriately groomed; not disheveled Affect: euthymic affect; no anxious affect and no tearful affect Discharge Data Allergies Allergy/AdvReac Type Severity Reaction Status Date / Time adhesive Allergy Mild RASH Verified 12/10/20 06:52 Penicillins Allergy Unknown RASH Unverified 12/10/20 06:52 Consultations 12/10/20 11:37 ED Decision to Admit Stat 12/11/20 12:39 [facility] [place] [facility] Referral Routine Ordered Studies 12/10/20 06:45 CT abd pelvis IV con only Stat 12/10/20 12:55 US liver Stat Hospital Course (1) Acute on chronic diastolic (congestive) heart failure: Elevated proBNP. Chest x-ray with bilateral pulmonary edema and pleural effusions with fluid in the horizontal fissure similar to prior chest x-ray when he was diagnosed with congestive heart failure. Lasix 40 mg IV given in ER. We will continue 40 mg IV BID. Patient failed 40mg PO daily after last discharge therefore this should be increased once euvolemic. Low-salt, heart healthy, fluid restrict 1500 mL Daily weights Strict I's and O's Echo (2-) EF 50-55%, moderate to severe aortic stenosis, moderate mitral regurgitation 1-31 admit weight 109 kg 2-5 112.9 kg 2-8 109.6 kg CHF consult placed Patient asking to be discharged. Has less shortness of breath, no chest pain. Will follow up in CHF clinic. (2) Severe aortic stenosis: consulted CHF will also need cardiology consult to determine if TAVR candidate (3) Elevated troponin: likely supply demand mismatch in setting of CHF repeat troponin in morning (4) Right upper quadrant abdominal pain: Ultrasound liver pending Possible liver congestion from congestive heart failure however will consult GI to rule out GI cause. 2-8 RUQ without cholelithiasis or cholecystitis, no CBD dilatation (5) CAD (coronary artery disease): STEMI in September 2020. Patient with widely patent ANURADHA to LAD, TESFAYE to first diagonal. Culprit lesion with acute on chronic occlusion of proximal circumflex with collaterals which was not amenable to PCI via TESFAYE. Also with residual mid LAD stenosis after the anastomosis not felt to be culprit lesion and elected for medical management of this. Continue dual antiplatelet therapy with aspirin echocardiogram. Continue metoprolol succinate 200 mg p.o. every morning, losartan 25 mg p.o. daily, atorvastatin 20 mg every afternoon With downtrending troponin do not suspect acute coronary syndrome however shortness of breath may represent anginal equivalent. (6) Diarrhea: Possibly secondary to pancreatic insufficiency. (7) Pancreatic insufficiency: Continue pancreatic enzymes twice daily (8) Primary hypothyroidism: TSH WNL Continue levothyroxine 100 mcg p.o. daily (9) GERD without esophagitis: Total Time Total Time Spent Total Time Spent (In Minutes): 40 Total Time Includes: Examination of the Patient, Discharge Planning, Medication Reconciliation and Communication With Other Providers Discharge Plan Discharge Items Patient Disposition: Home - Self-Care Reason For Visit: ACUTE ON CHRONIC CHF Discharge Diagnosis: congestive heart failure Activity: Resume your previous activity Non-emergency contact: Primary Care Provider Call non-emergency contact if: you have any medication questions Follow-up/Referrals: Shola Trotter Jr, MD, FACC [Family Provider] - (follow up to discuss TAVR procedure) Abraham Aguirre MD [Primary Care Provider] - 12/20/20 11:20 am (If you need to change this appointment, please call [phone].) Naomi Farris PA-C [Physician Human Factors Advisor Lead] - 12/19/20 2:00 pm (Congestive Heart Failure Program Appointment Information Early follow up is essential to managing your heart failure. An appointment has been scheduled for you with the [facility] Heart Failure Program within 7 days of discharge. Anticipate this visit to be 30-60 minutes long. Please expect a it infrastructure specialist phone call from one of our nurses approximately 48 hours from discharge. They will also be placing an order for lab work to be completed 1-2 days prior to your heart failure follow up appointment. Please be sure to have this done so we can go over the results when you come in. Office Location The cardiology office building is located in front of the hospital at [address] Bring the following with you to your follow-up doctor appointments: Please bring your daily weight log any discharge paperwork all of your medication bottles with you to this visit. ) Diet: Carb Consistent or DM2 and Low Sodium (2gm) Addtl Attending Provider Instructions: You were treated for exacerbation of congestive heart failure Please continue to take your medications including your lasix as prescribed prior to admission Keep in close contact with Naomi Farris at the congestive heart failure clinic in order to help prevent shortness of breath and chest pain Naomi will be able to tell you when you need extra lasix doses Take lasix 40mg TWICE DAILY until you see Naomi in clinic Addtl Dialysis Tech Provider Instructions: Call 911 and go to the Emergency Room if: * You have tightness or pain in your chest that does not go away with rest or Nitroglycerin * You are very short of breath even with rest Call your doctor if any of the following symptoms or problems start or get worse: * Shortness of breath or difficulty breathing * Wake up at night short of breath * Chest pain * Cough * Swelling of your hands, fee, or legs * More fatigued or tired with your normal activity * Palpitations - sudden fast heart beats WEIGHT * Weigh yourself every morning after using the bathroom. * Use the same scale. * Wear the same amount of clothing. * Write your weight down on your chart. * Call your doctor if you gain more than 2-3 pounds in 1-2 days. MEDICATIONS * Use this discharge instruction sheet for instructions. * Take your medications at the time your doctor ordered. * Do not skip a dose of your medicines. * If you miss a dose of medicine, take as soon as possible, but DO NOT DOUBLE A DOSE. * Read your medicine information when you get home. * Know all of the side effects of your medicine. * Call your doctor's office if you have any side effects. * Be sure all of your doctors know what medicine and herbs you take (including cold, flu, and herbal medicine). * Pain Medicine: If you do not get relief from your pain, please call your doctor for help. Take the following with you to your follow-up doctor appointments: * Weight Chart * Medication List * List of questions Do not drink excessive alcohol, beer or wine. Pending Studies at Discharge: No Stand-Alone Forms: My [facility] [employer], Smoking Cessation Medications and DC Order Prescriptions: Continued (DME) OneTouch Ultra Blue Test Strip Strip See Rx Instructions .ROUTE .MEDSUPPLY Qty: 180 RF: 3 atorvastatin 20 mg tablet 20 mg PO QPM Qty: 90 RF: 3 ranolazine 500 mg tablet extended release 12 hr 500 mg PO BID Qty: 180 RF: 3 Creon 3,000-9,500- 15,000 unit capsule,delayed release(DR/EC) 1 cap PO BID Qty: 60 RF: 5 losartan 25 mg tablet 25 mg PO DAILY Qty: 90 RF: 3 coenzyme Q10 1 cap PO DAILY RF: 0 isosorbide mononitrate 60 mg tablet extended release 24 hr 60 mg PO DAILY Qty: 30 RF: 0 nitroglycerin [Nitrostat] 0.4 mg tablet, sublingual 0.4 mg sublingual PRN PRN (Reason: chest pain) Qty: 30 RF: 0 (DME) insulin syringe-needle U-100 [UltiCare] 1 mL 31 gauge x 5/16 syringe See Rx Instructions .ROUTE .MEDSUPPLY RF: 0 clopidogrel 75 mg tablet 75 mg PO QAM Qty: 90 RF: 6 latanoprost 0.005 % drops 1 drops OP DAILY RF: 0 multivitamin [Daily Multi-Vitamin] tablet 1 tab PO QAM RF: 0 metoprolol succinate 100 mg tablet extended release 24 hr 200 mg PO QAM RF: 0 levothyroxine 100 mcg tablet 100 mcg PO QAM RF: 0 pantoprazole [Protonix] 40 mg tablet,delayed release (DR/EC) 40 mg PO QAM RF: 0 Humulin R Regular U-100 Insuln 100 unit/mL solution 36 - 40 unit SQ AMPM RF: 0 Humulin N NPH U-100 Insulin 100 unit/mL suspension 66 - 70 unit SQ AMPM RF: 0 vitamin B complex tablet 1 tab PO QAM RF: 0 potassium chloride [Klor-Con M10] 10 mEq tablet,ER particles/crystals 10 meq PO QAM RF: 0 furosemide 20 mg tablet 40 mg PO QAM Qty: 90 RF: 3 aspirin 81 mg Tablet,Delayed Release (Dr/Ec) 81 mg PO QAM Qty: 30 RF: 6 Discharge Orders: Discharge Order (Routine); Ordered 12/12/20 Ordered By: Breana Correa/Other Patient Handouts: Diabetes Carbs Fats Protein, Eating Heart- Healthy Foods Admission Data Admit Date/Time: 12/10/20 13:08 Attending Provider: Breana Galvez Admit Provider: Jose Maria Sorto Primary Care Provider: Abraham Aguirre V. Other Providers: Jose Maria Sorto ; Naomi Farris Coding Level of Care Code D/C Day Management >30 mins Diagnoses Acute on chronic diastolic (congestive) heart failure I50.33 Severe aortic stenosis I35.0 Elevated troponin R77.8 Right upper quadrant abdominal pain R10.11 CAD (coronary artery disease) I25.10 Associated angina: angina presence unspecified Coronary Disease-Associated Artery/Lesion type: [place] artery [place] vs. transplanted heart: [place] heart Diarrhea R19.7 Diarrhea type: unspecified type Pancreatic insufficiency K86.89 Primary hypothyroidism E03.9 GERD without esophagitis K21.9
[2020-12-12] MEDS: METOPROLOL SUCC 50MG EXT REL TAB PO SCH (08:29)
[2020-12-12] MEDS: FUROSEMIDE 40 MG in SYRINGE 0 ML IV SCH (08:29)
[2020-12-12] MEDS: POTASSIUM CHLORIDE 10 MEQ TABCR PO SCH (08:29)
[2020-12-12] MEDS: ASPIRIN 81 MG ECTAB PO SCH (08:30)
[2020-12-12] MEDS: VITAMIN B COMPLEX TAB PO SCH (08:30)
[2020-12-12] MEDS: ISOSORBIDE MONO EXTENDED REL 60 MG TABCR PO SCH (08:30)
[2020-12-12] MEDS: PANTOprazole 40 MG TAB PO SCH (08:30)
[2020-12-12] MEDS: CLOPIDOGREL BISULFATE 75 MG TAB PO SCH (08:30)
[2020-12-12] MEDS: MULTIVITAMIN TAB PO SCH (08:30)
[2020-12-12] MEDS: PANCREAZE (LIPASE 10,500U) CAP PO SCH (08:31)
[2020-12-12] MEDS: LOSARTAN POTASSIUM 25 MG TAB PO SCH (08:31)
[2020-12-12] MEDS: LATANOPROST 0.005% OP SOLN 2.5 ML BTL OP SCH (08:31)
[2020-12-12] MEDS: RANOLAZINE 500 MG ER TAB PO SCH (08:31)
--- NOTE | 2020-12-12 08:31 | Heart Failure Consultation ---
Date of Consultation December 12, 2020 Assessment & Plan (1) Acute on chronic diastolic (congestive) heart failure: (2) Severe aortic stenosis: (3) CAD (coronary artery disease): (4) Chronic kidney disease, stage 3a: (5) Tricuspid regurgitation: Patient is likely still slightly hypervolemic today. He did get a dose of IV Lasix this am. Anticipate continued diuresis at home. Patient previously failed 40 mg once daily but also admitted to dietary indiscretion. Recommend Lasix 40 mg BID on discharge. Plan on BMP, mag, ProBNP next week. Continue close monitoring to avoid over-diurese in the setting of aortic stenosis. Continue daily standing weights at home. Notify HF program of 2+ lb weight gain overnight or 5+ lb in 1 week. Recommend low sodium diet, less than 2,000 mg daily. Will need ongoing education. Discussed the nature of heart failure and the goals of the program. He is agreeable to participation. If patient continues to decompensate, would consider referral for TAVR evaluation. Follow up 12/19 at 2:00pm. History of Present Illness Attending Physician: Breana Galvez MD Mr. Ca is an 85 year old male with past history of aortic stenosis, CAD, HTN, hypercholesterolemia, ischemic cardiomyopathy (EF now 50-55%), chronic diastolic CHF, DM, hypothyroidism, history of DVT. Dr. Trotter is his primary restaurant cook. Recent cardiac studies: 1. 12/04/20 Echo: LVSF is normal, EF 50-55%. No RWMA. Mild LVH. Moderate-severe . Moderate MRJac Patient was admitted 12/03/20 through 12/05/20 for acute on chronic diastolic CHF. He presented with abdominal pain and shortness of breath. Pain was worse with laying flat. Echocardiogram demonstrates improved EF. He was clinically and radiographically hypervolemic. He was treated with IV diuretics and his pulmonary symptoms improved. Abdominal CT unremarkable. LFTs normal. Lasix was increased from 20 mg to 40 mg daily on discharge. He was then re-admitted on 12/10/20. He presented with similar symptoms but mostly with RUQ abdominal pain. He was having some increased shortness of breath and edema at home since his previous hospitalization. He did increase his outpatient diuretic regimen without improvement. He admits to eating a hoagie the day prior to his admission. ProBNP elevated at 4760. CXR consistent with pulmonary edema with small bilateral pleural effusions. CT abdomen unremarkable. Liver ultrasound with no evidence of biliary ductal dilation or acute cholecystitis. He was responding well to IV diuretics. He was negative 1.8 L after 24 hours. Today he reports he's feeling significantly better. He's sitting up at the bedside. He reports his breathing is almost at baseline. His swelling is improving. His abdominal pain has resolved. He slept well with his head slightly elevated. He is net negative 4 L. Weight is 240 lb on standing scale this am. SocHx: Patient lives alone in [place]. He is independent. He is able to drive and manages his own medications. Allergies Allergy/AdvReac Type Severity Reaction Status Date / Time adhesive Allergy Mild RASH Verified 12/10/20 06:52 Penicillins Allergy Unknown RASH Unverified 12/10/20 06:52 Home Medications Medication Instructions Recorded Confirmed Type latanoprost 0.005 % eye drops 1 drops OP DAILY ml 07/14/19 12/10/20 History blood sugar diagnostic #180 ea 12/10/19 12/08/20 Rx insulin syringe-needle U-100 1 mL ea 05/25/20 12/08/20 History 31 gauge x 5/16" atorvastatin 20 mg tablet 20 mg PO QPM #90 tab 09/08/20 12/10/20 Rx aspirin 81 mg PO QAM #30 tab 09/19/20 12/10/20 Rx clopidogrel 75 mg tablet 75 mg PO QAM #90 tab 09/21/20 12/10/20 Rx ranolazine 500 mg tablet,extended 500 mg PO BID #180 tab 11/18/20 12/10/20 Rx release,12 hr Humulin N NPH U-100 Insulin 66 - 70 unit SQ AMPM 12/03/20 12/10/20 History Humulin R Regular U-100 Insuln 36 - 40 unit SQ AMPM 12/03/20 12/10/20 History levothyroxine 100 mcg PO QAM 12/03/20 12/10/20 History metoprolol succinate 200 mg PO QAM 12/03/20 12/10/20 History multivitamin [Daily Multi-Vitamin] 1 tab PO QAM 12/03/20 12/10/20 History pantoprazole [Protonix] 40 mg PO QAM 12/03/20 12/10/20 History potassium chloride [Klor-Con M10] 10 meq PO QAM 12/03/20 12/10/20 History vitamin B complex 1 tab PO QAM 12/03/20 12/10/20 History furosemide 40 mg PO QAM #90 tab 12/05/20 12/10/20 Rx coenzyme Q10 1 cap PO DAILY 12/07/20 12/10/20 History isosorbide mononitrate 60 mg 60 mg PO DAILY #30 tab 12/07/20 12/10/20 Rx tablet,extended release 24 hr nitroglycerin 0.4 mg sublingual 0.4 mg SUBLINGUAL PRN PRN #30 tab 12/07/20 12/10/20 Rx tablet [id number]-[id number] 1 cap PO BID #60 cap 12/08/20 12/10/20 Rx 3,000-9,500-15,000 unit capsule,delayed releas losartan 25 mg tablet 25 mg PO DAILY #90 tab 12/08/20 12/10/20 Rx Patient History Medical History (Updated 12/12/20 @ 12:27 by Naomi Farris PA-C) Acute [place] CAD (coronary artery disease) Diabetes mellitus, with long-term current use of insulin Diabetic peripheral neuropathy Diarrhea Elevated prostate specific antigen (PSA) Epigastric abdominal pain GERD without esophagitis Glaucoma History of parotid cancer Hypercholesterolemia Hypertension Inferolateral myocardial infarction Ischemic cardiomyopathy Malignant neoplasm of prostate Mitral regurgitation Moderate to severe aortic stenosis Never smoker Osteoarthritis of hands, bilateral Osteoarthritis of left knee Primary hypothyroidism ST elevation [place] (STEMI) Tricuspid regurgitation Surgical History H/O transfusion of whole blood H/O varicose veins November 1970 History of genitourinary surgery 04/05/2003 S/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 Family History Brother Prostate cancer Family/Other Cancer Diabetes Heart disease Hypertension Denies family history of Colon cancer Ovarian cancer Myocardial infarction Breast cancer Social History Smoking Status: Never smoker Second Hand Exposure: No; Hx Alcohol Use: Yes Alcohol type: beer Hx Substance Use: No Preferred Language: [place] Citizen Communication Ability: Effective Visual Impairment: No Limitations Hearing Ability: Normal Community Relations Director Required: No Beliefs That Will Affect Care: None marital status: / Current Living Situation: Alone current occupational status: retired Feels Safe at Home: Yes Childhood Exposure to Second-Hand Smoke: Yes Dental Care, Regularly: No Physical Activity Frequency: 3-4 Times per Week Seatbelt Use: always Sunscreen Use: No Assistive Devices: None Physical Exam Physical Exam: Constitutional: Alert, oriented, in no acute distress HEENT: Head is atraumatic and normocephalic. EOMs intact. Sclera anicteric. Face is symmetric. No perioral cyanosis. Mucous membranes moist. Neck: Supple, JVD noted just above the clavicle. +HJR Pulmonary: Normal respiratory effort, clear to auscultation bilaterally Cardiac: Regular rate and rhythm. Normal S1 and S2, no gallops, no rubs, 2/6 systolic murmur RSB Extremities: 2+ radial pulses bilaterally. 2+ posterior tibialis pulses bilaterally. 1+ bilateral pitting edema. No cyanosis or clubbing. Abdomen: Normal bowel sounds, soft, non-tender, no abdominal mass palpated Skin: Normal skin color, turgor, and pigmentation, no rash, no skin lesions Neurological: Patient is awake, alert, and oriented. Pleasant and cooperative. Answers questions appropriately. Speech is clear. Normal movement in all 4 extremities. Results & Data ([facility]) Vital Signs (Past 12 Hours) Vital Signs Temp Pulse Pulse Resp BP BP Pulse Ox 12/12/20 07:39 63 12/12/20 07:13 97.7 F 57 L 16 130/70 96 12/12/20 04:00 98.2 F 65 18 106/65 98 12/11/20 23:14 57 L 12/11/20 22:47 97.3 F L 65 18 97/58 L 95 Coding Level of Care Code 01508 Initial Inpt Care Lvl 3 Diagnoses Acute on chronic diastolic (congestive) heart failure I50.33 Severe aortic stenosis I35.0 CAD (coronary artery disease) I25.10 Associated angina: angina presence unspecified Coronary Disease-Associated Artery/Lesion type: [place] artery [place] vs. transplanted heart: [place] heart Chronic kidney disease, stage 3a N18.31 Tricuspid regurgitation I07.1 (1) CAD (coronary artery disease) Associated angina: angina presence unspecified Coronary Disease-Associated Artery/Lesion type: [place] artery [place] vs. transplanted heart: [place] heart Qualified Code(s): I25.10 - Atherosclerotic heart disease of [place] coronary artery without angina pectoris
[2020-12-12] MEDS: INSULIN HUMAN NPH SC SCH (08:33)
[2020-12-12] MEDS: INSULIN ASPART 100 UNITS/ML 3 ML PEN SC SCH ×2 (08:38→13:20)
[2020-12-12] MEDS ORDERED: OPTIRAY 320 125ml IV ONE (14:30)
--- NOTE | 2020-12-12 14:51 | CT Scan Report ---
CT ANGIOGRAM OF THE CHEST CLINICAL HISTORY: Chest pain and shortness of breath COMPARISON STUDY: Chest x-ray dated 12/10/2020 TECHNIQUE: Following the IV administration of 118 mL of Optiray-320, CT angiogram of the thorax was p erformed from the thoracic inlet to the lung bases utilizing the pulmonary embolus protocol. Images a re reviewed in the axial, sagittal, and coronal planes. IV contrast was administered without complica tion. MIP imaging was performed. A dose lowering technique was utilized adhering to the principles o f ALARA. CT DOSE: 834.65 mGy.cm FINDINGS: There is minor bilateral adrenal gland thickening. There is a mildly enlarged subcarinal lymph node measuring 15 mm. There are minimally enlarged right hilar lymph nodes. There was no evidence of thoracic aortic dilatation. There were no pulmonary artery filling defects to indicate acute pulmonary embolism. There are moderate bilateral pleural effusions. There is interlobular septal edema. There are patchy bilateral groundglass opacities, pulmonary edema versus superimposed multifocal pneumonia. Correlation with Covid 19 testing could be obtained as rachel med clinically appropriate. IMPRESSION: 1. No evidence of acute pulmonary embolism 2. Cardiomegaly, moderate bilateral pleural effusions, and interstitial pulmonary edema 3. Scattered bilateral groundglass opacities most pronounced within the right lung peripherally. Like ly diagnostic considerations include asymmetric pulmonary edema versus multifocal pneumonia. . Clinic al and radiographic follow-up is recommended 4. Mild adenopathy possibly reactive. ACT 112: Negative or not required by law. Electronically signed by: Solomon Oconnor M.D. 12/12/2020 2:50 PM
--- NOTE | 2020-12-12 14:53 | Pharmacy Report ---
Pharmacy Glycemic Short Note 2 - Date of Service December 12, 2020 - Glycemic Short BSG Results (Last 24 hours): OUTPATIENT ANTIDIABETIC REGIMEN: * NPH 70 units SQ qAM, 66 units qPM + regular insulin 40 units qAM, 36 units qPM * A1c = 8.4% (11/30/20) ASSESSMENT: 12/12: * Law received a total of 74 units of insulin yesterday * 50 units of basal + 24 units of bolus * BSGs over the last 24 hours ranged 59 - 119 mg/dL; mostly below goal * Patient was hypoglycemic and required 15 grams of carbs for treatment. Fortunately, patient was asymptomatic. * Fasting BSG this AM was 121 mg/dL - controlled * Decreased NPH scale today to provide a 10 - 20% reduction in basal insulin * CR was loosened last evening when patient became hypoglycemic 12/11: * Patient received 40 units of NPH last evening around dinner and 17 units of Novolog with his meal. * BSG trended downward 232-114-76 mg/dL * Fasting BSG is 88 mg/dL this AM * This is below his goal range so will back off slightly on NPH dosing for today. * No changes to Novolog at this time 12/10: * Law is a 85 yo T2DM admitted with acute on chronic CHF * His glucose was elevated at the time of consultation (232 mg/dL). Patient reports last taking insulin 2/6 PM therefore hyperglycemia is not surprising. * Based on data from previous admissions, he requires ~ 100 units/day of insulin when ordered a diet. * Will start patient on NPH + Novolog based on previous admission usage. PLAN FOR INPATIENT GLYCEMIC CONTROL: * Basal insulin - decreased 10-20% * NPH 20-25 units SQ BIDM (BSG < 160 mg/dL = 20 units; BSG 160 mg/dL or greater = 25 units) * Bolus insulin - loosened CR * NovoLog per scale ACHS or Q6hrs while NPO * Goal Range: Low 110 mg/dL - High 140 mg/dL * Correction Factor: 15 mg/dL/unit * Nutritional / Prandial insulin per carb ratio of 1 unit per 6 grams CHO consumed
== END 2020-12-12 16:15 | disposition home or self-care (01) ==
LOC: ED 06:24 → 2N 06:24 → SUATTDRO 13:08 → 2N 15:01

== ENCOUNTER 2020-12-18 08:37 | Inpatient (IN) ==
[2020-12-18 09:26] LABS: Basophils # (auto) 0.02 K/uL (0-0.2); Basophils % (auto) 0.2 %; Eosinophils # (auto) 0.03 K/uL (0-0.5); Eosinophils % (auto) 0.3 %; Hematocrit (blood only) 39.1 % (42-52); Hemoglobin 13.5 g/dL (14.0-18.0); Immature Granulocytes # (auto) 0.01 K/uL (0.00-0.02); Immature Granulocytes % (auto) 0.1 %; Lymphocytes # (auto) 0.88 K/uL (1.2-3.4); Lymphocytes % (auto) 9.5 %; Mean Corpuscular Hemoglobin 29.8 pg (25-34); Mean Corpuscular Hgb Conc 34.5 g/dL (32-36); Mean Corpuscular Volume 86.3 fL (80-100); Mean Platelet Volume 9.8 fL (7.4-10.4); Monocytes # (auto) 0.74 K/uL (0.11-0.59); Neutrophils # (auto) 7.55 K/uL (1.4-6.5); Neutrophils % (auto) 81.9 %; Platelet Count 343 K/uL (130-400); RDW Coefficient of Variation 14.6 % (11.5-14.5); RDW Standard Deviation 45.8 fL (36.4-46.3); Red Blood Count 4.53 M/uL (4.7-6.1); White Blood Count 9.23 K/uL (4.8-10.8)
[2020-12-18 09:35] LABS: INR 1.1 (0.9-1.1); Prothrombin Time 11.4 Seconds (9.0-12.0)
[2020-12-18 09:42] LABS: Albumin Level 3.1 gm/dl (3.4-5.0); Aspartate Aminotransferase 27 U/L (15-37); BUN Creatinine Ratio 15.2 (10-20); Blood Urea Nitrogen 20 mg/dl (7-18); Calcium 9.2 mg/dl (8.5-10.1); Carbon Dioxide 26 mmol/L (21-32); Chloride 92 mmol/L (98-107); Est GFR (African American) 58.6; Est GFR (Non-African American) 50.6; Glucose 277 mg/dl (70-99); Lipase 26 U/L (73-393); Magnesium 2.2 mg/dl (1.8-2.4); Potassium 4.5 mmol/L (3.5-5.1); Sodium 126 mmol/L (136-145)
[2020-12-18 09:52] LABS: Alanine Aminotransferase 39 U/L (12-78); Albumin Globulin Ratio 0.8 (0.9-2); Alkaline Phosphatase 148 U/L (45-117); Bilirubin,Total 0.7 mg/dl (0.2-1); Globulin 4.1 gm/dl (2.5-4.0); NT Pro B Type Natriuretic Pept 3355 pg/ml (0-1800); Phosphorus 3.6 mg/dl (2.5-4.9); Total Protein 7.2 gm/dl (6.4-8.2)
--- NOTE | 2020-12-18 09:55 | XRay Report ---
XR chest 1V portable HISTORY: Atypical Chest Pain COMPARISON: Chest 12/10/2020. FINDINGS: No pneumothorax. Trace bilateral pleural effusions. The heart remains enlarged. There are p oststernotomy changes. Diffuse interstitial/vascular thickening persists consistent with pulmonary ed samantha. Left basilar densities have slightly improved. IMPRESSION: 1. No significant change in the pulmonary edema and bilateral pleural effusions. 2. Left basilar densities have slightly improved. This could represent resolving atelectasis or pneum onia. ACT 112: Negative or not required by law. Electronically signed by: Denver Dunn M.D. 12/18/2020 9:54 AM
[2020-12-18] MEDS ORDERED: FUROSEMIDE 40 MG/4 ML VIAL IV STA (10:41)
--- NOTE | 2020-12-18 10:41 | Emergency Department Note ---
Impression & Plan Acute on chronic diastolic (congestive) heart failure, Elevated troponin, Antiplatelet or antithrombotic long-term use, Dyspnea on minimal exertion ED Provider Note NAME: RACHELLE ELIZABETH AGE: 85 SEX: M ARRIVES VIA: Walk-In INFORMANT: Patient, ED PROVIDER(S): Kayode Moe MD CHIEF COMPLAINT: Shortness of breath. PLAN: Disposition: Admit MEDICAL DECISION MAKING: The patient is a pleasant 85-year-old gentleman with a past medical history of CAD status post CABG, history of preserved EF heart failure, moderate to severe aortic stenosis, moderate MR, pulmonary hypertension, hyperlipidemia, DM2 on insulin, obesity, hypertension, hyperlipidemia who presents emergency department with worsening shortness of breath over the past several days where he reports he has increased weight gain and swelling in his legs despite taking his Lasix as prescribed. The patient reports he was at an outpatient appointment today and was recommended he come to the emergency department for evaluation. He denies any fevers, chills, cough, nausea, vomiting, diarrhea or urinary symptoms. Per patient records, patient had STEMI in September 2020 found to have chronic 100% distal left main occlusion, 100% proximal acute on chronic circumflex occl usion and 90% mid LAD stenosis after anastomosis of ANURADHA, 50 to 60% proximal mid RCA which was medically managed with volume management. Patient was admitted to [facility] from 12/03-12/05 for symptoms of substernal and epigastric pain. He was noted to have volume overload component of CHF. Patient did have a CT scan of his abdomen that was unremarkable. His echo from the hospitalization showed improved EF to 50-55%. Patient's pain did resolve following diuresis and so hepatic congestion was considered likely. He did have troponins peaked at 0.493 which was thought to be related to his volume overload/decompensated CHF. There is also admitted from 12/10-12/12 for recurrence of his epigastric pain/chest pain which resolved upon diuresis and further thought to be related to hepatic congestion. Troponin peaked at 0.525 during this admission. On arrival the patient is chronically ill-appearing, mildly dyspneic but no acute distress, afebrile with stable vital signs. He does appear volume overl oaded with 1+ bilateral lower extremity edema and is diminished at the bases. EKG appears similar to prior and shows LVH with repolarization abnormality without overt ST elevation. Chest x-ray without significant change in pulmonary edema or bilateral pleural effusions and shows slightly improved left basilar densities. WBC and platelets within normal limits. H/H 13.5/39.1 similar to prior range of values. Chemistry without metabolic acidosis. Sodium slightly low at 126 though does correct to~130 given the patient's hyperglycemia of 277. Electrolytes LFTs unremarkable. The patient's initial troponin was 2.6 which is appreciably increased from his previous stable mild troponin elevations. BNP 3300 approximate to recent values. COVID-19 RNA NAAT test negative. The patient denies any chest pain, exertional or otherwise, since his last admission, and so suspect patient's troponin elevation is likely related to the patient's volume overload given he reports increased weight gain and today does weigh 115 kg is increased from previous admissions of 109kg and 110kg, respectively. I did review the patient's ED visit with ALEXANDREA Agrawal with the heart failure clinic, who is familiar with the patient and scheduled to see the patient tomorrow. We did both agree that given the patient's elevated troponin which is increased from his recent values it is reasonable to admit the patient for further trending, diuresis and monitoring of his symptoms. Patient is agreeable with this plan. Case was discussed with Dr. Sorto, [facility] hospitalist, who will evaluate the patient for admission. Triage Nursing notes reviewed and agree them. Prior medical records reviewed Vital Signs: reviewed and remarkable for no significant abnormalities Differential diagnosis: Reactive airway disease, pneumonia, pneumothorax, COPD, CHF, infections, cardiac ischemia, pulmonary embolism, musculoskeletal, gastrointestinal, as well as other pathologies. ER treatment provided: See below. Diagnostics interpreted by me: ECG: Sinus rhythm, first-degree AV block, 80 bpm, no ectopy, LVH with repolarization abnormality, no overt ST elevation, QTc 465, QRS 102, similar to previous, 12/10/2019 Cardiac Monitoring: An order for continuous cardiac monitoring was placed and demonstrated Sinus rhythm, first-degree AV block, 80 bpm, no ectopy. Laboratory studies: See below Imaging studies: XR chest 1V portable HISTORY: Atypical Chest Pain COMPARISON: Chest 12/10/2020. FINDINGS: No pneumothorax. Trace bilateral pleural effusions. The heart remains enlarged. There are poststernotomy changes. Diffuse interstitial/vascular thickening persists consistent with pulmonary edema. Left basilar densities have slightly improved. IMPRESSION: 1. No significant change in the pulmonary edema and bilateral pleural effusions. 2. Left basilar densities have slightly improved. This could represent resolving atelectasis or pneumonia. ACT 112: Negative or not required by law. Consultation(s): ALEXANDREA Agrawal, [facility] Case was discussed with Dr. Sorto, [facility] hospitalist, who will evaluate the patient for admission. HPI: The patient is a pleasant 85-year-old gentleman with a past medical history of CAD status post CABG, history of preserved EF heart failure, moderate to severe aortic stenosis, moderate MR, pulmonary hypertension, hyperlipidemia, DM2 on insulin, obesity, hypertension, hyperlipidemia who presents emergency department with worsening shortness of breath over the past several days where he reports he has increased weight gain and swelling in his legs despite taking his Lasix as prescribed. The patient reports he was at an outpatient appointment today and was recommended he come to the emergency department for evaluation. He denies any fevers, chills, cough, nausea, vomiting, diarrhea or urinary symptoms. ROS: See above HPI for pertinent positives & negatives. A total of 10 systems reviewed and were otherwise negative. PAST MEDICAL HISTORY:See Below PAST SURGICAL HISTORY:See Below FAMILY HISTORY:See Below SOCIAL HISTORY:See Below HOME MEDICATIONS:See Below ALLERGIES:See Below VITALS:See Below PHYSICAL EXAMINATION: GENERAL: Awake, alert, chronically ill-appearing, in no distress HENT: Normocephalic, atraumatic. Oropharynx unremarkable. EYES: Normal conjunctiva. Sclera non-icteric. NECK: Supple. No nuchal rigidity. FROM. No JVD. RESPIRATORY: Diminished breath sounds at the bases and otherwise, clear to auscultation. CARDIAC: Regular rate, normal rhythm. Extremities warm and well perfused. Pulses equal. ABDOMEN: Soft, non-distended. No tenderness to palpation. No rebound or guarding. No masses. RECTAL: Deferred. MUSCULOSKELETAL: Chest examination reveals no tenderness. The back is symmetrical on inspection without obvious abnormality. There is no CVA tenderness to palpation. No joint edema. LOWER EXTREMITIES: Calves are equal size bilaterally and non-tender. 1+ BLE edema. No discoloration. NEURO: Normal sensorium. No sensory or motor deficits noted. SKIN: No rash or jaundice noted. ED COURSE: Critical Care: I have personally spent greater than 35 minutes of critical care time in the dir ect management of this patient. This includes bedside care, interpretation of diagnostic studies, and testing, discussion with consultants, patient, and family members, and other required patient management activities. This 35 minutes is in excess of all separately billable procedures. Kayode Moe MD Past Med/Surg History Medical History Acute [place] CAD (coronary artery disease) Diabetes mellitus, with long-term current use of insulin Diabetic peripheral neuropathy Diarrhea Elevated prostate specific antigen (PSA) Epigastric abdominal pain GERD without esophagitis Glaucoma History of parotid cancer Hypercholesterolemia Hypertension Inferolateral myocardial infarction Ischemic cardiomyopathy Malignant neoplasm of prostate Mitral regurgitation Moderate to severe aortic stenosis Never smoker Osteoarthritis of hands, bilateral Osteoarthritis of left knee Primary hypothyroidism ST elevation [place] (STEMI) Tricuspid regurgitation Surgical History H/O transfusion of whole blood H/O varicose veins November 1970 History of genitourinary surgery Prostatectomy 04/05/2003 S/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 Family History Brother Prostate cancer Family/Other Cancer Diabetes Heart disease Hypertension Denies family history of Colon cancer Ovarian cancer Myocardial infarction Breast cancer Social History Smoking Status: Never smoker Second Hand Exposure: No; Hx Alcohol Use: Yes Alcohol type: beer Hx Substance Use: No Preferred Language: Amharic Communication Ability: Effective Visual Impairment: No Limitations Hearing Ability: Normal Santa'S Helper Required: No Beliefs That Will Affect Care: None marital status: / Current Living Situation: Alone current occupational status: retired Feels Safe at Home: Yes Childhood Exposure to Second-Hand Smoke: Yes Dental Care, Regularly: No Physical Activity Frequency: 3-4 Times per Week Seatbelt Use: always Sunscreen Use: No Assistive Devices: None Allergies Allergies Allergy/AdvReac Type Severity Reaction Status Date / Time adhesive Allergy Mild RASH Verified 12/18/20 10:49 Penicillins Allergy Unknown RASH Unverified 12/18/20 10:49 Home Meds Home Medications Medication Instructions Recorded Confirmed latanoprost 0.005 % eye drops 1 drops OP DAILY ml 07/14/19 12/18/20 insulin syringe-needle U-100 1 mL ea 05/25/20 12/18/20 31 gauge x /16" Humulin N NPH U-100 Insulin 66 - 70 unit SQ AMPM 12/03/20 12/18/20 Humulin R Regular U-100 Insuln 36 - 40 unit SQ AMPM 12/03/20 12/18/20 levothyroxine 100 mcg PO QAM 12/03/20 12/18/20 metoprolol succinate 200 mg PO QAM 12/03/20 12/18/20 multivitamin [Daily Multi-Vitamin] 1 tab PO QAM 12/03/20 12/18/20 pantoprazole [Protonix] 40 mg PO QAM 12/03/20 12/18/20 potassium chloride [Klor-Con M10] 10 meq PO QAM 12/03/20 12/18/20 vitamin B complex 1 tab PO QAM 12/03/20 12/18/20 coenzyme Q10 1 cap PO DAILY 12/07/20 12/18/20 aspirin 81 mg PO QPM 12/18/20 12/18/20 clopidogrel 75 mg PO QPM 12/18/20 12/18/20 furosemide 40 mg PO QPM 12/18/20 12/18/20 furosemide 60 mg PO QAM 12/18/20 12/18/20 Previous Rx's Medication Instructions Recorded blood sugar diagnostic #180 ea 12/10/19 atorvastatin 20 mg tablet 20 mg PO QPM #90 tab 09/08/20 ranolazine 500 mg tablet,extended 500 mg PO BID #180 tab 11/18/20 release,12 hr isosorbide mononitrate 60 mg 60 mg PO DAILY #30 tab 12/07/20 tablet,extended release 24 hr nitroglycerin 0.4 mg sublingual 0.4 mg SUBLINGUAL PRN PRN #30 tab 12/07/20 tablet [id number] 1 cap PO BID #60 cap 12/08/20 3,000-9,500-15,000 unit capsule,delayed releas losartan 25 mg tablet 25 mg PO DAILY #90 tab 12/08/20 Results & Data (ED) Vital Signs Vital Signs - 24 hr 12/18/20 08:52 12/18/20 09:30 12/18/20 10:13 Temperature 36.5 C Temperature Source Oral Pulse Rate 75 Pulse Rate [Apical] 67 67 Pulse Rhythm Regular Pulse Rhythm [Apical] Regular Regular Pulse Strength Normal Pulse Strength [Apical] Normal Normal Respiratory Rate 22 22 22 Respiratory Effort / Characteristics Non-Labored Spontaneous Non-Labored Spontaneous Non-Labored Spontaneous Respiratory Depth Normal Normal Normal Respiratory Pattern Regular Regular Regular Blood Pressure 149/95 H Blood Pressure [Left Arm] 128/69 112/68 Blood Pressure Mean 113 Blood Pressure Mean [Left Arm] 88 82 Blood Pressure Position Sitting Blood Pressure Position [Left Arm] Sitting Sitting Pulse Oximetry 96 98 97 Oxygen Delivery Method Room Air Room Air Room Air Sepsis Recent Fever Within 48 Hours No Sepsis New/Unexplained Change in Mental Status No Sepsis Action Taken by Nursing No Action Required 12/18/20 11:01 12/18/20 12:05 12/18/20 13:09 Temperature Temperature Source Pulse Rate 59 L Pulse Rate [Apical] 66 66 59 L Pulse Rhythm Regular Pulse Rhythm [Apical] Regular Regular Regular Pulse Strength Pulse Strength [Apical] Normal Normal Normal Respiratory Rate 22 24 20 Respiratory Effort / Characteristics Non-Labored Spontaneous Non-Labored Spontaneous Non-Labored Spontaneous Respiratory Depth Normal Normal Normal Respiratory Pattern Regular Regular Regular Blood Pressure Blood Pressure [Left Arm] 138/78 119/65 98/61 L Blood Pressure Mean Blood Pressure Mean [Left Arm] 98 83 73 Blood Pressure Position Blood Pressure Position [Left Arm] Sitting Sitting Sitting Pulse Oximetry 99 97 97 Oxygen Delivery Method Room Air Room Air Room Air Sepsis Recent Fever Within 48 Hours Sepsis New/Unexplained Change in Mental Status Sepsis Action Taken by Nursing Laboratory Data Attestation: I reviewed the patient's lab results. Result diagrams: 12/18/20 09:08 12/18/20 09:08 Lab Results 12/18/20 12/18/20 12/18/20 Range/Units 09:08 09:08 09:08 WBC 9.23 (4.8-10.8) K/uL RBC 4.53 L (4.7-6.1) M/uL Hgb 13.5 L (14.0-18.0) g/dL Hct 39.1 L (42-52) % MCV 86.3 (80-100) fL MCH 29.8 (25-34) pg MCHC 34.5 (32-36) g/dL RDW Std Deviation 45.8 (36.4-46.3) fL RDW Coeff of Jaziel 14.6 H (11.5-14.5) % Plt Count 343 (130-400) K/uL MPV 9.8 (7.4-10.4) fL Immature Gran % (Auto) 0.1 % Neut % (Auto) 81.9 % Lymph % (Auto) 9.5 % [place] % (Auto) 8.0 % Eos % (Auto) 0.3 % Baso % (Auto) 0.2 % Neut # (Auto) 7.55 H (1.4-6.5) K/uL Lymph # (Auto) 0.88 L (1.2-3.4) K/uL [place] # (Auto) 0.74 H (0.11-0.59) K/uL Eos # (Auto) 0.03 (0-0.5) K/uL Baso # (Auto) 0.02 (0-0.2) K/uL Immature Gran # (Auto) 0.01 (0.00-0.02) K/uL PT 11.4 (9.0-12.0) Seconds INR 1.1 (0.9-1.1) Sodium 126 L (136-145) mmol/L Potassium 4.5 (3.5-5.1) mmol/L Chloride 92 L (98-107) mmol/L Carbon Dioxide 26 (21-32) mmol/L Anion Gap 8.0 (3-11) BUN 20 H (7-18) mg/dl Creatinine 1.29 (0.6-1.4) mg/dl Est Cr Clr Drug Dosing Not Reportable Est GFR ( Amer) 58.6 Est GFR (Non-Af Amer) 50.6 BUN/Creatinine Ratio 15.2 (10-20) Glucose 277 H (70-99) mg/dl Osmolality (280-300) mOsm/kg Calcium 9.2 (8.5-10.1) mg/dl Phosphorus 3.6 (2.5-4.9) mg/dl Magnesium 2.2 (1.8-2.4) mg/dl Total Bilirubin 0.7 (0.2-1) mg/dl AST 27 (15-37) U/L ALT 39 (12-78) U/L Alkaline Phosphatase 148 H (45-117) U/L Troponin I 2.650 H* (0-0.045) ng/ml NT-Pro-B Natriuret Pep 3355 H (0-1800) pg/ml Total Protein 7.2 (6.4-8.2) gm/dl Albumin 3.1 L (3.4-5.0) gm/dl Globulin 4.1 H (2.5-4.0) gm/dl Albumin/Globulin Ratio 0.8 L (0.9-2) Lipase 26 L (73-393) U/L Procalcitonin (0-0.5) ng/ml Urine Osmolality (500-800) mOsm/kg Ur Random Sodium mmol/L COVID-19 Eval Order SARS-CoV-2, RNA, NAAT (NEGATIVE) 12/18/20 12/18/20 12/18/20 Range/Units 09:08 10:41 10:56 WBC (4.8-10.8) K/uL RBC (4.7-6.1) M/uL Hgb (14.0-18.0) g/dL Hct (42-52) % MCV (80-100) fL MCH (25-34) pg MCHC (32-36) g/dL RDW Std Deviation (36.4-46.3) fL RDW Coeff of Jaziel (11.5-14.5) % Plt Count (130-400) K/uL MPV (7.4-10.4) fL Immature Gran % (Auto) % Neut % (Auto) % Lymph % (Auto) % [place] % (Auto) % Eos % (Auto) % Baso % (Auto) % Neut # (Auto) (1.4-6.5) K/uL Lymph # (Auto) (1.2-3.4) K/uL [place] # (Auto) (0.11-0.59) K/uL Eos # (Auto) (0-0.5) K/uL Baso # (Auto) (0-0.2) K/uL Immature Gran # (Auto) (0.00-0.02) K/uL PT (9.0-12.0) Seconds INR (0.9-1.1) Sodium (136-145) mmol/L Potassium (3.5-5.1) mmol/L Chloride (98-107) mmol/L Carbon Dioxide (21-32) mmol/L Anion Gap (3-11) BUN (7-18) mg/dl Creatinine (0.6-1.4) mg/dl Est Cr Clr Drug Dosing Est GFR ( Amer) Est GFR (Non-Af Amer) BUN/Creatinine Ratio (10-20) Glucose (70-99) mg/dl Osmolality 277 L (280-300) mOsm/kg Calcium (8.5-10.1) mg/dl Phosphorus (2.5-4.9) mg/dl Magnesium (1.8-2.4) mg/dl Total Bilirubin (0.2-1) mg/dl AST (15-37) U/L ALT (12-78) U/L Alkaline Phosphatase (45-117) U/L Troponin I (0-0.045) ng/ml NT-Pro-B Natriuret Pep (0-1800) pg/ml Total Protein (6.4-8.2) gm/dl Albumin (3.4-5.0) gm/dl Globulin (2.5-4.0) gm/dl Albumin/Globulin Ratio (0.9-2) Lipase (73-393) U/L Procalcitonin 0.08 (0-0.5) ng/ml Urine Osmolality 295 L (500-800) mOsm/kg Ur Random Sodium mmol/L COVID-19 Eval Order SARS-CoV-2, RNA, NAAT (NEGATIVE) 12/18/20 12/18/20 12/18/20 Range/Units 10:56 11:46 11:46 WBC (4.8-10.8) K/uL RBC (4.7-6.1) M/uL Hgb (14.0-18.0) g/dL Hct (42-52) % MCV (80-100) fL MCH (25-34) pg MCHC (32-36) g/dL RDW Std Deviation (36.4-46.3) fL RDW Coeff of Jaziel (11.5-14.5) % Plt Count (130-400) K/uL MPV (7.4-10.4) fL Immature Gran % (Auto) % Neut % (Auto) % Lymph % (Auto) % [place] % (Auto) % Eos % (Auto) % Baso % (Auto) % Neut # (Auto) (1.4-6.5) K/uL Lymph # (Auto) (1.2-3.4) K/uL [place] # (Auto) (0.11-0.59) K/uL Eos # (Auto) (0-0.5) K/uL Baso # (Auto) (0-0.2) K/uL Immature Gran # (Auto) (0.00-0.02) K/uL PT (9.0-12.0) Seconds INR (0.9-1.1) Sodium (136-145) mmol/L Potassium (3.5-5.1) mmol/L Chloride (98-107) mmol/L Carbon Dioxide (21-32) mmol/L Anion Gap (3-11) BUN (7-18) mg/dl Creatinine (0.6-1.4) mg/dl Est Cr Clr Drug Dosing Est GFR ( Amer) Est GFR (Non-Af Amer) BUN/Creatinine Ratio (10-20) Glucose (70-99) mg/dl Osmolality (280-300) mOsm/kg Calcium (8.5-10.1) mg/dl Phosphorus (2.5-4.9) mg/dl Magnesium (1.8-2.4) mg/dl Total Bilirubin (0.2-1) mg/dl AST (15-37) U/L ALT (12-78) U/L Alkaline Phosphatase (45-117) U/L Troponin I (0-0.045) ng/ml NT-Pro-B Natriuret Pep (0-1800) pg/ml Total Protein (6.4-8.2) gm/dl Albumin (3.4-5.0) gm/dl Globulin (2.5-4.0) gm/dl Albumin/Globulin Ratio (0.9-2) Lipase (73-393) U/L Procalcitonin (0-0.5) ng/ml Urine Osmolality (500-800) mOsm/kg Ur Random Sodium 10 mmol/L COVID-19 Eval Order Covid19 IDNow atMTNC SARS-CoV-2, RNA, NAAT NEGATIVE (NEGATIVE) Administered Medications Discontinued Medications Aspirin (Aspirin Chew 324 Mg) 324 mg PO NOW STA Stop: 12/18/20 11:27 Last Admin: 12/18/20 11:43 Dose: 324 mg Documented by: [id number] Furosemide (Furosemide 40 Mg/4 Ml Vial) 40 mg IV NOW STA Stop: 12/18/20 10:42 Last Admin: 12/18/20 10:55 Dose: 40 mg Documented by: [id number] Discharge Plan Visit Data Chief Complaint: Swelling/Edema to Extremity Stated Complaint: HOLDING FLUID,HEART FAILURE,O2 IS LOW ED Provider: Kayode Moe Discharge Problem: Acute on chronic diastolic (congestive) heart failure, Elevated troponin, Antiplatelet or antithrombotic long-term use, Dyspnea on minimal exertion Forms Stand Alone Forms: [facility] [employer] Prescriptions Prescriptions: No Action (DME) OneTouch Ultra Blue Test Strip Strip See Rx Instructions .ROUTE .MEDSUPPLY Qty: 180 RF: 3 atorvastatin 20 mg tablet 20 mg PO QPM Qty: 90 RF: 3 ranolazine 500 mg tablet extended release 12 hr 500 mg PO BID Qty: 180 RF: 3 Creon 3,000-9,500- 15,000 unit capsule,delayed release(DR/EC) 1 cap PO BID Qty: 60 RF: 5 losartan 25 mg tablet 25 mg PO DAILY Qty: 90 RF: 3 coenzyme Q10 1 cap PO DAILY RF: 0 isosorbide mononitrate 60 mg tablet extended release 24 hr 60 mg PO DAILY Qty: 30 RF: 0 nitroglycerin [Nitrostat] 0.4 mg tablet, sublingual 0.4 mg sublingual PRN PRN (Reason: chest pain) Qty: 30 RF: 0 (DME) insulin syringe-needle U-100 [UltiCare] 1 mL 31 gauge x 5/16 syringe See Rx Instructions .ROUTE .MEDSUPPLY RF: 0 latanoprost 0.005 % drops 1 drops OP DAILY RF: 0 multivitamin [Daily Multi-Vitamin] tablet 1 tab PO QAM RF: 0 metoprolol succinate 100 mg tablet extended release 24 hr 200 mg PO QAM RF: 0 levothyroxine 100 mcg tablet 100 mcg PO QAM RF: 0 pantoprazole [Protonix] 40 mg tablet,delayed release (DR/EC) 40 mg PO QAM RF: 0 Humulin R Regular U-100 Insuln 100 unit/mL solution 36 - 40 unit SQ AMPM RF: 0 Humulin N NPH U-100 Insulin 100 unit/mL suspension 66 - 70 unit SQ AMPM RF: 0 vitamin B complex tablet 1 tab PO QAM RF: 0 potassium chloride [Klor-Con M10] 10 mEq tablet,ER particles/crystals 10 meq PO QAM RF: 0 furosemide 20 mg Tablet 60 mg PO QAM RF: 0 furosemide 40 mg tablet 40 mg PO QPM RF: 0 clopidogrel 75 mg tablet 75 mg PO QPM RF: 0 aspirin 81 mg tablet,delayed release (DR/EC) 81 mg PO QPM RF: 0
[2020-12-18] MEDS ORDERED: ASPIRIN CHEW 324 MG PO STA (11:26)
--- NOTE | 2020-12-18 11:39 | History & Physical Report ---
Date of Service December 18, 2020 Assessment & Plan (1) Acute on chronic diastolic (congestive) heart failure: Will switch Lasix to Bumex as possible failure outpatient due to poor absorption. Bumex 2mg IV BID Low Na, Heart healthy, fluid restrict 1500ml No need to repeat echocardiogram as recently done 12/04/20 Daily weights Strict I's and O's (2) Elevated troponin: Suspect demand ischemia in the setting of congestive heart failure with known coronary artery disease (see below) Consult cardiology and trend overnight (3) Severe aortic stenosis: Suspect major cause of congestive heart failure as above. 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 Consult cardiology. (4) CAD (coronary artery disease): STEMI in September 2020. Patient with widely patent ANURADHA to LAD, TESFAYE to first diagonal. Culprit lesion with acute on chronic occlusion of proximal circumflex with collaterals which was not amenable to PCI via TESFAYE. Also with residual mid LAD stenosis after the anastomosis not felt to be culprit lesion and elected for medical management of this. Continue dual antiplatelet therapy with aspirin and clopidogrel. Continue metoprolol succinate 200 mg p.o. every morning, losartan 25 mg p.o. daily, atorvastatin 20 mg every afternoon. (5) Diabetes mellitus, with long-term current use of insulin: HbA1C 8.4 in Nov. No need to repeat this. Consult pharmacy for glycemic control. (6) Primary hypothyroidism: TSH WNL (11/2020) Continue levothyroxine 100 mcg p.o. daily (7) Pancreatic insufficiency: Continue pancreatic enzymes twice daily (8) GERD without esophagitis: Continue pantoprazole 40 mg p.o. every morning (9) DVT prophylaxis: Lovenox 40mg SQ daily Admission and Anticipated Discharge Date Admission Date: December 18, 2020 History of Present Illness Primary Care Provider: Abraham Aguirre MD Law Ca is an 85-year-old male who presents to the ER with increasing shortness of breath since his last discharge for congestive heart failure on December 12 (6 days ago). He has recently had multiple admissions for CHF from December 03 to December 05 and subsequently from December 10-. He improved on both these occasions with IV Lasix 40 mg twice daily. After his last admission he was discharged on Lasix 40 mg p.o. twice daily. He reports feeling well for the day of and day after discharge including a visit to the grocery store. However on December 14 (4 days ago) he went again to the grocery store and became very short of breath on exertion. He called the heart failure clinic either or Friday at which point his Lasix was increased to 80 mg in the morning and 40 mg at night. Despite this he continued to feel increasing shortness of breath on exertion and his urine output has not increased despite high dose of Lasix. Due to worsening shortness of breath and 5 pounds weight gain since yesterday he decided to come to the ER today. Associated PND and orthopnea. He denies any chest pain, palpitations, claudication, presyncope or syncope. In addition he notes his morning glucose was 47. He does note feeling hypoglycemic symptoms such as fatigue at this level. He took his usual Humulin N (70 units and R 40 units) but also ate breakfast and glucose currently 277 in the ER. On his prior hospitalizations one of his main concerns has been right upper quadrant pain which was suspected to be liver congestion from congestive heart failure. He reports this is now completely resolved and has not returned since last hospitalization. In the ER BNP improved to 3355 (from 4760, last hospitalization), chest x-ray showed no significant change to pulmonary edema bilateral pleural effusions from prior chest x-ray. EKG was concerning for ST elevations in inferior leads however this appears to be an old finding as ST elevation much more prominent in September with STEMI at that time and has been intermittently elevated since then . However given elevated troponin the ER physician discussed his case was discussed with his outpatient heart failure nurse practitioner and recommended admission to trend troponins and IV diuretics until euvolemic. Allergies Allergy/AdvReac Type Severity Reaction Status Date / Time adhesive Allergy Mild RASH Verified 12/18/20 10:49 Penicillins Allergy Unknown RASH Unverified 12/18/20 10:49 Home Medications Medication Instructions Recorded Confirmed Type latanoprost 0.005 % eye drops 1 drops OP DAILY ml 07/14/19 12/18/20 History blood sugar diagnostic #180 ea 12/10/19 12/18/20 Rx insulin syringe-needle U-100 1 mL ea 05/25/20 12/18/20 History 31 gauge x 5/16" atorvastatin 20 mg tablet 20 mg PO QPM #90 tab 09/08/20 12/18/20 Rx ranolazine 500 mg tablet,extended 500 mg PO BID #180 tab 11/18/20 12/18/20 Rx release,12 hr Humulin N NPH U-100 Insulin 66 - 70 unit SQ AMPM 12/03/20 12/18/20 History Humulin R Regular U-100 Insuln 36 - 40 unit SQ AMPM 12/03/20 12/18/20 History levothyroxine 100 mcg PO QAM 12/03/20 12/18/20 History metoprolol succinate 200 mg PO QAM 12/03/20 12/18/20 History multivitamin [Daily Multi-Vitamin] 1 tab PO QAM 12/03/20 12/18/20 History pantoprazole [Protonix] 40 mg PO QAM 12/03/20 12/18/20 History potassium chloride [Klor-Con M10] 10 meq PO QAM 12/03/20 12/18/20 History vitamin B complex 1 tab PO QAM 12/03/20 12/18/20 History coenzyme Q10 1 cap PO DAILY 12/07/20 12/18/20 History isosorbide mononitrate 60 mg 60 mg PO DAILY #30 tab 12/07/20 12/18/20 Rx tablet,extended release 24 hr nitroglycerin 0.4 mg sublingual 0.4 mg SUBLINGUAL PRN PRN #30 tab 12/07/20 12/18/20 Rx tablet [id number] 1 cap PO BID #60 cap 12/08/20 12/18/20 Rx 3,000-9,500-15,000 unit capsule,delayed releas losartan 25 mg tablet 25 mg PO DAILY #90 tab 12/08/20 12/18/20 Rx aspirin 81 mg PO QPM 12/18/20 12/18/20 History clopidogrel 75 mg PO QPM 12/18/20 12/18/20 History furosemide 40 mg PO QPM 12/18/20 12/18/20 History furosemide 60 mg PO QAM 12/18/20 12/18/20 History Past Med/Surg History Medical History (Updated 12/18/20 @ 12:44 by Jose Maria Sorto MD) Acute [place] CAD (coronary artery disease) Diabetes mellitus, with long-term current use of insulin Diabetic peripheral neuropathy Diarrhea Elevated prostate specific antigen (PSA) Epigastric abdominal pain GERD without esophagitis Glaucoma History of parotid cancer Hypercholesterolemia Hypertension Inferolateral myocardial infarction Ischemic cardiomyopathy Malignant neoplasm of prostate Mitral regurgitation Moderate to severe aortic stenosis Never smoker Osteoarthritis of hands, bilateral Osteoarthritis of left knee Primary hypothyroidism ST elevation [place] (STEMI) Tricuspid regurgitation Surgical History (Updated 12/18/20 @ 12:38 by Jose Maria Sorto MD) H/O transfusion of whole blood H/O varicose veins November 1970 History of genitourinary surgery Prostatectomy 04/05/2003 S/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 Family History Brother Prostate cancer Family/Other Cancer Diabetes Heart disease Hypertension Denies family history of Colon cancer Ovarian cancer Myocardial infarction Breast cancer Social History Smoking Status: Never smoker Second Hand Exposure: No; Hx Alcohol Use: Yes Alcohol type: beer Hx Substance Use: No Preferred Language: Indonesian Communication Ability: Effective Visual Impairment: No Limitations Hearing Ability: Normal Emergency Department Clinician Required: No Beliefs That Will Affect Care: None marital status: / Current Living Situation: Alone current occupational status: retired Feels Safe at Home: Yes Childhood Exposure to Second-Hand Smoke: Yes Dental Care, Regularly: No Physical Activity Frequency: 3-4 Times per Week Seatbelt Use: always Sunscreen Use: No Assistive Devices: None Review of Systems Review of Systems: All systems reviewed & are unremarkable except as noted in HPI & below Physical Exam Constitutional: well developed; + not well nourished and no acute distress Eyes: + anicteric sclerae; normal pupil size ENMT: external ear and nose normal, oropharynx normal Neck: trachea midline Respiratory: normal respiratory effort (short of breath on minimal exertion) Auscultation: + breath sounds absent (Bibasal to mid zone b/l) and + crackles (fine, mid zone posteriorly b/l); no diminished lung sounds Cardiovascular: Rate/Rhythm: regular rate and regular rhythm Heart Sounds: + murmur (BLAZE 3/6 loudest RUSB, early opening) Extremities: + pedal edema (1+ pre-tibial) Gastrointestinal (Abdomen): normal bowel sounds, soft, nontender, no hepatosplenomegaly Musculoskeletal: no cyanosis or clubbing, extremities motor strength 5/5 Skin: no rashes, warm and dry Neurologic: moves all extremities and awake; not confused Psychiatric: A+Ox3, euthymic affect Results & Data Results & Data ([facility]) Vital Signs (Past 12 Hours) Vital Signs Temp Pulse Pulse Resp BP BP Pulse Ox 12/18/20 10:13 67 22 112/68 97 12/18/20 09:30 67 22 128/69 98 12/18/20 08:52 36.5 C 75 22 149/95 H 96 Diagnostic Findings XR chest 1V portable IMPRESSION: 1. No significant change in the pulmonary edema and bilateral pleural effusions. 2. Left basilar densities have slightly improved. This could represent resolving atelectasis or pneumonia. Medications Administered ER medications given: Aspirin 324 mg PO Lasix 40 mg IV ECG Indication: SOB/dyspnea Rate (beats per minute): 80 Rhythm: normal sinus Findings: + ST depression (Lateral), + T-wave inversion (Lateral) and + ST elevation (III, similar to previous) Comparison ECG Date: from (December 10, 2020) Change: no significant change Code Status & VTE Plan Code Status DNR/DNI VTE Prophylaxis Plan VTE Prophylaxis will be ordered: Yes PG Care Time/CCT Total # of Minutes Spent Total Time Spent with Patient: Total time spent is greater than 50% in coordination of care (as documented) at patient's floor/unit and/or counseling patient: Coding Level of Care Code 40315 OBS Care - Level 3 Diagnoses Acute on chronic diastolic (congestive) heart failure I50.33 Elevated troponin R77.8 Severe aortic stenosis I35.0 CAD (coronary artery disease) I25.10 Coronary Disease-Associated Artery/Lesion type: [place] artery [place] vs. transplanted heart: [place] heart Associated angina: angina presence unspecified Diabetes mellitus, with long-term current use of insulin E11.9; Z79.4 Primary hypothyroidism E03.9 Pancreatic insufficiency K86.89 GERD without esophagitis K21.9 DVT prophylaxis Z29.9 (1) CAD (coronary artery disease) Coronary Disease-Associated Artery/Lesion type: [place] artery [place] vs. transplanted heart: [place] heart Associated angina: angina presence unspecified Qualified Code(s): I25.10 - Atherosclerotic heart disease of [place] coronary artery without angina pectoris
[2020-12-18] MEDS ORDERED: DEXTROSE 50% 50 ML SYRINGE IV PRN (14:58)
[2020-12-18] MEDS ORDERED: POLYETHYLENE (MIRALAX) 17 GM PACK PO PRN (14:58)
[2020-12-18] MEDS ORDERED: GLUCOSE 40% GEL 15 GM TUBE PO PRN (14:58)
[2020-12-18] MEDS ORDERED: GLUCAGON FOR INJ 1 MG VIAL SQ PRN (14:58)
[2020-12-18] MEDS ORDERED: ALUMINUM/MAGNESIUM SUSP 30 ML UDC PO PRN (14:58)
[2020-12-18] MEDS ORDERED: ACETAMINOPHEN 325 MG TAB PO PRN (14:58)
[2020-12-18] MEDS ORDERED: ONDANSETRON INJ 2 MG/ML 2 ML VIAL IV PRN (14:58)
[2020-12-18] MEDS ORDERED: NITROGLYCERIN SL 0.4 MG/TAB TAB SL PRN (14:58)
[2020-12-18] MEDS ORDERED: GLUCOSE 10 TABS/TUBE PO PRN (14:58)
[2020-12-18] MEDS ORDERED: PHARMACY GLYCEMIC MGMT CONSULT PRN (15:26)
[2020-12-18] MEDS: CARBOHYDRATES FOR HYPOGLYCEMIA PO PRN ×2 (16:30→17:00)
[2020-12-18] MEDS: PANCREAZE (LIPASE 10,500U) CAP PO SCH (17:05)
[2020-12-18] MEDS: INSULIN ASPART 100 UNITS/ML 3 ML PEN SC SCH ×2 (17:05→20:56)
[2020-12-18] MEDS: BUMETANIDE 2 MG in SYRINGE 0 ML IV SCH (17:32)
[2020-12-18] MEDS: ENOXAPARIN INJ 40 MG/0.4 ML SYR SQ SCH (20:56)
[2020-12-18] MEDS: CLOPIDOGREL BISULFATE 75 MG TAB PO SCH (20:58)
[2020-12-18] MEDS: ASPIRIN 81 MG ECTAB PO SCH (20:58)
[2020-12-18] MEDS: RANOLAZINE 500 MG ER TAB PO SCH (20:58)
[2020-12-18] MEDS ORDERED: ATORVASTATIN 20 MG TAB PO SCH (21:00)
[2020-12-19] MEDS: INSULIN ASPART 100 UNITS/ML 3 ML PEN SC SCH ×6 (01:01→21:07)
[2020-12-19] MEDS: LEVOTHYROXINE SODIUM 100 MCG TABLET PO SCH (06:16)
--- NOTE | 2020-12-19 06:22 | Electrocardiogram Report ---
Test Reason : Blood Pressure : / mmHG Vent. Rate : 080 BPM Atrial Rate : 080 BPM P-R Int : 228 ms QRS Dur : 102 ms QT Int : 404 ms P-R-T Axes : 058 029 163 degrees QTc Int : 465 ms Poor data quality, interpretation may be adversely affected Sinus rhythm with 1st degree A-V block Possible Left atrial enlargement Possible Inferior infarct Abnormal ECG When compared with ECG of 10-DEC-2020 06:57, MT interval has increased Confirmed by Gamaliel Galeas ([id number]) on 12/19/2020 6:22:29 AM Referred By: SELF Confirmed By:Gamaliel Galeas
[2020-12-19 06:56] LABS: BUN Creatinine Ratio 13.6 (10-20); Calcium 8.8 mg/dl (8.5-10.1); Creatinine Clr Calc Pharmacy 55.5 ml/min; Est GFR (Non-African American) 55.2; Potassium 3.8 mmol/L (3.5-5.1)
[2020-12-19 07:05] LABS: Troponin I 3.52 ng/ml (0-0.045)
--- NOTE | 2020-12-19 09:08 | Pharmacy Report ---
Pharmacy Glycemic Short Note 2 - Date of Service December 19, 2020 - Glycemic Short BSG Results (Last 24 hours): 12/18/20 12/18/20 12/18/20 09:08 16:31 16:32 Glucose 277 H POC Glucose 51 L* 52 L* 12/18/20 12/18/20 12/18/20 16:45 17:01 17:02 Glucose POC Glucose 59 L* 65 L* 73 12/18/20 12/18/20 12/18/20 17:17 19:39 23:58 Glucose POC Glucose 87 94 134 H 12/19/20 12/19/20 12/19/20 03:55 05:24 07:32 Glucose 69 L POC Glucose 94 153 H OUTPATIENT ANTIDIABETIC REGIMEN: * NPH 70 units AM + 66 units PM * Regular 40 units AM + 36 units PM * HbA1c = 8.4% (11/30/20) RISK FACTORS FOR INSULIN RESISTANCE: * Diet - T2DM ASSESSMENT: * Mr. Ca is an 85 yo M admitted secondary to shortness of breath and heart failure exacerbation. He was recently admitted at [facility] from 12/10-12/12 for similar issues. He is well known to the pharmacy glycemic service. * Random BSG was 277 mg/dL in the ED yesterday upon admission. He was not given any insulin. Upon transfer to the floor, patient's BSG was 51 mg/dL. Per RN note, he received 30 grams of carbs per hypoglycemia protocol. 15 minutes later, BSG was still low at 59 mg/dL so patient received another 30 grams of carbs per hypoglycemia protocol as well as dinner tray. No documentation of how many carbs were consumed with dinner. 15 minutes later, BSG was up to 73 mg/dL. * Mr. Ca did take 70 units of NPH and 40 units in the morning prior to admission per his outpatient regimen. However, he then did not eat until dinner which is the likely cause of this hypoglycemic event. * BSGs throughout the night were 94-134-94 mg/dL. He did not receive any further insulin yesterday. * Fasting BSG was 153 mg/dL this AM. Will start NPH BID with meals and Novolog based on previous admission data which controlled patient well. PLAN FOR INPATIENT GLYCEMIC CONTROL: * Basal insulin * NPH 20-30 units SQ BID per scale * 20 units for BSG less than 140 mg/dL; 25 units for BSG 140-180 mg/dL; 30 units for BSG greater than 180 mg/dL * Bolus insulin * NovoLog per scale ACHS or Q6hrs while NPO * Goal Range: Low 110 mg/dL - High 140 mg/dL * Correction Factor: 15 mg/dL/unit * Nutritional / Prandial insulin per carb ratio of 1 unit per 6 grams CHO consumed PLAN FOR DISCHARGE: * To be determined
[2020-12-19] MEDS: POTASSIUM CHLORIDE 10 MEQ TABCR PO SCH (09:10)
[2020-12-19] MEDS: PANCREAZE (LIPASE 10,500U) CAP PO SCH ×2 (09:10→17:39)
[2020-12-19] MEDS: METOPROLOL SUCC 50MG EXT REL TAB PO SCH (09:10)
[2020-12-19] MEDS: RANOLAZINE 500 MG ER TAB PO SCH ×2 (09:10→20:31)
[2020-12-19] MEDS: VITAMIN B COMPLEX TAB PO SCH (09:10)
[2020-12-19] MEDS: LATANOPROST 0.005% OP SOLN 2.5 ML BTL OP SCH (09:11)
[2020-12-19] MEDS: MULTIVITAMIN TAB PO SCH (09:11)
[2020-12-19] MEDS: PANTOprazole 40 MG TAB PO SCH (09:11)
[2020-12-19] MEDS: ISOSORBIDE MONO EXTENDED REL 60 MG TABCR PO SCH (09:11)
[2020-12-19] MEDS: LOSARTAN POTASSIUM 25 MG TAB PO SCH (09:11)
[2020-12-19] MEDS: BUMETANIDE 2 MG in SYRINGE 0 ML IV SCH ×2 (09:11→18:14)
[2020-12-19] MEDS: INSULIN HUMAN NPH SC SCH (09:17)
--- NOTE | 2020-12-19 11:18 | XCELERA ---
[id number]
--- NOTE | 2020-12-19 13:23 | Medical Student Progress Note ---
Date of Service December 19, 2020 Assessment & Plan Admission and Anticipated Discharge Date Admission Date: December 18, 2020 Subjective Pt is an 85yo M with a PMH of CAD, status post CABG, EFpHF, Aortic Stenosis, Pulmonary HTN, hyperlipidemia, and DMII on insulin who presented to the ED with worsening SOB, weight gain, and leg swelling over the last few days. The pt has had multiple hospitalizations in the last few months with the last one being a week ago. For this hospitalization, on arrival to the ED, the pt was mildly, SOB and did show signs of volume overload. He had bilateral LE edema, weight gain, and STOVALL with minimal exertion. Today, the pt is doing much better. He states that he can breathe a lot better and that he voided multipled times in the day. He feels the diuretic is working better, and was wondering if the Lasix he was given prior was even effective. Results & Data ([facility]) Vital Signs (Past 12 Hours) Vital Signs Temp Pulse Pulse Resp BP Pulse Ox 12/19/20 11:36 36.4 C L 69 18 118/73 94 12/19/20 07:58 65 12/19/20 07:45 36.5 C 65 18 115/69 92 12/19/20 04:09 37.1 C 71 20 105/66 94
--- NOTE | 2020-12-19 14:54 | Hospitalist Progress Note ---
Date of Service December 19, 2020 Assessment & Plan (1) Acute on chronic diastolic (congestive) heart failure: Law Ca is an 85-year-old male w/ PMH of CAD status post CABG, history of preserved EF heart failure, moderate to severe aortic stenosis, moderate MR, pulmonary hypertension, hyperlipidemia, DM2 on insulin, obesity, hypertension who is admitted due to CHF exacerbation. Acute on chronic CHF - previously preserved EF but now reduced on echo as below - Echo: Mod to severely reduced sys fxn (EF 30-35%); global hypokinesis w/ some areas of akinesis (see Echo results from 12/19) - LV sys function declined compared to echo on 12/04 - Continue Bumex 2mg IV BID - Low Na, Heart healthy, fluid restrict 1500ml diet - Daily weights - Strict I's and O's NSTEMI - changes on Echo as above and elevated troponin point to likely [place], but no real ST changes on EKG from earlier in December - Cardiology consulted, follow recs Severe aortic stenosis - Suspect major cause of congestive heart failure as above - Cardiology consulted, follow recs - Can consider TAVR depending on Cardiology thoughts on surgical candidacy CAD (coronary artery disease) - STEMI in 09/22 s/p CABG - Continue dual antiplatelet therapy with aspirin and clopidogrel - Continue metoprolol succinate 200 mg p.o. every morning, losartan 25 mg p.o. d aily - Increase atorvastatin to 40mg daily Diabetes Mellitus - long-term insulin use - HbA1C 8.4 in 11/23 - Pharmacy consulted for glycemic control Primary Hypothyroidism - TSH normal in - Continue levothyroxine 100 mcg p.o. daily Pancreatic insufficiency - Continue pancreatic enzymes twice daily GERD without esophagitis - Continue pantoprazole 40 mg p.o. every morning FENGI: Low Na, Heart Healthy, Fluid restriction (1500ml), CC/DM2 DVT prophylaxis: Lovenox 40mg SQ daily Dispo: Med (2) CAD (coronary artery disease): (3) Elevated troponin: (4) Severe aortic stenosis: (5) Diabetes mellitus, with long-term current use of insulin: (6) Primary hypothyroidism: (7) Pancreatic insufficiency: (8) GERD without esophagitis: Admission and Anticipated Discharge Date Admission Date: December 18, 2020 Results & Data Results & Data ([facility]) Vital Signs (Past 12 Hours) Vital Signs Temp Pulse Pulse Resp BP Pulse Ox 12/19/20 11:36 36.4 C L 69 18 118/73 94 12/19/20 07:58 65 12/19/20 07:45 36.5 C 65 18 115/69 92 12/19/20 04:09 37.1 C 71 20 105/66 94 (1) CAD (coronary artery disease) Associated angina: angina presence unspecified Coronary Disease-Associated Artery/Lesion type: [place] artery [place] vs. transplanted heart: [place] heart Qualified Code(s): I25.10 - Atherosclerotic heart disease of [place] coronary artery without angina pectoris
[2020-12-19] MEDS: CARBOHYDRATES FOR HYPOGLYCEMIA PO PRN (16:48)
--- NOTE | 2020-12-19 18:06 | Hospitalist Progress Note ---
Date of Service December 19, 2020 Assessment & Plan (1) Acute on chronic diastolic (congestive) heart failure: now combined systolic and diastolic ---> question of if he's not absorbing lasix PO. on bumex now and diuresing well. easily could have rebounded due to Na intake as well. and current decompensation easily could also simply be from [place]. certainly underlying severe strongly contributing as well ---> continue diuresis ---> ongoing education on Na (2) Elevated troponin: w trop ~3.5 and new wall motion abnromality - NSTEMI//if demand ischemia very severe. med management consider [facility] but not sure w prior disease if anything would be amenable to intervention no active angina and troponin appears to have peaked (3) Severe aortic stenosis: Suspect major cause of congestive heart failure as above. probably for TAVR in near future. (4) CAD (coronary artery disease): STEMI in September 2020. Patient with widely patent ANURADHA to LAD, TESFAYE to first diagonal. Culprit lesion with acute on chronic occlusion of proximal circumflex with collaterals which was not amenable to PCI via TESFAYE. Also with residual mid LAD stenosis after the anastomosis not felt to be culprit lesion and elected for medical management of this. ---see above. med management. (5) Diabetes mellitus, with long-term current use of insulin: HbA1C 8.4 in Nov. sugar reasonable (6) Primary hypothyroidism: TSH WNL (11/2020) Continue levothyroxine 100 mcg p.o. daily (7) Pancreatic insufficiency: Continue pancreatic enzymes twice daily (8) GERD without esophagitis: Continue pantoprazole 40 mg p.o. every morning (9) DVT prophylaxis: Lovenox 40mg SQ daily Admission and Anticipated Discharge Date Admission Date: December 19, 2020 Subjective feeling better than when he came in. notes that prior to last admission he was eating a lot of soups, etc - notes that he's working on changing that now, but has a hard time recalling what he ate in the last week since last discharge and this readmission. breathing doing better, no new complaints cardiology input appreciated pt aware of TAVR and general idea of procedure - a relative had it done not too long ago otherwise no new HPI / ROS otherwise negative except for as above Review of Systems Review of Systems: All systems reviewed & are unremarkable except as noted in HPI & below Physical Exam Physical Exam: gen aaox3 pleasant but fatigued nad heent nc at mmm breathing unlabored no accessory muscles good effort skin no rashes no pallor or icterus neuro no focal deficits mental status intact Results & Data Results & Data ([facility]) Vital Signs (Past 12 Hours) Vital Signs Temp Pulse Pulse Resp BP BP Pulse Ox 12/19/20 16:11 97.7 F 64 20 124/75 97 12/19/20 11:36 97.5 F L 69 18 118/73 94 12/19/20 07:58 65 12/19/20 07:45 97.7 F 65 18 115/69 92 PG Care Time/CCT Total # of Minutes Spent Total Time Spent with Patient: Total time spent is greater than 50% in coordination of care (as documented) at patient's floor/unit and/or counseling patient: Coding Level of Care Code 10860 Subseq Hosp Care Lvl 3 Diagnoses Acute on chronic diastolic (congestive) heart failure I50.33 Elevated troponin R77.8 Severe aortic stenosis I35.0 CAD (coronary artery disease) I25.10 Coronary Disease-Associated Artery/Lesion type: [place] artery [place] vs. transplanted heart: [place] heart Associated angina: angina presence unspecified Diabetes mellitus, with long-term current use of insulin E11.9; Z79.4 Primary hypothyroidism E03.9 Pancreatic insufficiency K86.89 GERD without esophagitis K21.9 DVT prophylaxis Z29.9 (1) CAD (coronary artery disease) Coronary Disease-Associated Artery/Lesion type: [place] artery [place] vs. transplanted heart: [place] heart Associated angina: angina presence unspecified Qualified Code(s): I25.10 - Atherosclerotic heart disease of [place] coronary artery without angina pectoris
--- NOTE | 2020-12-19 18:16 | Cardiology Consultation ---
Date of Consultation December 19, 2020 Assessment & Plan (1) Acute systolic (congestive) heart failure: (2) Severe aortic stenosis: (3) CAD (coronary artery disease): (4) S/P CABG (coronary artery bypass graft): (5) Non-ST elevation (NSTEMI) myocardial infarction: (6) Cardiomyopathy: ASSESSMENT/PLAN: 1. Acute systolic CHF: LV systolic function is now significantly reduced compared to prior echo. He appears hypervolemic and has improved significantly with diuresis. Continue current diuretic. Start spironolactone 25 mg once daily tomorrow. May be able to discontinue potassium chloride while on spironolactone. Continue metoprolol succinate 200 mg daily. Consider replacing losartan with low-dose Entresto; will reassess tomorrow. 2. Significant aortic stenosis: His aortic stenosis on most recent echo appeared moderate to severe however this is in the setting of depressed LV systolic function. This likely underestimates his stenosis. His valve area on 12/04/2020 echo was 0.75 cm2. Recommended referral for TAVR evaluation. He would like to think things over and discuss with his daughters. He was agreeable for me to reach out to [facility] to discuss his case. Valve primary clinician, Diana Green, was contacted via telephone and she was agreeable to have him seen at [facility] as an outpatient in the next 1-2 weeks, if he is agreeable. 3. CAD s/p CABG x 2: No angina but elevated troponin. Had severe disease that was treated medically during September 2020 catheterization. Continue aspirin 81 mg daily. Continue high-intensity statin therapy and beta-johnie. He did not present with acute coronary syndrome. This is likely due to demand ischemia in the setting of CHF exacerbation, significant aortic stenosis, and underlying CAD. 4. NSTEMI: He did not present with acute coronary syndrome or his previous anginal symptom. Elevated troponin/NJ likely due to CHF exacerbation, significant aortic stenosis, and underlying CAD. Medically managed. 5. Cardiomyopathy: Likely due to significant aortic stenosis and underlying CAD. Continue metoprolol succinate 200 mg daily. Continue ARB today but consider Entresto if blood pressure allows in place of ARB. Starting spironolactone as he is taking potassium supplementation with loop diuretic. If LV systolic function does not improve within 90 days of optimal therapy or following aortic valve replacement, would consider ICD for primary prevention. 6. Disposition: Cardiology will continue to follow. On discharge, recommend very close follow-up in the Heart failure program as well as his primary charge nurse, Dr. Trotter. Patient care communicated with Dr. Santos of the primary hospitalist service. Highly complex medical issues. Thank you for allowing me to participate in the care of your patient. Please call for any other questions or concerns. Sincerely, Braden Galeas M.D. History of Present Illness Reason for Consultation: Acute CHF Requesting Physician: Dr. Sorto Attending Physician: Nikko Santos, History of Present Illness Mr. Ca is a pleasant 85-year-old gentleman with a history significant for diastolic CHF, significant aortic stenosis, CAD s/p CABG x 2 (ANURADHA to LAD; TESFAYE to D1 2013), STEMI (Sep 2020), poorly-controlled diabetes, hypothyroidism, and pancreatic insufficiency. His primary charge nurse is Dr. Trotter. He is enrolled in Heart failure program. He has had the following studies/procedures: 1. CABG x2 2013: ANURADHA to LAD; TESFAYE to D1 2. Cardiac catheterization 09/15/2020: Distal LM C1 100%. Proximal LAD fills via retrograde filling from diagonal. Diffuse proximal to mid disease prior to takeoff of small D2 with ostial 90%. Proximal acute on chronic circumflex 100%. Left PL be fills primarily via retrograde [id number] collaterals from diagonal. Dominant RCA. Proximal to mid RCA 50-60%. ANURADHA to LAD patent. 90% focal stenosis in mid LAD just after anastomosis. TESFAYE to high D1 patent. Acute circumflex stenosis was recommended to be treated medically. Could consider PCI to mid LAD anastomosis. He was recently hospitalized on 12/03/2020 through 12/05/2020 for acute on chronic systolic CHF. He was then again admitted on 12/10/2020 and discharged on 12/12/2020 for CHF. He underwent an echo on 12/04/2020 which reported an EF of 50-55% with moderate to severe aortic stenosis and moderate mitral regurgitation. Although not on the report itself, his aortic valve area was 0.75 with a dimensionless index of 0.21, and a mean gradient of 27 mmHg. His heart failure program follow-up from his most recent hospitalization was scheduled for 12/19/2020 but unfortunately he was admitted on 12/18/2020. Shortly after being discharged, he developed dyspnea with exertion and edema and overall a 8-9 lb weight gain. He reportedly called the Heart failure program with worsening symptoms and his Lasix was adjusted from 40 mg twice daily and increase to 80 mg in the morning with 40 mg in the afternoon. Unfortunately, he continued to have worsening dyspnea with exertion. He denies chest pain, palpitations, syncope, near-syncope, or bleeding such as melena, hematochezia, or hematuria. He denies fevers or chills. While here, he has been receiving Bumex 2 mg IV b.i.d. and has diuresed a net negative fluid balance of 5.3 L. He feels much better but is not yet back to baseline. His initial troponin was 2.65 but peaked at 3.62. He denied any angina. Review of systems: As above. Review of systems otherwise negative/unremarkable. Family history: No known premature CAD. Social history: He denies smoking. Occasional alcohol. Lives alone. . Two daughters, 1 lives in [place] and 1 in [place]. He was unaccompanied in his hospital room. Allergies Allergy/AdvReac Type Severity Reaction Status Date / Time adhesive Allergy Mild RASH Verified 12/18/20 10:49 Penicillins Allergy Unknown RASH Unverified 12/18/20 10:49 Home Medications Medication Instructions Recorded Confirmed Type latanoprost 0.005 % eye drops 1 drops OP DAILY ml 07/14/19 12/18/20 History blood sugar diagnostic #180 ea 12/10/19 12/18/20 Rx insulin syringe-needle U-100 1 mL ea 05/25/20 12/18/20 History 31 gauge x 5/16" atorvastatin 20 mg tablet 20 mg PO QPM #90 tab 09/08/20 12/18/20 Rx ranolazine 500 mg tablet,extended 500 mg PO BID #180 tab 11/18/20 12/18/20 Rx release,12 hr Humulin N NPH U-100 Insulin 66 - 70 unit SQ AMPM 12/03/20 12/18/20 History Humulin R Regular U-100 Insuln 36 - 40 unit SQ AMPM 12/03/20 12/18/20 History levothyroxine 100 mcg PO QAM 12/03/20 12/18/20 History metoprolol succinate 200 mg PO QAM 12/03/20 12/18/20 History multivitamin [Daily Multi-Vitamin] 1 tab PO QAM 12/03/20 12/18/20 History pantoprazole [Protonix] 40 mg PO QAM 12/03/20 12/18/20 History potassium chloride [Klor-Con M10] 10 meq PO QAM 12/03/20 12/18/20 History vitamin B complex 1 tab PO QAM 12/03/20 12/18/20 History coenzyme Q10 1 cap PO DAILY 12/07/20 12/18/20 History isosorbide mononitrate 60 mg 60 mg PO DAILY #30 tab 12/07/20 12/18/20 Rx tablet,extended release 24 hr nitroglycerin 0.4 mg sublingual 0.4 mg SUBLINGUAL PRN PRN #30 tab 12/07/20 12/18/20 Rx tablet [id number] 1 cap PO BID #60 cap 12/08/20 12/18/20 Rx 3,000-9,500-15,000 unit capsule,delayed releas losartan 25 mg tablet 25 mg PO DAILY #90 tab 12/08/20 12/18/20 Rx aspirin 81 mg PO QPM 12/18/20 12/18/20 History clopidogrel 75 mg PO QPM 12/18/20 12/18/20 History furosemide 40 mg PO QPM 12/18/20 12/18/20 History furosemide 60 mg PO QAM 12/18/20 12/18/20 History Patient History Medical History Acute [place] CAD (coronary artery disease) Diabetes mellitus, with long-term current use of insulin Diabetic peripheral neuropathy Diarrhea Elevated prostate specific antigen (PSA) Epigastric abdominal pain GERD without esophagitis Glaucoma History of parotid cancer Hypercholesterolemia Hypertension Inferolateral myocardial infarction Ischemic cardiomyopathy Malignant neoplasm of prostate Mitral regurgitation Moderate to severe aortic stenosis Never smoker Osteoarthritis of hands, bilateral Osteoarthritis of left knee Primary hypothyroidism ST elevation [place] (STEMI) Tricuspid regurgitation Surgical History H/O transfusion of whole blood H/O varicose veins November 1970 History of genitourinary surgery Prostatectomy 04/05/2003 S/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 Family History Brother Prostate cancer Family/Other Cancer Diabetes Heart disease Hypertension Denies family history of Colon cancer Ovarian cancer Myocardial infarction Breast cancer Social History Smoking Status: Never smoker Second Hand Exposure: No; Do You Dip or Chew Tobacco: No; Hx Alcohol Use: Yes Alcohol type: beer Hx Substance Use: No Preferred Language: Faroese Communication Ability: Effective Visual Impairment: No Limitations Hearing Ability: Normal Technical Solutions Consultant Required: No Beliefs That Will Affect Care: None marital status: / Current Living Situation: Alone current occupational status: retired Other Information That Helps Us Care for You: No Feels Safe at Home: Yes Safety Concerns: Feels Safe At This Time Childhood Exposure to Second-Hand Smoke: Yes Dental Care, Regularly: No Physical Activity Frequency: 3-4 Times per Week Seatbelt Use: always Sunscreen Use: No Assistive Devices: Denture - Upper, Denture - Lower and Glasses Physical Exam Physical Exam: Gen.: No acute distress. Alert and oriented. HEENT: Anicteric sclera. Neck: Mild JVD. Hepatic jugular reflux. Bilateral bruits vs radiation of cardiac murmur. Normal carotid upstrokes bilaterally. Cardiac: PMI was nonpalpable. No ventricular heave. Regular. Normal S1-S2. 2/6 mid peaking systolic ejection murmur heard best at right upper sternal border. No rubs or gallops. Pulmonary: Decreased breath sounds bilaterally, otherwise clear to auscultation bilaterally without wheezes, rales, or rhonchi. Abdomen: Soft, nontender, nondistended, with normoactive bowel sounds. No bruits noted. Extremities: 2+ radial pulses bilaterally. 2+ posterior tibialis pulses bilaterally. 1+ bilateral lower extremity edema in dependent areas. No cyanosis. Psychiatric: Affect appears appropriate. Results & Data ([facility]) Vital Signs (Past 12 Hours) Vital Signs Temp Pulse Pulse Resp BP BP Pulse Ox 12/19/20 16:11 36.5 C 64 20 124/75 97 12/19/20 11:36 36.4 C L 69 18 118/73 94 12/19/20 07:58 65 12/19/20 07:45 36.5 C 65 18 115/69 92 Intake & Output 12/17/20 12/18/20 12/19/20 12/20/20 06:59 06:59 06:59 06:59 Intake Total 315 / 315 540 / 540 Output Total 3925 / 3925 2200 / 2200 Balance -3610 / -3610 -1660 / -1660 Weight 246 lb 0.574 oz Laboratory Results Laboratory Results - last 24 hr 12/18/20 12/18/20 12/18/20 17:18 19:39 23:58 Sodium Potassium Chloride Carbon Dioxide Anion Gap BUN Creatinine Est Cr Clr Drug Dosing Est GFR ( Amer) Est GFR (Non-Af Amer) BUN/Creatinine Ratio Glucose POC Glucose 94 134 H Calcium Troponin I 3.620 H* 12/19/20 12/19/20 12/19/20 03:55 05:24 07:32 Sodium 135 L D Potassium 3.8 D Chloride 100 Carbon Dioxide 28 Anion Gap 7.0 BUN 16 Creatinine 1.20 Est Cr Clr Drug Dosing 55.5 Est GFR ( Amer) 64.0 Est GFR (Non-Af Amer) 55.2 BUN/Creatinine Ratio 13.6 Glucose 69 L POC Glucose 94 153 H Calcium 8.8 Troponin I 3.520 H* 12/19/20 12/19/20 12/19/20 11:34 16:42 16:43 Sodium Potassium Chloride Carbon Dioxide Anion Gap BUN Creatinine Est Cr Clr Drug Dosing Est GFR ( Amer) Est GFR (Non-Af Amer) BUN/Creatinine Ratio Glucose POC Glucose 190 H 51 L* 57 L* Calcium Troponin I 12/19/20 17:06 Sodium Potassium Chloride Carbon Dioxide Anion Gap BUN Creatinine Est Cr Clr Drug Dosing Est GFR ( Amer) Est GFR (Non-Af Amer) BUN/Creatinine Ratio Glucose POC Glucose 72 Calcium Troponin I Diagnostic Findings Telemetry personally reviewed: Sinus rhythm. No arrhythmia. Limited Echo 12/19/2020: Mildly dilated LV with moderately to severely reduced systolic function. EF 30-35%. Akinesis of the basal septal, basal inferior, and basal inferolateral wall segments. Severe hypokinesis to akinesis of the mid inferolateral wall. Otherwise, global hypokinesis. Severe left atrial dilation. Moderate to severe (dimensionless index 0.27. YASMINE 1; mean gradient 26; peak velocity 3.4). ECG personally reviewed: ECG 12/18/2020: Sinus rhythm with first-degree AV block at 80 beats per minute. Inferior infarct. Lateral ST/T-wave abnormality, similar to prior ECG on 12/10/2020. Chest x-ray 12/08/2020: Diffuse interstitial/vascular thickening. Findings suggestive of CHF. Catheterization report reviewed as noted above in HPI. Medications Administered Current Inpatient Medications Acetaminophen (Acetaminophen 325 Mg Tab) 650 mg PO Q4H PRN PRN Reason: Pain or Fever Stop: 01/17/21 14:57 Al Hydrox/Mg Hydrox/Simethicone (Aluminum/Magnesium Susp 30 Ml Udc) 15 ml PO Q4H PRN PRN Reason: Dyspepsia Stop: 01/17/21 14:57 Lipase/Protease/Amylase (Pancreaze (Lipase 10,500u) Cap) 1 cap PO BIDM ARIAN Stop: 01/17/21 16:59 Last Admin: 12/19/20 17:39 Dose: 1 cap Documented by: Aspirin (Aspirin 81 Mg Ectab) 81 mg PO QPM ARIAN Stop: 01/17/21 20:59 Last Admin: 12/18/20 20:58 Dose: 81 mg Documented by: Atorvastatin Calcium (Atorvastatin 40 Mg Tab) 40 mg PO QPM ARIAN Stop: 01/18/21 20:59 Clopidogrel Bisulfate (Clopidogrel Bisulfate 75 Mg Tab) 75 mg PO QPM ARIAN Stop: 01/17/21 20:59 Last Admin: 12/18/20 20:58 Dose: 75 mg Documented by: Dextrose (Dextrose 50% 50 Ml Syringe) 25 - 50 ml IV UD PRN; Protocol PRN Reason: Hypoglycemia Protocol Stop: 01/17/21 14:57 Enoxaparin Sodium (Enoxaparin Inj 40 Mg/0.4 Ml Syr) 40 mg SQ QPM ARIAN Stop: 01/17/21 20:59 Last Admin: 12/18/20 20:56 Dose: 40 mg Documented by: Glucagon (Glucagon For Inj 1 Mg Vial) 1 mg SQ UD PRN; Protocol PRN Reason: Hypoglycemia Protocol Stop: 01/17/21 14:57 Glucose (Glucose 10 Tabs/Tube) 4 - 8 tabs PO UD PRN; Protocol PRN Reason: Hypoglycemia Protocol Stop: 01/17/21 14:57 Glucose (Glucose 40% Gel 15 Gm Tube) 15 - 30 gm PO UD PRN; Protocol PRN Reason: Hypoglycemia Protocol Stop: 01/17/21 14:57 Bumetanide 2 mg/ Syringe 8 mls @ 4 mls/min IV BID@0900,1700 [facility] Stop: 01/17/21 16:59 Last Admin: 12/19/20 18:14 Dose: 4 mls/min Documented by: Insulin Aspart (Insulin Aspart 100 Units/Ml 3 Ml Pen) 0 units SC ACHS [facility]; Protocol Stop: 01/17/21 16:29 Last Admin: 12/19/20 17:39 Dose: Not Given Documented by: Insulin Human NPH (Insulin Human Nph) 0 units SC BIDM [facility]; Protocol Stop: 01/18/21 08:14 Last Admin: 12/19/20 09:17 Dose: 25 units Documented by: Isosorbide Mononitrate (Isosorbide [place] Extended Rel 60 Mg Tabcr) 60 mg PO DAILY [facility] Stop: 01/18/21 08:59 Last Admin: 12/19/20 09:11 Dose: 60 mg Documented by: Latanoprost (Latanoprost 0.005% Op Soln 2.5 Ml Btl) 1 drops OP DAILY [facility] Stop: 01/18/21 08:59 Last Admin: 12/19/20 09:11 Dose: 1 drops Documented by: Levothyroxine Sodium (Levothyroxine Sodium 100 Mcg Tablet) 100 mcg PO DAILYBB [facility] Stop: 01/18/21 06:29 Last Admin: 12/19/20 06:16 Dose: 100 mcg Documented by: Losartan Potassium (Losartan Potassium 25 Mg Tab) 25 mg PO DAILY [facility] Stop: 01/18/21 08:59 Last Admin: 12/19/20 09:11 Dose: 25 mg Documented by: Metoprolol Succinate (Metoprolol Succ 50mg Ext Rel Tab) 200 mg PO QAM [facility] Stop: 01/18/21 08:59 Last Admin: 12/19/20 09:10 Dose: 200 mg Documented by: Miscellaneous (Carbohydrates For Hypoglycemia ) 15 - 30 gm PO UD PRN PRN Reason: Hypoglycemia Protocol Stop: 01/17/21 14:57 Last Admin: 12/19/20 16:48 Dose: 30 gm Documented by: Miscellaneous Information (Pharmacy Glycemic Mgmt Consult) 1 ea N/A UD PRN; Pr otocol PRN Reason: Consult Stop: 01/17/21 15:25 Multivitamins (Multivitamin Tab) 1 tab PO QAM [facility] Stop: 01/18/21 08:59 Last Admin: 12/19/20 09:11 Dose: 1 tab Documented by: Nitroglycerin (Nitroglycerin Sl 0.4 Mg/Tab Tab) 0.4 mg SL UD PRN PRN Reason: Chest Pain Stop: 01/17/21 14:57 Ondansetron HCl (Ondansetron Inj 2 Mg/Ml 2 Ml Vial) 4 mg IV Q6H PRN PRN Reason: Nausea Stop: 01/17/21 14:57 Pantoprazole Sodium (Pantoprazole 40 Mg Tab) [facility] [place] Stop: 01/18/21 08:59 Last Admin: 12/19/20 09:11 Dose: 40 mg Documented by: Polyethylene Glycol (Polyethylene (Miralax) 17 Gm Pack) 17 gm PO DAILY PRN PRN Reason: Constipation Stop: 01/17/21 14:57 Potassium Chloride (Potassium Chloride 10 Meq Tabcr) 10 meq [facility] [place] Stop: 01/18/21 08:59 Last Admin: 12/19/20 09:10 Dose: 10 meq Documented by: Ranolazine (Ranolazine 500 Mg Er Tab) 500 mg PO BID [facility] Stop: 01/17/21 20:59 Last Admin: 12/19/20 09:10 Dose: 500 mg Documented by: Vitamin B Complex (Vitamin B Complex Tab) 1 tab [facility] [place] Stop: 01/18/21 08:59 Last Admin: 12/19/20 09:10 Dose: 1 tab Documented by: PG Care Time/CCT Total # of Minutes Spent Total Time Spent with Patient: Total time spent is greater than 50% in coordination of care (as documented) at patient's floor/unit and/or counseling patient: Coding Level of Care Code 01669 Initial Inpt Care Lvl 3 Diagnoses Acute systolic (congestive) heart failure I50.21 Severe aortic stenosis I35.0 CAD (coronary artery disease) I25.10 Coronary Disease-Associated Artery/Lesion type: [place] artery [place] vs. transplanted heart: [place] heart Associated angina: angina presence unspecified S/P CABG (coronary artery bypass graft) Z95.1 Non-ST elevation (NSTEMI) myocardial infarction I21.4 Cardiomyopathy I42.9 (1) CAD (coronary artery disease) Coronary Disease-Associated Artery/Lesion type: [place] artery [place] vs. transplanted heart: [place] heart Associated angina: angina presence unspecified Qualified Code(s): I25.10 - Atherosclerotic heart disease of [place] coronary artery without angina pectoris
[2020-12-19] MEDS: ASPIRIN 81 MG ECTAB PO SCH (20:30)
[2020-12-19] MEDS: ATORVASTATIN 40 MG TAB PO SCH (20:30)
[2020-12-19] MEDS: CLOPIDOGREL BISULFATE 75 MG TAB PO SCH (20:31)
[2020-12-19] MEDS: ENOXAPARIN INJ 40 MG/0.4 ML SYR SQ SCH (20:31)
[2020-12-20] MEDS ORDERED: INSULIN ASPART 100 UNITS/ML 3 ML PEN SC ONE (02:00)
[2020-12-20] MEDS: LEVOTHYROXINE SODIUM 100 MCG TABLET PO SCH (05:53)
[2020-12-20 07:02] LABS: BUN Creatinine Ratio 17.3 (10-20); Creatinine Clr Calc Pharmacy 48.7 ml/min; Est GFR (African American) 56.5; Est GFR (Non-African American) 48.7; Potassium 3.8 mmol/L (3.5-5.1)
--- NOTE | 2020-12-20 08:03 | Medical Student Progress Note ---
Date of Service December 20, 2020 Assessment & Plan (1) Acute systolic (congestive) heart failure: Pt presented with increased SOB, STOVALL, and pedal edema, which has improved since admission. An echo was done to reasses his heart function. The echo showed LV systolic function is now significantly reduced compared to prior echo. (EF from 50-55 to now 30-35) He appears hypervolemic but has improved significantly with diuresis. He was switched from Lasix to Bumex due to concerns of absorption , but it is also possible that the pt's high salt diet, also played a role in his decompensation. Cardiology recommended adding spirinolactone. We are considering replacing pt's losartan to entresto. -Continue Bumetanide 2mg IV. -Start spironolactone 25 mg daily Today. -May be able to discontinue potassium chloride while on spironolactone. -Continue metoprolol succinate 200 mg daily. -Consider replacing losartan with low-dose Entresto (2) Severe aortic stenosis: His aortic stenosis on most recent echo appeared moderate to severe however this is in the setting of depressed LV systolic function. This likely underestimates his stenosis. His valve area on 12/04/2020 echo was 0.75 cm2. Recommended referral for TAVR evaluation. Pt is agreeable to proceed with the procedure. Valve emergency department clinician, Diana Green, was contacted via telephone and she was agreeable to have him seen at [facility] as an outpatient in the next 1-2 weeks. (3) CAD (coronary artery disease): STEMI in September 2020. Patient with widely patent ANURADHA to LAD, TESFAYE to first diagonal. Culprit lesion with acute on chronic occlusion of proximal circumflex with collaterals which was not amenable to PCI via TESFAYE. Also with residual mid LAD stenosis after the anastomosis not felt to be culprit lesion and elected for medical management of this. ---see above. med management. Associated angina: angina presence unspecified Coronary Disease- Associated Artery/Lesion type: [place] artery [place] vs. transplanted heart: [place] heart Qualified Code(s): I25.10 - Atherosclerotic heart disease of [place] coronary artery without angina pectoris (4) S/P CABG (coronary artery bypass graft): CAD s/p CABG x 2: No angina but elevated troponin. Had severe disease that was treated medically during September 2020 catheterization. He did not present with acute coronary syndrome. This is likely due to demand ischemia in the setting of CHF exacerbation, significant aortic stenosis, and underlying CAD. -Continue aspirin 81 mg daily. -Continue high-intensity statin therapy and beta-johnie. (5) Non-ST elevation (NSTEMI) myocardial infarction: NSTEMI: He did not present with acute coronary syndrome or his previous anginal symptom. Elevated troponin/[place] likely due to CHF exacerbation, significant aortic stenosis, and underlying CAD. Medically managed. (6) Cardiomyopathy: Cardiomyopathy: Likely due to significant aortic stenosis and underlying CAD. Continue metoprolol succinate 200 mg daily. Continue ARB today but consider Entresto if blood pressure allows in place of ARB. Starting spironolactone as he is taking potassium supplementation with loop diuretic. If LV systolic function does not improve within 90 days of optimal therapy or following aortic valve replacement, would consider ICD for primary prevention (7) Diabetes mellitus, with long-term current use of insulin: HbA1C 8.4 in Nov. sugar reasonable Managed by Pharmacy (8) Primary hypothyroidism: TSH WNL (11/2020) -Continue levothyroxine 100 mcg p.o. daily (9) Pancreatic insufficiency: -Continue pancreatic enzymes twice daily (10) GERD without esophagitis: -Continue pantoprazole 40 mg p.o. every morning (11) DVT prophylaxis: -Lovenox 40mg SQ daily Admission and Anticipated Discharge Date Admission Date: December 19, 2020 Supervising Attestation I personally examined the patient and verified all [place] points of history and exam, discussed case, and agree with decision making with [place] MS2 Feeling better breathing better. Understandably nervous about going home. Case discussed with cardiology. He is set up for valve clinic at [place] appointment to hopefully be scheduled in the near future. Vitals noted, in general he is awake and alert pleasant no distress. HEENT normocephalic atraumatic mucous membranes moist. Breathing unlabored no accessory muscle use good effort. Skin shows no rashes no pallor or icterus. Neuro shows cranial nerves II through XII be grossly intact gross motor and sensory intact. Acute on chronic diastolic CHF with acute diastolic CHF subsequent to NSTEMI present on admission, in the setting of severe coronary diseaseimproving clinically. Continue to diurese given that he seems to be fairly brittle and has little margin of air. We will work on trying to get him to about as dry as we safely can prior to discharge home. This will also shorten the time that he is left to his own devices between this readmission and his valve clinic appointmentas I suspect improvement in his aortic stenosis would buy him more margin of error. We have continue to talk about the importance of sodium restriction, and we will continue to adjust medicationsadd Entresto. Continue to diurese. Otherwise as above Subjective Pt is feeling better today. He is breathing better and able to do more things around his room. He is not back to baseline but is improving. He wants to be able to walk around more when possible. Pt spoke with cardiology and is aware of the TAVR procedure. He is a little hesitant about the procedure, but is willing to be evaluated by the valve clinic at [facility]. He will be following up with Dr. Trotter in the outpatient setting as well. No new complaints Review of Systems Constitutional: no fever and no chills Respiratory: no cough and no chest congestion Cardiovascular: no chest pain and no dyspnea at rest Gastrointestinal: no abdominal pain, no nausea and no vomiting Genitourinary: no decreased urination Integumentary: no rash and no new lesions Physical Exam Physical Exam: Gen.: No acute distress. Alert and oriented. Neck: Mild JVD. Hepatic jugular reflux. Normal carotid upstrokes bilaterally. Cardiac: RRR. Normal S1-S2. 2/6 mid peaking systolic ejection murmur heard best at right upper sternal border. No rubs or gallops. Respiratory: Decreased breath sounds bilaterally, otherwise clear to auscultation bilaterally without wheezes, rales, or rhonchi. Abdomen: Soft, nontender, nondistended, with normoactive bowel sounds. No bruits noted. Extremities: 2+ radial pulses bilaterally. 2+ posterior tibialis pulses bilaterally. 1+ bilateral lower extremity edema in dependent areas. No cyanosis. Constitutional: well developed; + not well nourished and no acute distress Eyes: + anicteric sclerae; normal pupil size ENMT: external ear and nose normal, oropharynx normal Neck: trachea midline Cardiovascular: Extremities: + pedal edema (1+ pre-tibial) Skin: no rashes, warm and dry Neurologic: moves all extremities and awake; not confused Psychiatric: A+Ox3, euthymic affect Results & Data ([facility]) Vital Signs (Past 12 Hours) Vital Signs Temp Pulse Pulse Resp BP BP Pulse Ox 12/20/20 07:24 36.5 C 57 L 20 114/74 95 12/20/20 07:10 62 12/20/20 04:00 37.2 C 64 20 110/63 96 12/20/20 01:00 68 12/19/20 23:06 36.9 C 71 20 92/56 L 93
[2020-12-20] MEDS: VITAMIN B COMPLEX TAB PO SCH (08:33)
[2020-12-20] MEDS: SPIRONOLACTONE 25 MG TAB PO SCH (08:33)
[2020-12-20] MEDS: PANCREAZE (LIPASE 10,500U) CAP PO SCH ×2 (08:33→17:24)
[2020-12-20] MEDS: METOPROLOL SUCC 50MG EXT REL TAB PO SCH (08:34)
[2020-12-20] MEDS: BUMETANIDE 2 MG in SYRINGE 0 ML IV SCH (08:34)
[2020-12-20] MEDS: RANOLAZINE 500 MG ER TAB PO SCH ×2 (08:34→20:47)
[2020-12-20] MEDS: LATANOPROST 0.005% OP SOLN 2.5 ML BTL OP SCH (08:35)
[2020-12-20] MEDS: INSULIN HUMAN NPH SC SCH ×2 (08:36→17:25)
[2020-12-20] MEDS: MULTIVITAMIN TAB PO SCH (08:36)
[2020-12-20] MEDS: INSULIN ASPART 100 UNITS/ML 3 ML PEN SC SCH ×4 (08:37→20:48)
--- NOTE | 2020-12-20 09:38 | Pharmacy Report ---
Pharmacy Glycemic Short Note 2 - Date of Service December 20, 2020 - Glycemic Short BSG Results (Last 24 hours): OUTPATIENT ANTIDIABETIC REGIMEN: * NPH 70 units AM + 66 units PM * Regular 40 units AM + 36 units PM * HbA1c = 8.4% (11/30/20) ASSESSMENT: 12/20: * Law received a total of 42 units of insulin yesterday (significant decrease from home regimen) * 25 units basal + 17 units bolus * BSGs were [id number] mg/dL * Patient had another hypoglycemic event last evening requiring 30 grams of carbohydrates to treat. He did feel clammy and diaphoretic. Believe this is secondary to too much NPH being administered with breakfast. * Fasting BSG this AM was controlled at 145 mg/dL. * Given hypoglycemia, will decrease NPH dose this morning by 60% to hopefully prevent hypoglycemia this evening. If dinner BSG is low, will hold evening NPH dose again. * If postprandials trend down, will loosen correction factor and carb ratio as well. Will also loosen goal range today to provide less co rrectional/prandial insulin. 12/19: * Mr. Ca is an 85 yo M admitted secondary to shortness of breath and heart failure exacerbation. He was recently admitted at [facility] from 12/10-12/12 for similar issues. He is well known to the pharmacy glycemic service. * Random BSG was 277 mg/dL in the ED yesterday upon admission. He was not given any insulin. Upon transfer to the floor, patient's BSG was 51 mg/dL. Per RN note, he received 30 grams of carbs per hypoglycemia protocol. 15 minutes later, BSG was still low at 59 mg/dL so patient received another 30 grams of carbs per hypoglycemia protocol as well as dinner tray. No documentation of how many carbs were consumed with dinner. 15 minutes later, BSG was up to 73 mg/dL. * Mr. Ca did take 70 units of NPH and 40 units in the morning prior to admission per his outpatient regimen. However, he then did not eat until dinner which is the likely cause of this hypoglycemic event. * BSGs throughout the night were 94-134-94 mg/dL. He did not receive any further insulin yesterday. * Fasting BSG was 153 mg/dL this AM. Will start NPH BID with meals and Novolog based on previous admission data which controlled patient well. PLAN FOR INPATIENT GLYCEMIC CONTROL: * Basal insulin - decreased * NPH 0-15 units SQ BID per scale * 0 units for BSG < 120 mg/dL; 10 units for BSG 120-180 mg/dL; 15 units for BSG > 180 mg/dL * Bolus insulin - loosened goal range * NovoLog per scale ACHS or Q6hrs while NPO * Goal Range: Low 120 mg/dL - High 150 mg/dL * Correction Factor: 15 mg/dL/unit * Nutritional / Prandial insulin per carb ratio of 1 unit per 6 grams CHO consumed PLAN FOR DISCHARGE: * To be determined
[2020-12-20] MEDS: POTASSIUM CHLORIDE 10 MEQ TABCR PO SCH (09:39)
[2020-12-20] MEDS: PANTOprazole 40 MG TAB PO SCH (09:39)
[2020-12-20] MEDS: LOSARTAN POTASSIUM 25 MG TAB PO SCH (09:39)
[2020-12-20] MEDS: ISOSORBIDE MONO EXTENDED REL 60 MG TABCR PO SCH (09:39)
--- NOTE | 2020-12-20 11:56 | Cardiology Progress Note ---
Date of Service December 20, 2020 Assessment & Plan (1) Acute systolic (congestive) heart failure: (2) Severe aortic stenosis: (3) CAD (coronary artery disease): (4) S/P CABG (coronary artery bypass graft): (5) Non-ST elevation (NSTEMI) myocardial infarction: (6) Cardiomyopathy: ASSESSMENT/PLAN: 1. Acute systolic CHF: LV systolic function is now significantly reduced compared to prior echo. Diuresing nicely. May be mildly hypervolemic but overall much improved. Can continue current diuretic for now but anticipate transition to oral diuretic soon. Monitor for azotemia. Spironolactone 25 mg daily initiated today. May be able to discontinue potassium chloride while on spironolactone. Continue metoprolol succinate 200 mg daily. Start low-dose Entresto tomorrow in place of losartan. 2. Significant aortic stenosis: His aortic stenosis on most recent echo appeared moderate to severe however this is in the setting of depressed LV systolic function. This likely underestimates his stenosis. His valve area on 12/04/2020 echo was 0.75 cm2. Recommended referral for TAVR evaluation. He is agreeable. Office staff has been asked to start making this appointment with echo and cath images placed on disc to send to [facility] and also carry in hand. 3. CAD s/p CABG x 2: No angina but elevated troponin. Had severe disease that was treated medically during September 2020 catheterization. Continue aspirin 81 mg daily. Continue high-intensity statin therapy and beta-johnie. He did not present with acute coronary syndrome. This is likely due to demand ischemia in the setting of CHF exacerbation, significant aortic stenosis, and underlying CAD. 4. NSTEMI: He did not present with acute coronary syndrome or his previous anginal symptom. Elevated troponin/[place] likely due to CHF exacerbation, significant aortic stenosis, and underlying CAD. Medically managed. 5. Cardiomyopathy: Likely due to significant aortic stenosis and underlying CAD. Continue metoprolol succinate 200 mg daily. Replacing ARB with Entresto starting tomorrow. Starting spironolactone as he is taking potassium supplementation with loop diuretic. If LV systolic function does not improve within 90 days of optimal therapy or following aortic valve replacement, would consider ICD for primary prevention. 6. Disposition: Cardiology will continue to follow. On discharge, recommend very close follow-up in the Heart failure program as well as his primary production maintenance mechanic, Dr. Trotter. Patient care discussed with Dr. Santos of the primary hospitalist service. Admission and Anticipated Discharge Date Admission Date: December 19, 2020 Subjective He feels better today than yesterday. Breathing continues to improve. He does not yet think that he is at baseline. He denies orthopnea but sleeps with his head elevated somewhat. His edema has improved. He denies chest pain, syncope, palpitations, or bleeding. He does not want to go home today. He spoke with his daughters yesterday and he is agreeable to be evaluated at [facility] for TAVR consideration. He has a ride available starting next Friday through of the next week and has requested that his appointment be made in that time frame. Review of systems: As above. Physical Exam Physical Exam: Gen.: No acute distress. Alert and oriented. HEENT: Anicteric sclera. Neck: No appreciable JVD. Mild Hepatic jugular reflux. Cardiac: Regular. Normal S1-S2. 2/6 mid peaking systolic ejection murmur heard best at right upper sternal border. No rubs or gallops. Pulmonary: Decreased breath sounds bilaterally, otherwise clear to auscultation bilaterally without wheezes, rales, or rhonchi. Abdomen: Soft, nontender, nondistended, with normoactive bowel sounds. No bruits noted. Extremities: 2+ radial pulses bilaterally. 2+ posterior tibialis pulses bilaterally. Trace bilateral lower extremity edema in dependent areas. No cyanosis. Psychiatric: Affect appears appropriate. Results & Data ([facility]) Vital Signs (Past 12 Hours) Vital Signs Temp Pulse Pulse Resp BP Pulse Ox 12/20/20 11:24 36.3 C L 65 20 98/51 L 92 12/20/20 07:24 36.5 C 57 L 20 114/74 95 12/20/20 07:10 62 12/20/20 04:00 37.2 C 64 20 110/63 96 12/20/20 01:00 68 Intake & Output 12/18/20 12/19/20 12/20/20 12/21/20 06:59 06:59 06:59 06:59 Intake Total 315 / 315 1100 / 1100 Output Total 3925 / 3925 4725 / 4725 Balance -3610 / -3610 -3625 / -3625 Weight 246 lb 0.574 oz 233 lb 0.458 oz Laboratory Results Laboratory Results - last 24 hr 12/19/20 12/19/20 12/19/20 16:42 16:43 17:06 Sodium Potassium Chloride Carbon Dioxide Anion Gap BUN Creatinine Est Cr Clr Drug Dosing Est GFR ( Amer) Est GFR (Non-Af Amer) BUN/Creatinine Ratio Glucose POC Glucose 51 L* 57 L* 72 Calcium 12/19/20 12/20/20 12/20/20 20:12 03:57 05:50 Sodium 136 Potassium 3.8 Chloride 101 Carbon Dioxide 28 Anion Gap 7.0 BUN 23 H Creatinine 1.33 Est Cr Clr Drug Dosing 48.7 Est GFR ( Amer) 56.5 Est GFR (Non-Af Amer) 48.7 BUN/Creatinine Ratio 17.3 Glucose 143 H POC Glucose 106 H 190 H Calcium 9.0 12/20/20 12/20/20 07:35 11:42 Sodium Potassium Chloride Carbon Dioxide Anion Gap BUN Creatinine Est Cr Clr Drug Dosing Est GFR ( Amer) Est GFR (Non-Af Amer) BUN/Creatinine Ratio Glucose POC Glucose 145 H 261 H Calcium Diagnostic Findings Telemetry personally reviewed: No arrhythmia noted. Sinus rhythm. Medications Administered Current Inpatient Medications Acetaminophen (Acetaminophen 325 Mg Tab) 650 mg PO Q4H PRN PRN Reason: Pain or Fever Stop: 01/17/21 14:57 Al Hydrox/Mg Hydrox/Simethicone (Aluminum/Magnesium Susp 30 Ml Udc) 15 ml PO Q4H PRN PRN Reason: Dyspepsia Stop: 01/17/21 14:57 Lipase/Protease/Amylase (Pancreaze (Lipase 10,500u) Cap) 1 cap PO BIDM ARIAN Stop: 01/17/21 16:59 Last Admin: 12/20/20 08:33 Dose: 1 cap Documented by: Aspirin (Aspirin 81 Mg Ectab) 81 mg PO QPM ARIAN Stop: 01/17/21 20:59 Last Admin: 12/19/20 20:30 Dose: 81 mg Documented by: Atorvastatin Calcium (Atorvastatin 40 Mg Tab) 40 mg PO QPM [facility] Stop: 01/18/21 20:59 Last Admin: 12/19/20 20:30 Dose: 40 mg Documented by: Clopidogrel Bisulfate (Clopidogrel Bisulfate 75 Mg Tab) 75 mg PO QPM [facility] Stop: 01/17/21 20:59 Last Admin: 12/19/20 20:31 Dose: 75 mg Documented by: Dextrose (Dextrose 50% 50 Ml Syringe) 25 - 50 ml IV UD PRN; Protocol PRN Reason: Hypoglycemia Protocol Stop: 01/17/21 14:57 Enoxaparin Sodium (Enoxaparin Inj 40 Mg/0.4 Ml Syr) 40 mg SQ QPM [facility] Stop: 01/17/21 20:59 Last Admin: 12/19/20 20:31 Dose: 40 mg Documented by: Glucagon (Glucagon For Inj 1 Mg Vial) 1 mg SQ UD PRN; Protocol PRN Reason: Hypoglycemia Protocol Stop: 01/17/21 14:57 Glucose (Glucose 10 Tabs/Tube) 4 - 8 tabs PO UD PRN; Protocol PRN Reason: Hypoglycemia Protocol Stop: 01/17/21 14:57 Glucose (Glucose 40% Gel 15 Gm Tube) 15 - 30 gm PO UD PRN; Protocol PRN Reason: Hypoglycemia Protocol Stop: 01/17/21 14:57 Bumetanide 2 mg/ Syringe 8 mls @ 4 mls/min IV BID@0900,1700 [facility] Stop: 01/17/21 16:59 Last Admin: 12/20/20 08:34 Dose: 4 mls/min Documented by: Insulin Aspart (Insulin Aspart 100 Units/Ml 3 Ml Pen) 0 units SC ACHS [facility]; Protocol Stop: 01/17/21 16:29 Last Admin: 12/20/20 08:37 Dose: 9 units Documented by: Insulin Human NPH (Insulin Human Nph) 0 units SC BIDM [facility]; Protocol Stop: 01/18/21 08:14 Last Admin: 12/20/20 08:36 Dose: 10 units Documented by: Isosorbide Mononitrate (Isosorbide [place] Extended Rel 60 Mg Tabcr) 60 mg PO DAILY [facility] Stop: 01/18/21 08:59 Last Admin: 12/20/20 09:39 Dose: 60 mg Documented by: Latanoprost (Latanoprost 0.005% Op Soln 2.5 Ml Btl) 1 drops OP DAILY [facility] Stop: 01/18/21 08:59 Last Admin: 12/20/20 08:35 Dose: 1 drops Documented by: Levothyroxine Sodium (Levothyroxine Sodium 100 Mcg Tablet) [facility] Stop: 01/18/21 06:29 Last Admin: 12/20/20 05:53 Dose: 100 mcg Documented by: Losartan Potassium (Losartan Potassium 25 Mg Tab) 25 mg PO DAILY [facility] Stop: 01/18/21 08:59 Last Admin: 12/20/20 09:39 Dose: 25 mg Documented by: Melatonin (Melatonin 3 Mg Tab) 6 mg PO HS PRN PRN Reason: Sleep Stop: 01/18/21 22:36 Metoprolol Succinate (Metoprolol Succ 50mg Ext Rel Tab) [facility] Stop: 01/18/21 08:59 Last Admin: 12/20/20 08:34 Dose: 200 mg Documented by: Miscellaneous (Carbohydrates For Hypoglycemia ) 15 - 30 gm PO UD PRN PRN Reason: Hypoglycemia Protocol Stop: 01/17/21 14:57 Last Admin: 12/19/20 16:48 Dose: 30 gm Documented by: Miscellaneous Information (Pharmacy Glycemic Mgmt Consult) 1 ea N/A UD PRN; Protocol PRN Reason: Consult Stop: 01/17/21 15:25 Multivitamins (Multivitamin Tab) 1 tab PO [facility] Stop: 01/18/21 08:59 Last Admin: 12/20/20 08:36 Dose: 1 tab Documented by: Nitroglycerin (Nitroglycerin Sl 0.4 Mg/Tab Tab) 0.4 mg SL UD PRN PRN Reason: Chest Pain Stop: 01/17/21 14:57 Ondansetron HCl (Ondansetron Inj 2 Mg/Ml 2 Ml Vial) 4 mg IV Q6H PRN PRN Reason: Nausea Stop: 01/17/21 14:57 Pantoprazole Sodium (Pantoprazole 40 Mg Tab) 40 mg PO [facility] Stop: 01/18/21 08:59 Last Admin: 12/20/20 09:39 Dose: 40 mg Documented by: Polyethylene Glycol (Polyethylene (Miralax) 17 Gm Pack) 17 gm PO DAILY PRN PRN Reason: Constipation Stop: 01/17/21 14:57 Potassium Chloride (Potassium Chloride 10 Meq Tabcr) 10 meq PO QAM [facility] Stop: 01/18/21 08:59 Last Admin: 12/20/20 09:39 Dose: 10 meq Documented by: Ranolazine (Ranolazine 500 Mg Er Tab) 500 mg PO BID [facility] Stop: 01/17/21 20:59 Last Admin: 12/20/20 08:34 Dose: 500 mg Documented by: Spironolactone (Spironolactone 25 Mg Tab) 25 mg PO QAM [facility] Stop: 01/19/21 08:59 Last Admin: 12/20/20 08:33 Dose: 25 mg Documented by: Vitamin B Complex (Vitamin B Complex Tab) 1 tab PO QAM [facility] Stop: 01/18/21 08:59 Last Admin: 12/20/20 08:33 Dose: 1 tab Documented by: PG Care Time/CCT Total # of Minutes Spent Total Time Spent with Patient: Total time spent is greater than 50% in coordination of care (as documented) at patient's floor/unit and/or counseling patient: Coding Level of Care Code 47016 Subseq Hosp Care Lvl 3 Diagnoses Acute systolic (congestive) heart failure I50.21 Severe aortic stenosis I35.0 CAD (coronary artery disease) I25.10 Coronary Disease-Associated Artery/Lesion type: [place] artery [place] vs. transplanted heart: [place] heart Associated angina: angina presence unspecified S/P CABG (coronary artery bypass graft) Z95.1 Non-ST elevation (NSTEMI) myocardial infarction I21.4 Cardiomyopathy I42.9 (1) CAD (coronary artery disease) Coronary Disease-Associated Artery/Lesion type: [place] artery [place] vs. transplanted heart: [place] heart Associated angina: angina presence unspecified Qualified Code(s): I25.10 - Atherosclerotic heart disease of [place] coronary artery without angina pectoris
--- NOTE | 2020-12-20 12:46 | Billing Data ---
Date of Service December 20, 2020 Coding Level of Care Code 08452 Subseq Hosp Care Lvl 3
[2020-12-20] MEDS: BUMETANIDE 1 MG in SYRINGE 0 ML IV SCH (17:24)
[2020-12-20] MEDS: ATORVASTATIN 40 MG TAB PO SCH (20:47)
[2020-12-20] MEDS: ASPIRIN 81 MG ECTAB PO SCH (20:47)
[2020-12-20] MEDS: CLOPIDOGREL BISULFATE 75 MG TAB PO SCH (20:47)
[2020-12-20] MEDS: ENOXAPARIN INJ 40 MG/0.4 ML SYR SQ SCH (20:48)
[2020-12-20] MEDS: MELATONIN 3 MG TAB PO PRN (20:55)
[2020-12-21] MEDS: LEVOTHYROXINE SODIUM 100 MCG TABLET PO SCH (05:42)
[2020-12-21 07:34] LABS: Calcium 9.4 mg/dl (8.5-10.1); Creatinine Clr Calc Pharmacy 46.8 ml/min; Est GFR (Non-African American) 46.6; Potassium 4.2 mmol/L (3.5-5.1)
--- NOTE | 2020-12-21 08:33 | Hospitalist Progress Note ---
Date of Service December 21, 2020 Assessment & Plan (1) Acute on chronic diastolic (congestive) heart failure: Law Ca is an 85-year-old male w/ PMH of CAD status post CABG, history of preserved EF heart failure, moderate to severe aortic stenosis, moderate MR, pulmonary hypertension, hyperlipidemia, DM2 on insulin, obesity, hypertension who is admitted due to CHF exacerbation. Acute on chronic CHF - previously preserved EF but now reduced on echo as below - Echo: Mod to severely reduced sys fxn (EF 30-35%); global hypokinesis w/ some areas of akinesis (see Echo results from 12/19) - LV sys function declined compared to echo on 12/04 - Switch to Bumex 2mg PO qAM starting tomorrow morning - Continue spironolactone 25mg PO qAM - Continue Entresto 24/26mg PO BID - Continue metoprolol succinate 200mg daily - Low Na, Heart healthy, fluid restrict 1500ml diet - Daily weights - Strict I's and O's Severe aortic stenosis - Suspect major cause of congestive heart failure as above - Cardiology consulted: - Recommended referral for TAVR evaluation - Office staff making appt for patient CAD (coronary artery disease) - STEMI in 09/22 s/p CABG - Continue dual antiplatelet therapy with aspirin and clopidogrel - Continue metoprolol as abovem losartan discontinued in place of Entresto as above - Increase atorvastatin to 40mg daily NSTEMI - changes on Echo as above and elevated troponin point to likely [place], but no real ST changes on EKG from earlier in December - Cardiology consulted: - He did not present with acute coronary syndrome or his previous anginal symptom. Elevated troponin/[place] likely due to CHF exacerbation, significant aortic stenosis, and underlying CAD. Medically managed - Med management as above Diabetes Mellitus - long-term insulin use - HbA1C 8.4 in 11/23 - Pharmacy consulted for glycemic control Primary Hypothyroidism - TSH normal in - Continue levothyroxine 100 mcg p.o. daily Pancreatic insufficiency - Continue pancreatic enzymes twice daily GERD without esophagitis - Continue pantoprazole 40 mg p.o. every morning FENGI: Low Na, Heart Healthy, Fluid restriction (1500ml), CC/DM2 DVT prophylaxis: Lovenox 40mg SQ daily Dispo: Med/Tele for cardiac monitoring in setting of recent NSTEMI Code: DNR/DNI (2) CAD (coronary artery disease): (3) Elevated troponin: (4) Severe aortic stenosis: (5) Diabetes mellitus, with long-term current use of insulin: (6) Primary hypothyroidism: (7) Pancreatic insufficiency: (8) GERD without esophagitis: Admission and Anticipated Discharge Date Admission Date: December 19, 2020 Supervising Physician Co-Signing Physician Notes I personally examined the patient and verified all [place] points of history and exam, discussed case, and agree with decision making with Dr Shea. Continues to feel better. Walked the halls without a whole lot of dyspnea. Given his track record of frequent readmissions, he would prefer to be as dry as he safely can before being discharged home, which is reasonable. Case discussed with cardiology, input appreciated. Vitals noted, in general he is awake and alert pleasant no distress. HEENT normocephalic atraumatic mucous membranes moist. Breathing unlabored no accessory muscle use good effort. Skin shows no rashes no pallor or icterus. Neuro shows cranial nerves II through XII be grossly intact gross motor and sensory intact. Acute on chronic diastolic CHF with acute diastolic CHF subsequent to NSTEMI present on admission, in the setting of severe coronary diseasecontinues to show good improvement. Continue to diurese given that he seems to be fairly brittle and has little margin of air. We will transition to p.o. though to ensure that he continues to affect a decent diuresis off of IVs, given that lack of absorption was also in the differential of his brittle nature after being as an outpatient. Continue to work on trying to get him to about as dry as we safely can prior to discharge home. This will also shorten the time that he is left to his own devices between this readmission and his valve clinic appointmentas I suspect improvement in his aortic stenosis would buy him more margin of error. Continue Entresto. Hopefully home in the next day or 2.. Subjective No acute events overnight. Patient seen sitting at bedside chair today. No complaints or concerns, says his urine output has decreased slightly since yesterday. Not feeling SOB or particularly fatigued. He denies CP, palp, SOB, n/v, diarrhea, constipation. Review of Systems Review of Systems: All systems reviewed & are unremarkable except as noted in Subjective Physical Exam Physical Exam: Gen: WD/WN, obese, NAD. Cardiac: RRR. Normal S1-S2. 2/6 systolic ejection murmur at right upper sternal border. No rubs or gallops. Respiratory: Clear to auscultation bilaterally without wheezes, rales, or rhonchi. Abdomen: Soft, nontender, nondistended, normoactive bowel sounds. No bruits noted. Psych: A&Ox3, euthymic affect. Speech normal. Results & Data Results & Data ([facility]) Vital Signs (Past 12 Hours) Vital Signs Temp Pulse Pulse Resp BP BP Pulse Ox 12/21/20 07:58 36.5 C 62 18 108/68 95 12/21/20 07:26 72 12/21/20 03:40 36.7 C 114 H 20 104/58 L 98 12/21/20 00:21 69 12/20/20 23:25 37.0 C 72 20 88/51 L 96 Resident Activity Tracking Resident Involvement: Resident Care Provided Care Provided: Adult Hospital Medicine (1) CAD (coronary artery disease) Associated angina: angina presence unspecified Coronary Disease-Associated Artery/Lesion type: [place] artery [place] vs. transplanted heart: [place] heart Qualified Code(s): I25.10 - Atherosclerotic heart disease of [place] coronary artery without angina pectoris
[2020-12-21] MEDS: SPIRONOLACTONE 25 MG TAB PO SCH (08:36)
[2020-12-21] MEDS: RANOLAZINE 500 MG ER TAB PO SCH ×2 (08:36→21:05)
[2020-12-21] MEDS: ISOSORBIDE MONO EXTENDED REL 60 MG TABCR PO SCH (08:37)
[2020-12-21] MEDS: PANCREAZE (LIPASE 10,500U) CAP PO SCH ×2 (08:37→17:53)
[2020-12-21] MEDS: POTASSIUM CHLORIDE 10 MEQ TABCR PO SCH (08:38)
[2020-12-21] MEDS: METOPROLOL SUCC 50MG EXT REL TAB PO SCH (08:38)
[2020-12-21] MEDS: MULTIVITAMIN TAB PO SCH (08:38)
[2020-12-21] MEDS: PANTOprazole 40 MG TAB PO SCH (08:38)
[2020-12-21] MEDS: VITAMIN B COMPLEX TAB PO SCH (08:38)
[2020-12-21] MEDS: SACUBITRIL-VALSARTAN 24-26 MG TAB PO SCH ×2 (08:39→21:05)
[2020-12-21] MEDS: BUMETANIDE 1 MG in SYRINGE 0 ML IV SCH (08:39)
[2020-12-21] MEDS: LATANOPROST 0.005% OP SOLN 2.5 ML BTL OP SCH (08:39)
[2020-12-21] MEDS: INSULIN ASPART 100 UNITS/ML 3 ML PEN SC SCH ×4 (08:42→21:05)
[2020-12-21] MEDS: INSULIN HUMAN NPH SC SCH ×2 (08:43→17:54)
--- NOTE | 2020-12-21 10:15 | Pharmacy Report ---
Pharmacy Glycemic Short Note 2 - Date of Service December 21, 2020 - Glycemic Short BSG Results (Last 24 hours): OUTPATIENT ANTIDIABETIC REGIMEN: * NPH 70 units AM + 66 units PM * Regular 40 units AM + 36 units PM * HbA1c = 8.4% (11/30/20) ASSESSMENT: 12/21: * Received a total of 64 units of insulin yesterday * 20 units basal + 44 units bolus * BSGs were acceptable: [phone] mg/dL * Fasting BSG this AM is elevated at 196 mg/dL * Will increase NPH scale today to account for this * Should help to split regimen more 50/50 with basal/bolus insulin * Lunchtime postprandial has been consistently higher than other BSGs * If this trend continues, may try a tighter carb ratio with breakfast tomorrow 12/20: * Law received a total of 42 units of insulin yesterday (significant decrease from home regimen) * 25 units basal + 17 units bolus * BSGs were [phone] mg/dL * Patient had another hypoglycemic event last evening requiring 30 grams of carbohydrates to treat. He did feel clammy and diaphoretic. Believe this is secondary to too much NPH being administered with breakfast. * Fasting BSG this AM was controlled at 145 mg/dL. * Given hypoglycemia, will decrease NPH dose this morning by 60% to hopefully prevent hypoglycemia this evening. If dinner BSG is low, will hold evening NPH dose again. * If postprandials trend down, will loosen correction factor and carb ratio as well. Will also loosen goal range today to provide less correctional/prandial insulin. 12/19: * Mr. Ca is an 85 yo M admitted secondary to shortness of breath and heart failure exacerbation. He was recently admitted at [facility] from 12/10-12/12 for similar issues. He is well known to the pharmacy glycemic service. * Random BSG was 277 mg/dL in the ED yesterday upon admission. He was not given any insulin. Upon transfer to the floor, patient's BSG was 51 mg/dL. Per RN note, he received 30 grams of carbs per hypoglycemia protocol. 15 minutes later, BSG was still low at 59 mg/dL so patient received another 30 grams of carbs per hypoglycemia protocol as well as dinner tray. No documentation of how many carbs were consumed with dinner. 15 minutes later, BSG was up to 73 mg/dL. * Mr. Ca did take 70 units of NPH and 40 units in the morning prior to admission per his outpatient regimen. However, he then did not eat until dinner which is the likely cause of this hypoglycemic event. * BSGs throughout the night were 94-134-94 mg/dL. He did not receive any further insulin yesterday. * Fasting BSG was 153 mg/dL this AM. Will start NPH BID with meals and Novolog based on previous admission data which controlled patient well. PLAN FOR INPATIENT GLYCEMIC CONTROL: * Basal insulin - increased * NPH 10-20 units SQ BID per scale * 10 units for BSG < 120 mg/dL; 15 units for BSG 120-180 mg/dL; 20 units for BSG > 180 mg/dL * Bolus insulin - tightened CR * NovoLog per scale ACHS or Q6hrs while NPO * Goal Range: Low 120 mg/dL - High 150 mg/dL * Correction Factor: 15 mg/dL/unit * Nutritional / Prandial insulin per carb ratio of 1 unit per 5 grams CHO consumed PLAN FOR DISCHARGE: * HbA1c was 8.4% on 11/30/20. HbA1c continues to trend up since last May. Goal HbA1c for this patient would be less than 8% given his age and comorbidities. * He was supposed to have a follow-up appointment with Endocrinology on 12/04/20 but no showed for the appointment. While inpatient, he requires significantly less insulin than what his outpatient regimen is. Therefore, I am hesitant to recommend any adjustments to insulin regimen upon discharge. * I would recommend that patient re-establish care with endocrinology upon discharge.
--- NOTE | 2020-12-21 15:20 | Cardiology Progress Note ---
Date of Service December 21, 2020 Assessment & Plan (1) Acute systolic (congestive) heart failure: (2) Severe aortic stenosis: (3) CAD (coronary artery disease): (4) S/P CABG (coronary artery bypass graft): (5) Non-ST elevation (NSTEMI) myocardial infarction: (6) Cardiomyopathy: ASSESSMENT/PLAN: 1. Acute systolic CHF: He appears rather euvolemic today. Discontinued intravenous diuretic this morning. Start Bumex 2 mg p.o. Q a.m. tomorrow. Continue spironolactone 25 mg daily and discontinue potassium supplementation. Continue metoprolol succinate 200 mg daily. Continue low-dose Entresto. Low- sodium diet, less than 2000 mg daily. Continue strict I's and O's and daily shaunna ghts. He continues to meet with heart failure program while here with very close follow-up scheduled for early next week. 2. Significant aortic stenosis: His aortic stenosis on most recent echo nina eared moderate to severe however this is in the setting of depressed LV systolic function. This likely underestimates his stenosis. His valve area on 12/04/2020 echo was 0.75 cm2. Recommended referral for TAVR evaluation. He is agreeable. Office staff has been asked to start making this appointment with echo and cath images placed on disc to [place] [facility] and also carry in hand. 3. CAD s/p CABG x 2: No angina. Had severe disease that was treated medically during September 2020 catheterization. Continue aspirin 81 mg daily. Continue high-intensity statin therapy and beta-johnie. He did not present with acute coronary syndrome. This is likely due to demand ischemia in the setting of CHF exacerbation, significant aortic stenosis, and underlying CAD. 4. NSTEMI: He did not present with acute coronary syndrome or his previous anginal symptom. Elevated troponin/[place] likely due to CHF exacerbation, significant aortic stenosis, and underlying CAD. Medically managed. No angina. 5. Cardiomyopathy: Likely due to significant aortic stenosis and underlying CAD. Continue metoprolol succinate 200 mg daily. Continue Entresto. Continue spironolactone. If LV systolic function does not improve within 90 days of optimal therapy or following aortic valve replacement, would consider ICD for primary prevention. 6. Disposition: Cardiology will continue to follow. On discharge, recommend very close follow-up in the Heart failure program as well as his primary geodetic surveyor technologist, Dr. Trotter. Patient care discussed with Dr. Santos of the primary hospitalist service. Dr. Trotter was also updated on patient's treatment plan. Admission and Anticipated Discharge Date Admission Date: December 19, 2020 Subjective He feels very well today. He denies shortness of breath, syncope, near-syncope, palpitations, chest pain, edema, or bleeding. He ambulated in the hallway without dyspnea. Review of systems: As above. Physical Exam Physical Exam: Gen.: No acute distress. Alert and oriented. HEENT: Anicteric sclera. Neck: No appreciable JVD. No appreciated hepatic jugular reflux. Cardiac: Regular. Normal S1-S2. 2/6 mid-late peaking systolic ejection murmur heard best at right upper sternal border. No rubs or gallops. Pulmonary: Decreased breath sounds bilaterally, otherwise clear to auscultation bilaterally without wheezes, rales, or rhonchi. Abdomen: Soft, nontender, nondistended, with normoactive bowel sounds. No bruits noted. Extremities: 2+ radial pulses bilaterally. 2+ posterior tibialis pulses bilaterally. Trace bilateral lower extremity edema in dependent areas. No cyanosis. Psychiatric: Affect appears appropriate. Results & Data ([facility]) Vital Signs (Past 12 Hours) Vital Signs Temp Pulse Pulse Resp BP BP Pulse Ox 12/21/20 11:33 36.8 C 61 18 113/70 98 12/21/20 07:58 36.5 C 62 18 108/68 95 12/21/20 07:26 72 12/21/20 03:40 36.7 C 114 H 20 104/58 L 98 Intake & Output 12/19/20 12/20/20 12/21/20 12/22/20 06:59 06:59 06:59 06:59 Intake Total 315 / 315 1100 / 1100 952 / 952 515 / 515 Output Total 3925 / 3925 4725 / 4725 2750 / 2750 750 / 750 Balance -3610 / -3610 -3625 / -3625 -1798 / -1798 -235 / -235 Weight 246 lb 0.574 oz 233 lb 0.458 oz 231 lb 0.711 oz Laboratory Results Laboratory Results - last 24 hr 12/20/20 12/20/20 12/21/20 16:34 20:47 06:04 Sodium 136 Potassium 4.2 Chloride 101 Carbon Dioxide 27 Anion Gap 8.0 BUN 30 H Creatinine 1.38 Est Cr Clr Drug Dosing 46.8 Est GFR ( Amer) 54.0 Est GFR (Non-Af Amer) 46.6 BUN/Creatinine Ratio 22.0 H Glucose 185 H POC Glucose 164 H 126 H Calcium 9.4 12/21/20 12/21/20 12/21/20 07:49 11:13 11:14 Sodium Potassium Chloride Carbon Dioxide Anion Gap BUN Creatinine Est Cr Clr Drug Dosing Est GFR ( Amer) Est GFR (Non-Af Amer) BUN/Creatinine Ratio Glucose POC Glucose 196 H 310 H* 297 H Calcium Diagnostic Findings Telemetry personally reviewed: Sinus rhythm. No arrhythmia noted. Medications Administered Current Inpatient Medications Acetaminophen (Acetaminophen 325 Mg Tab) 650 mg PO Q4H PRN PRN Reason: Pain or Fever Stop: 01/17/21 14:57 Al Hydrox/Mg Hydrox/Simethicone (Aluminum/Magnesium Susp 30 Ml Udc) 15 ml PO Q4H PRN PRN Reason: Dyspepsia Stop: 01/17/21 14:57 Lipase/Protease/Amylase (Pancreaze (Lipase 10,500u) Cap) 1 cap PO BIDM ARIAN Stop: 01/17/21 16:59 Last Admin: 12/21/20 08:37 Dose: 1 cap Documented by: Aspirin (Aspirin 81 Mg Ectab) 81 mg PO QPM ARIAN Stop: 01/17/21 20:59 Last Admin: 12/20/20 20:47 Dose: 81 mg Documented by: Atorvastatin Calcium (Atorvastatin 40 Mg Tab) 40 mg PO QPM ARIAN Stop: 01/18/21 20:59 Last Admin: 12/20/20 20:47 Dose: 40 mg Documented by: Bumetanide (Bumetanide 1 Mg Tab) 2 mg PO QAM [facility] Stop: 01/21/21 08:59 Clopidogrel Bisulfate (Clopidogrel Bisulfate 75 Mg Tab) 75 mg PO QPM ARIAN Stop: 01/17/21 20:59 Last Admin: 12/20/20 20:47 Dose: 75 mg Documented by: Dextrose (Dextrose 50% 50 Ml Syringe) 25 - 50 ml IV UD PRN; Protocol PRN Reason: Hypoglycemia Protocol Stop: 01/17/21 14:57 Enoxaparin Sodium (Enoxaparin Inj 40 Mg/0.4 Ml Syr) 40 mg SQ QPM ARIAN Stop: 01/17/21 20:59 Last Admin: 12/20/20 20:48 Dose: 40 mg Documented by: Glucagon (Glucagon For Inj 1 Mg Vial) 1 mg SQ UD PRN; Protocol PRN Reason: Hypoglycemia Protocol Stop: 01/17/21 14:57 Glucose (Glucose 10 Tabs/Tube) 4 - 8 tabs PO UD PRN; Protocol PRN Reason: Hypoglycemia Protocol Stop: 01/17/21 14:57 Glucose (Glucose 40% Gel 15 Gm Tube) 15 - 30 gm PO UD PRN; Protocol PRN Reason: Hypoglycemia Protocol Stop: 01/17/21 14:57 Insulin Aspart (Insulin Aspart 100 Units/Ml 3 Ml Pen) 0 units SC ACHS [facility]; Protocol Stop: 01/17/21 16:29 Last Admin: 12/21/20 12:30 Dose: 18 units Documented by: Insulin Human NPH (Insulin Human Nph) 0 units SC BIDM [facility]; Protocol Stop: 01/18/21 08:14 Last Admin: 12/21/20 08:43 Dose: 20 units Documented by: Isosorbide Mononitrate (Isosorbide [place] Extended Rel 60 Mg Tabcr) 60 mg PO DAILY [facility] Stop: 01/18/21 08:59 Last Admin: 12/21/20 08:37 Dose: 60 mg Documented by: Latanoprost (Latanoprost 0.005% Op Soln 2.5 Ml Btl) 1 drops OP DAILY [facility] Stop: 01/18/21 08:59 Last Admin: 12/21/20 08:39 Dose: 1 drops Documented by: Levothyroxine Sodium (Levothyroxine Sodium 100 Mcg Tablet) 100 mcg PO DAILYBB [facility] Stop: 01/18/21 06:29 Last Admin: 12/21/20 05:42 Dose: 100 mcg Documented by: Melatonin (Melatonin 3 Mg Tab) 6 mg PO HS PRN PRN Reason: Sleep Stop: 01/18/21 22:36 Last Admin: 12/20/20 20:55 Dose: 6 mg Documented by: Metoprolol Succinate (Metoprolol Succ 50mg Ext Rel Tab) 200 mg PO QAM [facility] Stop: 01/18/21 08:59 Last Admin: 12/21/20 08:38 Dose: 200 mg Documented by: Miscellaneous (Carbohydrates For Hypoglycemia ) 15 - 30 gm PO UD PRN PRN Reason: Hypoglycemia Protocol Stop: 01/17/21 14:57 Last Admin: 12/19/20 16:48 Dose: 30 gm Documented by: Miscellaneous Information (Pharmacy Glycemic Mgmt Consult) 1 ea N/A UD PRN; Protocol PRN Reason: Consult Stop: 01/17/21 15:25 Multivitamins (Multivitamin Tab) 1 tab PO QAM [facility] Stop: 01/18/21 08:59 Last Admin: 12/21/20 08:38 Dose: 1 tab Documented by: Nitroglycerin (Nitroglycerin Sl 0.4 Mg/Tab Tab) 0.4 mg SL UD PRN PRN Reason: Chest Pain Stop: 01/17/21 14:57 Ondansetron HCl (Ondansetron Inj 2 Mg/Ml 2 Ml Vial) 4 mg IV Q6H PRN PRN Reason: Nausea Stop: 01/17/21 14:57 Pantoprazole Sodium (Pantoprazole 40 Mg Tab) 40 mg PO QAM [facility] Stop: 01/18/21 08:59 Last Admin: 12/21/20 08:38 Dose: 40 mg Documented by: Polyethylene Glycol (Polyethylene (Miralax) 17 Gm Pack) 17 gm PO DAILY PRN PRN Reason: Constipation Stop: 01/17/21 14:57 Potassium Chloride (Potassium Chloride 10 Meq Tabcr) 10 meq PO QAM [facility] Stop: 01/18/21 08:59 Last Admin: 12/21/20 08:38 Dose: 10 meq Documented by: Ranolazine (Ranolazine 500 Mg Er Tab) 500 mg PO BID [facility] Stop: 01/17/21 20:59 Last Admin: 12/21/20 08:36 Dose: 500 mg Documented by: Sacubitril/Valsartan (Sacubitril-Valsartan 24-26 Mg Tab) 1 tab PO BID [facility] Stop: 01/20/21 08:59 Last Admin: 12/21/20 08:39 Dose: 1 tab Documented by: Spironolactone (Spironolactone 25 Mg Tab) 25 mg PO QAM [facility] Stop: 01/19/21 08:59 Last Admin: 12/21/20 08:36 Dose: 25 mg Documented by: Vitamin B Complex (Vitamin B Complex Tab) 1 tab PO QAM [facility] Stop: 01/18/21 08:59 Last Admin: 12/21/20 08:38 Dose: 1 tab Documented by: PG Care Time/CCT Total # of Minutes Spent Total Time Spent with Patient: Total time spent is greater than 50% in coordination of care (as documented) at patient's floor/unit and/or counseling patient: Coding Level of Care Code 03617 Subseq Hosp Care Lvl 3 Diagnoses Acute systolic (congestive) heart failure I50.21 Severe aortic stenosis I35.0 CAD (coronary artery disease) I25.10 Coronary Disease-Associated Artery/Lesion type: [place] artery [place] vs. transplanted heart: [place] heart Associated angina: angina presence unspecified S/P CABG (coronary artery bypass graft) Z95.1 Non-ST elevation (NSTEMI) myocardial infarction I21.4 Cardiomyopathy I42.9 (1) CAD (coronary artery disease) Coronary Disease-Associated Artery/Lesion type: [place] artery [place] vs. transplanted heart: [place] heart Associated angina: angina presence unspecified Qualified Code(s): I25.10 - Atherosclerotic heart disease of [place] coronary artery without angina pectoris
--- NOTE | 2020-12-21 15:48 | Billing Data ---
Date of Service December 21, 2020 Coding Level of Care Code 28035 Subseq Hosp Care Lvl 2
[2020-12-21] MEDS: ATORVASTATIN 40 MG TAB PO SCH (21:05)
[2020-12-21] MEDS: ASPIRIN 81 MG ECTAB PO SCH (21:05)
[2020-12-21] MEDS: CLOPIDOGREL BISULFATE 75 MG TAB PO SCH (21:06)
[2020-12-21] MEDS: ENOXAPARIN INJ 40 MG/0.4 ML SYR SQ SCH (21:06)
[2020-12-21] MEDS: MELATONIN 3 MG TAB PO PRN (21:10)
[2020-12-22] MEDS: LEVOTHYROXINE SODIUM 100 MCG TABLET PO SCH (05:47)
[2020-12-22 06:53] LABS: BUN Creatinine Ratio 28.1 (10-20); Calcium 8.5 mg/dl (8.5-10.1); Est GFR (African American) 68.8; Est GFR (Non-African American) 59.4
[2020-12-22] MEDS ORDERED: INSULIN ASPART 100 UNITS/ML 3 ML PEN SC SCH ×2 (07:30→11:30)
[2020-12-22] MEDS: INSULIN HUMAN NPH SC SCH (08:14)
[2020-12-22] MEDS: MULTIVITAMIN TAB PO SCH (08:16)
[2020-12-22] MEDS: ISOSORBIDE MONO EXTENDED REL 60 MG TABCR PO SCH (08:16)
[2020-12-22] MEDS: METOPROLOL SUCC 50MG EXT REL TAB PO SCH (08:16)
[2020-12-22] MEDS: PANCREAZE (LIPASE 10,500U) CAP PO SCH (08:16)
[2020-12-22] MEDS: SACUBITRIL-VALSARTAN 24-26 MG TAB PO SCH (08:16)
[2020-12-22] MEDS: VITAMIN B COMPLEX TAB PO SCH (08:16)
[2020-12-22] MEDS: RANOLAZINE 500 MG ER TAB PO SCH (08:16)
[2020-12-22] MEDS: SPIRONOLACTONE 25 MG TAB PO SCH (08:16)
[2020-12-22] MEDS: PANTOprazole 40 MG TAB PO SCH (08:16)
[2020-12-22] MEDS: LATANOPROST 0.005% OP SOLN 2.5 ML BTL OP SCH (08:17)
--- NOTE | 2020-12-22 08:50 | Pharmacy Report ---
Pharmacy Glycemic Short Note 2 - Date of Service December 22, 2020 - Glycemic Short BSG Results (Last 24 hours): OUTPATIENT ANTIDIABETIC REGIMEN: * NPH 70 units AM + 66 units PM * Regular 40 units AM + 36 units PM * HbA1c = 8.4% (11/30/20) ASSESSMENT: 12/22: * Law received a total of 79 units of insulin yesterday * 35 units basal + 44 units bolus * BSGs were acceptable: [phone] mg/dL * Fasting BSG this AM was 169 mg/dL - improved * Increasing NPH today to provide approximately 40 units of basal insulin * Persistent postprandial hyperglycemia at lunchtime - will tighten carb ratio only with breakfast * BSGs trend steeply downwards after lunch so will loosen carb ratio with lunch, dinner and bedtime 12/21: * Received a total of 64 units of insulin yesterday * 20 units basal + 44 units bolus * BSGs were acceptable: [phone] mg/dL * Fasting BSG this AM is elevated at 196 mg/dL * Will increase NPH scale today to account for this * Should help to split regimen more 50/50 with basal/bolus insulin * Lunchtime postprandial has been consistently higher than other BSGs * If this trend continues, may try a tighter carb ratio with breakfast tomorrow 12/20: * Law received a total of 42 units of insulin yesterday (significant decrease from home regimen) * 25 units basal + 17 units bolus * BSGs were [phone] mg/dL * Patient had another hypoglycemic event last evening requiring 30 grams of carbohydrates to treat. He did feel clammy and diaphoretic. Believe this is secondary to too much NPH being administered with breakfast. * Fasting BSG this AM was controlled at 145 mg/dL. * Given hypoglycemia, will decrease NPH dose this morning by 60% to hopefully prevent hypoglycemia this evening. If dinner BSG is low, will hold evening NPH dose again. * If postprandials trend down, will loosen correction factor and carb ratio as well. Will also loosen goal range today to provide less correctional/prandial insulin. 12/19: * Mr. Ca is an 85 yo M admitted secondary to shortness of breath and heart failure exacerbation. He was recently admitted at [facility] from 12/10-12/12 for similar issues. He is well known to the pharmacy glycemic service. * Random BSG was 277 mg/dL in the ED yesterday upon admission. He was not given any insulin. Upon transfer to the floor, patient's BSG was 51 mg/dL. Per RN note, he received 30 grams of carbs per hypoglycemia protocol. 15 minutes later, BSG was still low at 59 mg/dL so patient received another 30 grams of carbs per hypoglycemia protocol as well as dinner tray. No documentation of how many carbs were consumed with dinner. 15 minutes later, BSG was up to 73 mg/dL. * Mr. Ca did take 70 units of NPH and 40 units in the morning prior to admission per his outpatient regimen. However, he then did not eat until dinner which is the likely cause of this hypoglycemic event. * BSGs throughout the night were 94-134-94 mg/dL. He did not receive any further insulin yesterday. * Fasting BSG was 153 mg/dL this AM. Will start NPH BID with meals and Novolog based on previous admission data which controlled patient well. PLAN FOR INPATIENT GLYCEMIC CONTROL: * Basal insulin - increased * NPH 20-25 units SQ BID per scale * 20 units for BSG 180 mg/dL or below; 25 units for BSG 181 mg/dL or above * Bolus insulin - split carb ratios - tighter with breakfast - looser with lunch, dinner and bedtime * NovoLog per scale ACHS or Q6hrs while NPO * Goal Range: Low 120 mg/dL - High 150 mg/dL * Breakfast: Correction Factor: 15 mg/dL/unit; Nutritional / Prandial insulin per carb ratio of 1 unit per 5 grams CHO consumed * Lunch, Dinner, Bedtime: Correction Factor: 15 mg/dL/unit; Nutritional / Prandial insulin per carb ratio of 1 unit per 6 grams CHO consumed PLAN FOR DISCHARGE: * HbA1c was 8.4% on 11/30/20. HbA1c continues to trend up since last May. Goal HbA1c for this patient would be less than 8% given his age and comorbidities. * He was supposed to have a follow-up appointment with Endocrinology on 12/04/20 but no showed for the appointment. While inpatient, he requires significantly less insulin than what his outpatient regimen is. Therefore, I am hesitant to recommend any adjustments to insulin regimen upon discharge. * I would recommend that patient re-establish care with endocrinology upon discharge.
[2020-12-22] MEDS ORDERED: BUMETANIDE 1 MG TAB PO SCH (09:00)
--- NOTE | 2020-12-22 10:15 | Discharge Summary ---
Date of Service December 22, 2020 Admission HPI Per Admitting Provider Law Ca is an 85-year-old male who presents to the ER with increasing shortness of breath since his last discharge for congestive heart failure on December 12 (6 days ago). He has recently had multiple admissions for CHF from December 03 to December 05 and subsequently from December 10-. He improved on both these occasions with IV Lasix 40 mg twice daily. After his last admission he was discharged on Lasix 40 mg p.o. twice daily. He reports feeling well for the day of and day after discharge including a visit to the grocery store. However on December 14 (4 days ago) he went again to the grocery store and became very short of breath on exertion. He called the heart failure clinic either or Friday at which point his Lasix was increased to 80 mg in the morning and 40 mg at night. Despite this he continued to feel increasing shortness of breath on exertion and his urine output has not increased despite high dose of Lasix. Due to worsening shortness of breath and 5 pounds weight g ain since yesterday he decided to come to the ER today. Associated PND and orthopnea. He denies any chest pain, palpitations, claudication, presyncope or syncope. In addition he notes his morning glucose was 47. He does note feeling hypoglycemic symptoms such as fatigue at this level. He took his usual Humulin N (70 units and R 40 units) but also ate breakfast and glucose currently 277 in the ER. On his prior hospitalizations one of his main concerns has been right upper quadrant pain which was suspected to be liver congestion from congestive heart failure. He reports this is now completely resolved and has not returned since last hospitalization. In the ER BNP improved to 3355 (from 4760, last hospitalization), chest x-ray showed no significant change to pulmonary edema bilateral pleural effusions from prior chest x-ray. EKG was concerning for ST elevations in inferior leads however this appears to be an old finding as ST elevation much more prominent in September with STEMI at that time and has been intermittently elevated since then. However given elevated troponin the ER physician discussed his case was discussed with his outpatient heart failure nurse practitioner and recommended admission to trend troponins and IV diuretics until euvolemic. Admission Exam Per Admitting Provider Constitutional: well developed; + not well nourished and no acute distress Eyes: + anicteric sclerae; normal pupil size ENMT: external ear and nose normal, oropharynx normal Neck: trachea midline Respiratory: normal respiratory effort (short of breath on minimal exertion) Auscultation: + breath sounds absent (Bibasal to mid zone b/l) and + crackles (fine, mid zone posteriorly b/l); no diminished lung sounds Cardiovascular: Rate/Rhythm: regular rate and regular rhythm Heart Sounds: + murmur (BLAZE 3/6 loudest RUSB, early opening) Extremities: + pedal edema (1+ pre-tibial) Gastrointestinal (Abdomen): normal bowel sounds, soft, nontender, no hepatosplenomegaly Musculoskeletal: no cyanosis or clubbing, extremities motor strength 5/5 Skin: no rashes, warm and dry Neurologic: moves all extremities and awake; not confused Psychiatric: A+Ox3, euthymic affect Principal Diagnosis Acute on chronic CHF Discharge Exam Gen: WD/WN, obese, NAD. Cardiac: RRR. Normal S1-S2. 2/6 systolic ejection murmur at right upper sternal border. No rubs or gallops. Respiratory: Clear to auscultation bilaterally without wheezes, rales, or rhonchi. Abdomen: Soft, nontender, nondistended, normoactive bowel sounds. No bruits noted. Psych: A&Ox3, euthymic affect. Speech normal. Discharge Data Allergies Allergy/AdvReac Type Severity Reaction Status Date / Time adhesive Allergy Mild RASH Verified 12/18/20 10:49 Penicillins Allergy Unknown RASH Unverified 12/18/20 10:49 Consultations 12/18/20 11:26 ED Decision to Admit Stat 12/18/20 11:34 Consult Cardiology Routine 12/18/20 14:58 [facility] [place] [facility] Referral Routine Hospital Course (1) Acute on chronic diastolic (congestive) heart failure: Law Ca is an 85-year-old male w/ PMH of CAD status post CABG, history of preserved EF heart failure, moderate to severe aortic stenosis, moderate MR, pulmonary hypertension, hyperlipidemia, DM2 on insulin, obesity, hypertension who was admitted to [facility] due to CHF exacerbation. Acute on chronic CHF - previously preserved EF but now reduced on echo as below - Echo: Mod to severely reduced sys fxn (EF 30-35%); global hypokinesis w/ some areas of akinesis (see Echo results from 12/19) - LV sys function declined compared to echo on 12/04 - Cardiology consulted, recommended medications as below - Switched to Bumex 2mg PO qAM from Lasix PO - Started on spironolactone 25mg PO qAM during hospitalization - Started on Entresto 24/26mg PO BID during hospitalization - Continued metoprolol succinate 200mg daily - Home losartan stopped and Entresto started as above - Low Na, Heart healthy diet - Daily weights Severe aortic stenosis - Suspect major cause of congestive heart failure as above - Cardiology consulted: - Recommended referral for TAVR evaluation - Office staff making appt for patient CAD (coronary artery disease) - STEMI in 09/22 s/p CABG - Continued dual antiplatelet therapy with aspirin and clopidogrel - Continued metoprolol as above, losartan discontinued in place of Entresto as above - Increased atorvastatin to 40mg daily from 20mg daily NSTEMI - changes on Echo as above and elevated troponin point to likely OR, but no real ST changes on EKG from earlier in December - Cardiology consulted: - He did not present with acute coronary syndrome or his previous anginal symptom. Elevated troponin/OR likely due to CHF exacerbation, significant aortic stenosis, and underlying CAD. Medically managed - Med management as above Cardiomyopathy - Cardiology consult: - Likely due to significant aortic stenosis and underlying CAD. Continue metoprolol succinate 200 mg daily. Continue Entresto. Continue spironolactone. If LV systolic function does not improve within 90 days of optimal therapy or following aortic valve replacement, would consider ICD for primary prevention. - Med management as above Diabetes Mellitus - long-term insulin use - HbA1C 8.4 in 11/23 - Pharmacy consulted for glycemic control - Continue home meds at discharge Primary Hypothyroidism - TSH normal in - Continued home levothyroxine 100 mcg p.o. daily Pancreatic insufficiency - Continued home pancreatic enzymes twice daily GERD without esophagitis - Continued home pantoprazole 40 mg p.o. every morning FENGI: Low Na, Heart Healthy, CC/DM2 Code: DNR/DNI (2) CAD (coronary artery disease): (3) Elevated troponin: (4) Severe aortic stenosis: (5) Diabetes mellitus, with long-term current use of insulin: (6) Primary hypothyroidism: (7) Pancreatic insufficiency: (8) GERD without esophagitis: Total Time Total Time Spent Total Time Spent (In Minutes): <30 Discharge Plan Discharge Items Patient Disposition: Home - Self-Care Reason For Visit: ACUTE CHF Discharge Diagnosis: Acute CHF Activity: Per Instructions section Non-emergency contact: Primary Care Provider and Digital Director Call non-emergency contact if: you have any medication questions and your symptoms worsen Follow-up/Referrals: Abraham Aguirre MD [Primary Care Provider] - 12/28/20 11:20 am Naomi Farris PA-C [Physician Horticultural Services Supervisor] - 12/26/20 2:00 pm (Congestive Heart Failure Program Appointment Information Early follow up is essential to managing your heart failure. An appointment has been scheduled for you with the [facility] Heart Failure Program within 7 days of discharge. Anticipate this visit to be 30-60 minutes long. Please expect a industrial safety engineer phone call from one of our nurses approximately 48 hours from discharge. They will also be placing an order for lab work to be completed 1-2 days prior to your heart failure follow up appointment. Please be sure to have this done so we can go over the results when you come in. Office Location The cardiology office building is located in front of the hospital at [address] Bring the following with you to your follow-up doctor appointments: Please bring your daily weight log any discharge paperwork all of your medication bottles with you to this visit. ) Diet: Carb Consistent or DM2 and Heart Healthy Addtl Attending Provider Instructions: You were admitted to [facility] due to exacerbation of your congestive heart failure. We think this could've been due to a combination of factors including myocardial infarction, sodium intake, underlying aortic stenosis, and possibly lack of absorption of your Lasix. You were switched to intravenous Bumex while admitted and improved nicely. You will continue to take an oral version of this medication going forward, and will also take another diuretic, spironolactone. Your Echocardiogram did show a decrease in function from your most recent one. This in combination with your elevated troponin points to a likely myocardial infarction, as you were made aware. As such, cardiology recommended that you stop taking losartan and start taking Entresto instead. For your aortic stenosis, cardiology has started setting you up for a TAVR at [facility]. You will have a follow-up visit with the heart failure clinic early next week as well. Keep in mind that a very important factor in avoiding recurrence of a CHF exacerbation in the future is maintaining a low sodium diet, as we had discussed. You will make various medication changes as outlined below: 1. Stop taking your losartan 2. Stop taking your Lasix (furosemide) 3. Your dose of atorvastatin will be changed from 20mg daily to 40mg daily (we have sent a new prescription for you) 4. Start taking Entresto 24/26mg, 1 pill twice daily (morning & night) 5. Start taking Bumex (bumetanide) 2mg (you will take two 1mg pills) daily 6. Start taking spironolactone 25mg daily Addtl Assistant Press Operator Offset Provider Instructions: Congestive Heart Failure Program Appointment Information Early follow up is essential to managing your heart failure. An appointment has been scheduled for you with the [facility] Heart Failure Program within 7 days of discharge. Anticipate this visit to be 30-60 minutes long. Please expect a industrial safety engineer phone call from one of our nurses approximately 48 hours from discharge. They will also be placing an order for lab work to be completed 1-2 days prior to your heart failure follow up appointment. Please be sure to have this done so we can go over the results when you come in. Office Location The cardiology office building is located in front of the hospital at [address] Bring the following with you to your follow-up doctor appointments: * Please bring your daily weight log * any discharge paperwork * all of your medication bottles with you to this visit. Pending Studies at Discharge: No Stand-Alone Forms: My [facility], Smoking Cessation Medications and DC Order Prescriptions: New atorvastatin 40 mg tablet 40 mg PO DAILY Qty: 30 RF: 1 Entresto 24-26 mg tablet 1 tab PO BID Qty: 60 RF: 1 spironolactone 25 mg tablet 25 mg PO DAILY Qty: 30 RF: 1 bumetanide 1 mg tablet 2 mg PO DAILY Qty: 60 RF: 1 Continued (DME) OneTouch Ultra Blue Test Strip Strip See Rx Instructions .ROUTE .MEDSUPPLY Qty: 180 RF: 3 ranolazine 500 mg tablet extended release 12 hr 500 mg PO BID Qty: 180 RF: 3 Creon 3,000-9,500- 15,000 unit capsule,delayed release(DR/EC) 1 cap PO BID Qty: 60 RF: 5 coenzyme Q10 1 cap PO DAILY RF: 0 isosorbide mononitrate 60 mg tablet extended release 24 hr 60 mg PO DAILY Qty: 30 RF: 0 nitroglycerin [Nitrostat] 0.4 mg tablet, sublingual 0.4 mg sublingual PRN PRN (Reason: chest pain) Qty: 30 RF: 0 (DME) insulin syringe-needle U-100 [UltiCare] 1 mL 31 gauge x 5/16 syringe See Rx Instructions .ROUTE .MEDSUPPLY RF: 0 latanoprost 0.005 % drops 1 drops OP DAILY RF: 0 multivitamin [Daily Multi-Vitamin] tablet 1 tab PO QAM RF: 0 metoprolol succinate 100 mg tablet extended release 24 hr 200 mg PO QAM RF: 0 levothyroxine 100 mcg tablet 100 mcg PO QAM RF: 0 pantoprazole [Protonix] 40 mg tablet,delayed release (DR/EC) 40 mg PO QAM RF: 0 Humulin R Regular U-100 Insuln 100 unit/mL solution 36 - 40 unit SQ AMPM RF: 0 Humulin N NPH U-100 Insulin 100 unit/mL suspension 66 - 70 unit SQ AMPM RF: 0 vitamin B complex tablet 1 tab PO QAM RF: 0 potassium chloride [Klor-Con M10] 10 mEq tablet,ER particles/crystals 10 meq PO QAM RF: 0 clopidogrel 75 mg tablet 75 mg PO QPM RF: 0 aspirin 81 mg tablet,delayed release (DR/EC) 81 mg PO QPM RF: 0 Discontinued atorvastatin 20 mg tablet 20 mg PO QPM Qty: 90 RF: 3 losartan 25 mg tablet 25 mg PO DAILY Qty: 90 RF: 3 furosemide 20 mg Tablet 60 mg PO QAM RF: 0 furosemide 40 mg tablet 40 mg PO QPM RF: 0 Discharge Orders: Discharge Order (Routine); Ordered 12/22/20 Ordered By: Luis Gleason Admission Data Admit Date/Time: 12/19/20 17:03 Attending Provider: Nikko Santos Admit Provider: Jose Maria Sorto Primary Care Provider: Abraham Aguirre V. Other Providers: Jose Maria Sorto ; Gamaliel Galeas ; Naomi Farris Other Interventions: Discharge Summary Assessment (RN) Last Done: 12/22/20 10:47 Supervising Physician Co-Signing Physician Notes I personally examined the patient and verified all [place] points of history and exam, discussed case, and agree with decision making with Dr Shea. feeling better. feeling up to going home Vitals noted, in general he is awake and alert pleasant no distress. HEENT normocephalic atraumatic mucous membranes moist. Breathing unlabored no accessory muscle use good effort. Skin shows no rashes no pallor or icterus. Neuro shows cranial nerves II through XII be grossly intact gross motor and sensory intact. Acute on chronic diastolic CHF with acute diastolic CHF subsequent to NSTEMI present on admission, in the setting of severe coronary diseasecontinues to show good improvement. stable for home - med management as above. close f/u. TAVR eval as outpt Resident Activity Tracking Resident Involvement: Resident Care Provided Care Provided: Adult Hospital Medicine
--- NOTE | 2020-12-22 11:33 | Cardiology Progress Note ---
Date of Service December 22, 2020 Assessment & Plan (1) Acute systolic (congestive) heart failure: (2) Severe aortic stenosis: (3) CAD (coronary artery disease): (4) S/P CABG (coronary artery bypass graft): (5) Non-ST elevation (NSTEMI) myocardial infarction: (6) Cardiomyopathy: ASSESSMENT/PLAN: 1. Acute systolic CHF: He appears euvolemic and well compensated on exam. Continue Bumex 2 mg p.o. daily on discharge. Continue spironolactone 25 mg daily. Continue metoprolol succinate 200 mg daily. Continue low-dose Entresto. Low-sodium diet, less than 2000 mg daily. Heart failure program follow-up visit scheduled for early next week. 2. Significant aortic stenosis: His aortic stenosis on most recent echo appeared moderate to severe however this is in the setting of depressed LV systolic function. This likely underestimates his stenosis. His valve area on 12/04/2020 echo was 0.75 cm2. Recommended referral for TAVR evaluation. He is agreeable. Office staff has been asked to start making this appointment with echo and cath images placed on disc to send to [facility] and also carry in hand. 3. CAD s/p CABG x 2: No angina despite walking in the hallway. Had severe disease that was treated medically during September 2020 catheterization. Continue aspirin 81 mg daily. Continue high-intensity statin therapy and beta- johnie. He did not present with acute coronary syndrome. This is likely due to demand ischemia in the setting of CHF exacerbation, significant aortic stenosis, and underlying CAD. 4. NSTEMI: He did not present with acute coronary syndrome or his previous anginal symptom. Elevated troponin/ND likely due to CHF exacerbation, significant aortic stenosis, and underlying CAD. Medically managed. No angina. 5. Cardiomyopathy: Likely due to significant aortic stenosis and underlying CAD. Continue metoprolol succinate 200 mg daily. Continue Entresto. Continue spironolactone. If LV systolic function does not improve within 90 days of optimal therapy or following aortic valve replacement, would consider ICD for primary prevention. 6. Disposition: Follow-up with heart failure program early next week. Follow- up with Dr. Trotter, primary tax collector. Follow-up at [facility] for evaluation of TAVR. Can be discharged from a cardiac perspective. Admission and Anticipated Discharge Date Admission Date: December 19, 2020 Subjective Patient was seen this morning. He denies shortness of breath, orthopnea, syncope, near-syncope, chest pain, palpitations, edema, or bleeding. He feels as though he is ready to go home today. He is tolerating medications well. Review of systems: As above. Physical Exam Physical Exam: Gen.: No acute distress. Alert and oriented. HEENT: Anicteric sclera. Neck: No JVD. No hepatic jugular reflux. Cardiac: Regular. Normal S1-S2. 2/6 late peaking systolic ejection murmur heard best at right upper sternal border. No rubs or gallops. Pulmonary: Decreased breath sounds bilateral bases, otherwise clear to auscultation bilaterally without wheezes, rales, or rhonchi. Abdomen: Soft, nontender, nondistended, with normoactive bowel sounds. No bruits noted. Extremities: 2+ radial pulses bilaterally. 2+ posterior tibialis pulses bilaterally. No significant edema. No cyanosis. Psychiatric: Affect appears appropriate. Results & Data ([facility]) Vital Signs (Past 12 Hours) Vital Signs Temp Pulse Pulse Resp BP BP Pulse Ox 12/22/20 10:47 36.4 C L 69 20 99/62 L 102/64 96 12/22/20 08:18 69 102/64 12/22/20 08:03 36.4 C L 68 20 99/62 L 96 12/22/20 08:00 63 12/22/20 04:00 37.0 C 65 18 114/66 96 12/22/20 00:01 37.1 C 72 18 119/68 95 Intake & Output 12/20/20 12/21/20 12/22/20 12/23/20 06:59 06:59 06:59 06:59 Intake Total 1100 / 1100 952 / 952 995 / 995 Output Total 4725 / 4725 2750 / 2750 1650 / 1650 Balance -3625 / -3625 -1798 / -1798 -655 / -655 Weight 233 lb 0.458 oz 231 lb 0.711 oz 230 lb 9.656 oz 230 lb 9.656 oz Laboratory Results Laboratory Results - last 24 hr 12/21/20 12/21/20 12/22/20 16:32 20:54 05:45 Sodium 138 Potassium 4.0 Chloride 105 Carbon Dioxide 24 Anion Gap 9.0 BUN 32 H Creatinine 1.13 Est Cr Clr Drug Dosing 57.0 Est GFR ( Amer) 68.8 Est GFR (Non-Af Amer) 59.4 BUN/Creatinine Ratio 28.1 H Glucose 163 H POC Glucose 140 H 116 H Calcium 8.5 12/22/20 07:27 Sodium Potassium Chloride Carbon Dioxide Anion Gap BUN Creatinine Est Cr Clr Drug Dosing Est GFR ( Amer) Est GFR (Non-Af Amer) BUN/Creatinine Ratio Glucose POC Glucose 169 H Calcium Diagnostic Findings Telemetry personally reviewed: Sinus rhythm. Medications Administered Current Inpatient Medications Acetaminophen (Acetaminophen 325 Mg Tab) 650 mg PO Q4H PRN PRN Reason: Pain or Fever Stop: 01/17/21 14:57 Al Hydrox/Mg Hydrox/Simethicone (Aluminum/Magnesium Susp 30 Ml Udc) 15 ml PO Q4H PRN PRN Reason: Dyspepsia Stop: 01/17/21 14:57 Lipase/Protease/Amylase (Pancreaze (Lipase 10,500u) Cap) 1 cap PO BIDM ARIAN Stop: 01/17/21 16:59 Last Admin: 12/22/20 08:16 Dose: 1 cap Documented by: Aspirin (Aspirin 81 Mg Ectab) 81 mg PO QPM ARIAN Stop: 01/17/21 20:59 Last Admin: 12/21/20 21:05 Dose: 81 mg Documented by: Atorvastatin Calcium (Atorvastatin 40 Mg Tab) 40 mg PO QPM ARIAN Stop: 01/18/21 20:59 Last Admin: 12/21/20 21:05 Dose: 40 mg Documented by: Bumetanide (Bumetanide 1 Mg Tab) 2 mg PO QAM ARIAN Stop: 01/21/21 08:59 Last Admin: 12/22/20 08:16 Dose: 2 mg Documented by: Clopidogrel Bisulfate (Clopidogrel Bisulfate 75 Mg Tab) 75 mg PO QPM ARIAN Stop: 01/17/21 20:59 Last Admin: 12/21/20 21:06 Dose: 75 mg Documented by: Dextrose (Dextrose 50% 50 Ml Syringe) 25 - 50 ml IV UD PRN; Protocol PRN Reason: Hypoglycemia Protocol Stop: 01/17/21 14:57 Enoxaparin Sodium (Enoxaparin Inj 40 Mg/0.4 Ml Syr) 40 mg SQ QPM ARIAN Stop: 01/17/21 20:59 Last Admin: 12/21/20 21:06 Dose: 40 mg Documented by: Glucagon (Glucagon For Inj 1 Mg Vial) 1 mg SQ UD PRN; Protocol PRN Reason: Hypoglycemia Protocol Stop: 01/17/21 14:57 Glucose (Glucose 10 Tabs/Tube) 4 - 8 tabs PO UD PRN; Protocol PRN Reason: Hypoglycemia Protocol Stop: 01/17/21 14:57 Glucose (Glucose 40% Gel 15 Gm Tube) 15 - 30 gm PO UD PRN; Protocol PRN Reason: Hypoglycemia Protocol Stop: 01/17/21 14:57 Insulin Aspart (Insulin Aspart 100 Units/Ml 3 Ml Pen) 0 units SC 0730 [facility]; Protocol Stop: 01/17/21 16:29 Last Admin: 12/22/20 08:14 Dose: 11 units Documented by: Insulin Aspart (Insulin Aspart 100 Units/Ml 3 Ml Pen) 0 units SC 1130,1630,2100 [facility]; Protocol Stop: 01/21/21 11:29 Insulin Human NPH (Insulin Human Nph) 0 units SC BIDM [facility]; Protocol Stop: 01/18/21 08:14 Last Admin: 12/22/20 08:14 Dose: 20 units Documented by: Isosorbide Mononitrate (Isosorbide [place] Extended Rel 60 Mg Tabcr) 60 mg PO DAILY [facility] Stop: 01/18/21 08:59 Last Admin: 12/22/20 08:16 Dose: 60 mg Documented by: Latanoprost (Latanoprost 0.005% Op Soln 2.5 Ml Btl) 1 drops OP DAILY [facility] Stop: 01/18/21 08:59 Last Admin: 12/22/20 08:17 Dose: 1 drops Documented by: Levothyroxine Sodium (Levothyroxine Sodium 100 Mcg Tablet) 100 mcg PO DAILYBB [facility] Stop: 01/18/21 06:29 Last Admin: 12/22/20 05:47 Dose: 100 mcg Documented by: Melatonin (Melatonin 3 Mg Tab) 6 mg PO HS PRN PRN Reason: Sleep Stop: 01/18/21 22:36 Last Admin: 12/21/20 21:10 Dose: 6 mg Documented by: Metoprolol Succinate (Metoprolol Succ 50mg Ext Rel Tab) 200 mg PO QAM [facility] Stop: 01/18/21 08:59 Last Admin: 12/22/20 08:16 Dose: 200 mg Documented by: Miscellaneous (Carbohydrates For Hypoglycemia ) 15 - 30 gm PO UD PRN PRN Reason: Hypoglycemia Protocol Stop: 01/17/21 14:57 Last Admin: 12/19/20 16:48 Dose: 30 gm Documented by: Miscellaneous Information (Pharmacy Glycemic Mgmt Consult) 1 ea N/A UD PRN; Protocol PRN Reason: Consult Stop: 01/17/21 15:25 Multivitamins (Multivitamin Tab) 1 tab PO QAM [facility] Stop: 01/18/21 08:59 Last Admin: 12/22/20 08:16 Dose: 1 tab Documented by: Nitroglycerin (Nitroglycerin Sl 0.4 Mg/Tab Tab) 0.4 mg SL UD PRN PRN Reason: Chest Pain Stop: 01/17/21 14:57 Ondansetron HCl (Ondansetron Inj 2 Mg/Ml 2 Ml Vial) 4 mg IV Q6H PRN PRN Reason: Nausea Stop: 01/17/21 14:57 Pantoprazole Sodium (Pantoprazole 40 Mg Tab) 40 mg PO QAM [facility] Stop: 01/18/21 08:59 Last Admin: 12/22/20 08:16 Dose: 40 mg Documented by: Polyethylene Glycol (Polyethylene (Miralax) 17 Gm Pack) 17 gm PO DAILY PRN PRN Reason: Constipation Stop: 01/17/21 14:57 Ranolazine (Ranolazine 500 Mg Er Tab) 500 mg PO BID [facility] Stop: 01/17/21 20:59 Last Admin: 12/22/20 08:16 Dose: 500 mg Documented by: Sacubitril/Valsartan (Sacubitril-Valsartan 24-26 Mg Tab) 1 tab PO BID [facility] Stop: 01/20/21 08:59 Last Admin: 12/22/20 08:16 Dose: 1 tab Documented by: Spironolactone (Spironolactone 25 Mg Tab) 25 mg PO QAM [facility] Stop: 01/19/21 08:59 Last Admin: 12/22/20 08:16 Dose: 25 mg Documented by: Vitamin B Complex (Vitamin B Complex Tab) 1 tab PO QAM [facility] Stop: 01/18/21 08:59 Last Admin: 12/22/20 08:16 Dose: 1 tab Documented by: PG Care Time/CCT Total # of Minutes Spent Total Time Spent with Patient: Total time spent is greater than 50% in coordination of care (as documented) at patient's floor/unit and/or counseling patient: Coding Level of Care Code 62755 Subseq Hosp Care Lvl 3 Diagnoses Acute systolic (congestive) heart failure I50.21 Severe aortic stenosis I35.0 CAD (coronary artery disease) I25.10 Associated angina: angina presence unspecified Coronary Disease-Associated Artery/Lesion type: [place] artery [place] vs. transplanted heart: [place] heart S/P CABG (coronary artery bypass graft) Z95.1 Non-ST elevation (NSTEMI) myocardial infarction I21.4 Cardiomyopathy I42.9 (1) CAD (coronary artery disease) Associated angina: angina presence unspecified Coronary Disease-Associated Artery/Lesion type: [place] artery [place] vs. transplanted heart: [place] heart Qualified Code(s): I25.10 - Atherosclerotic heart disease of [place] coronary artery without angina pectoris
--- NOTE | 2020-12-22 14:11 | Billing Data ---
Date of Service December 22, 2020 Coding Level of Care Code D/C Day Management <30 mins
--- NOTE | 2020-12-30 07:39 | Coding Query ---
CODING QUERY To promote full compliance with coding requirements relating to patient care, provider participation is requested in all cases of manager process improvement uncertainty. Please assist us with the question(s) below: Coding Question(s): Per Cardiology Consult/Progress Notes, patient has "Acute Systolic (Congestive) Heart Failure". 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..." Please clarify below: ( ) Acute on Chronic Diastolic CHF w/ Acute Diastolic CHF ( ) Acute on Chronic Diastolic CHF w/ Acute Systolic CHF (x ) Other Please Explain: acute on chronic combined systolic and diastolic chf Thank you Boris Valenzuela Principal Diagnosis: "that condition established after study, to be chiefly responsible for occasioning the admission of the patient to the hospital for care." Co-Existing Principal Diagnosis: "when two or more diagnoses equally meet the criteria for principal diagnosis as determined by the circumstances of admission, diagnostic work up, and/or therapy provided, and the Alphabetic Index, Tabular List, or another coding guideline does not provide sequencing direction, any one of the diagnoses may be sequenced first." "When the physician has documented what appears to be a current diagnosis in the body of the record, but has not included the diagnosis in the final diagnostic statement, the physician should be asked whether the diagnosis should be added." (Source Coding Clinic 2 QTR90. p3-4) SHERRILL
== END 2020-12-22 12:12 | disposition home or self-care (01) | DRG 280 ==
LOC: ED 08:37 → 2N 08:37 → SUATTDRO 12:16 → 2N 14:21